=== PATIENT | male | born 1955 | race Caucasian/White ===

== ENCOUNTER 2018-10-13 21:07 | Inpatient (IN) | payer MEDICARE, OTHER ==
[2018-10-13 21:37] LABS: #Eosinphils 0.2 thou/uL (0.0-0.7); #Lymphocytes 2.7 thou/uL (1.20-3.40); #Monocytes 0.9 thou/uL (0.11-0.59); #Neutrophils 7.9 thou/uL (1.40-6.50); %Basophils 0.4 % (0.0-1.0); %Eosinophils 1.9 % (0.0-10.0); %Monocytes 7.8 % (0.0-10.0); Hemoglobin 14.5 g/dL (14.0-18.0); Mean Corpuscular HGB CONC 30.9 g/dL (32.0-36.0); Mean Corpuscular Hemoglobin 27.8 pg (27.0-31.0); Mean Platelet Volume 7.2 fL (7.4-10.4); Platelet Count 366 thou/uL (130-400); RBC Distribution Width 13.2 % (11.5-14.5); White Blood Cell (WBC) Count 11.7 thou/uL (4.8-10.8)
[2018-10-13] MEDS ORDERED: Heparin 10,000 UNITS/1 ML VIAL ONE (21:37)
[2018-10-13] MEDS ORDERED: Verapamil 5 MG/2 ML VIAL ONE (21:37)
[2018-10-13] MEDS ORDERED: Nitroglycerin 100MG/250ML BOT 250 ML ONE (21:37)
[2018-10-13 21:43] LABS: PTT 31.4 SEC (22.9-36.1); Prothrombin Time 13.5 SEC (12.0-14.7)
--- NOTE | 2018-10-13 21:43 | RAD ---
Chest one view HISTORY: Chest pain. FINDINGS: Cardiac silhouette is magnified and enlarged. Pulmonary vasculature is engorged. Diffuse mi ld airspace opacity. Mediastinum is midline. No lobar consolidation or evidence of pneumothorax. IMPRESSION: Pulmonary vascular congestion with mild diffuse edema.
[2018-10-13] MEDS ORDERED: Atropine Sulfate 1 mg/10 ml Syringe ONE (21:50)
[2018-10-13 21:55] LABS: ALT (SGPT) 15 U/L (8-55); AST (SGOT) 16 U/L (5-34); Albumin 3.8 g/dL (3.4-4.8); Alkaline Phosphatase 66 U/L (40-150); Anion Gap 13 mmol/L (10-20); BUN (Urea Nitrogen) 11 mg/dL (8.4-25.7); Bilirubin, Total 0.5 mg/dL (0.2-1.2); CK (CPK) 125 U/L (30-200); Calc. Creatinine Clearance 0 mL/min (70-130); Calcium 9.5 mg/dL (7.8-10.44); Carbon Dioxide 28 mmol/L (23-31); Chloride 99 mmol/L (98-107); Estimated GFR-MDRD 78; Globulin 3.3 g/dL (2.4-3.5); Glucose 158 mg/dL (80-115); Potassium 4.2 mmol/L (3.5-5.1); Protein, Total 7.1 g/dL (5.8-8.1); Sodium 136 mmol/L (136-145)
[2018-10-13 22:19] LABS: CKMB 3.5 ng/mL (0-6.6)
[2018-10-13] MEDS ORDERED: Heparin 10,000 UNITS/ 10 ML VIAL ONE (22:22)
[2018-10-13] MEDS ORDERED: Metoprolol Tartrate 5 MG/5 ML VIAL ONE (22:22)
[2018-10-13] MEDS ORDERED: Norepinephrine 4 MG/4 ML VIAL ONE (22:25)
[2018-10-13] MEDS ORDERED: Furosemide 40 MG/4 ML VIAL ONE (23:01)
[2018-10-13] MEDS ORDERED: Nitroglycerin 0.4 MG TAB (25 Tab Bottle) SL PRN (23:06)
[2018-10-13] MEDS ORDERED: Acetaminophen/Codeine 30-300mg Tablet PO PRN ×2 (23:06)
[2018-10-13] MEDS ORDERED: traMADol HCl 50 MG TAB PO PRN (23:06)
[2018-10-13] MEDS ORDERED: Norepinephrine 8 MG/250 ML BAG IVPB PRN (23:07)
[2018-10-13] MEDS ORDERED: Insulin Regular 300 UNITS/3 ML VIAL SC PRN (23:07)
[2018-10-13] MEDS ORDERED: Dextrose 50% Abboject 50 ML SYRINGE IVP PRN (23:07)
[2018-10-13] MEDS ORDERED: Dextrose 5% in Water 1,000 ML IV PRN (23:07)
[2018-10-13] MEDS ORDERED: Morphine 4 MG/ML VIAL SLOW IVP PRN ×2 (23:14→23:15)
[2018-10-13] MEDS ORDERED: Heparin 10,000 UNITS/ 10 ML VIAL SLOW IVP SCH (23:15)
[2018-10-13] MEDS ORDERED: Heparin 25,000 units/D5W 500 ML IV SCH (23:15)
[2018-10-13] MEDS ORDERED: ALPRAZolam 1 MG TAB PO SCH (23:45)
[2018-10-13] MEDS: Furosemide 40 MG/4 ML VIAL SLOW IVP SCH (23:55)
[2018-10-14 00:08] VITALS: BMI 50.0
[2018-10-14 00:46] LABS: Troponin I 0.882 ng/mL (< 0.028)
--- NOTE | 2018-10-14 02:34 | HP ---
INDICATION FOR ADMISSION: 63-year-old gentleman suffered an acute ST-segment elevation inferior myocardial infarction. HISTORY OF PRESENT ILLNESS: This very unfortunate 63-year-old gentleman who has had no previous cardiac history that he is aware of, started having some increasing chest pain around 6 p.m. this evening. He has been having some indigestion for the last couple months. He said the pain waxed and waned during the day today, but then became worse this evening, radiated to the left shoulder. He has taken a breathing treatment, did not improve. He has multiple risk factors of coronary artery disease which include hypertension, hypercholesterolemia, diabetes, continued tobacco abuse. PAST MEDICAL HISTORY: Significant for insulin-dependent diabetes, hypertension, COPD. SOCIAL HISTORY: He continues to smoke one-third pack a day since about 50 years. He is disabled. ALLERGIES: HE HAS INTOLERANCE TO CODEINE. MEDICATIONS: His medications, however, include, 1. Hydrocodone. 2. Alprazolam. 3. Ranitidine. 4. Some type of blood pressure medicine, which he cannot remember. 5. Aspirin. 6. He had been on cholesterol medicine in the past, was told to stop taking it and he was having some cramping. 7. He is on insulin as well as tamsulosin. 8. He is on Novolin insulin 9. Some type of medicine that he is uncertain as to whether or not it is a beta leandro. He takes about 25 mg tablet, he takes half a tablet twice a day. REVIEW OF SYSTEMS: He has dentures. He complaints of chest discomfort, gastroesophageal reflux disease. He continues to smoke. He has shortness of breath. He has underlying COPD. He denied any lower extremity claudication type symptoms. He had no GI or complaints. No other musculoskeletal complaints and no neurologic complaints. PHYSICAL EXAMINATION: GENERAL: Reveals a morbidly obese middle-aged gentleman. VITAL SIGNS: Blood pressure 156/106 and then decreased down to 120s to 130s systolic in the emergency room after he was given 2 mg of IV Lopressor. HEENT: Shows the head to be normocephalic and atraumatic. Carotid pulses are present without any bruits. CHEST: Actually appears to be clear to auscultation. CARDIOVASCULAR: Reveals a regular rhythm at this time, somewhat tachycardic, but otherwise appeared to be regular, could not hear any murmurs. ABDOMEN: Shows morbid obesity. Positive bowel sounds. EXTREMITIES: Show no clubbing or cyanosis. He has 1+ lower extremity edema. Pedal pulses are present. Radial pulse is present. NEUROLOGIC: The patient appears to be intact. SKIN: Warm and dry at this time. EKG shows an acute inferior myocardial infarction. Laboratory data is still pending. He does have a sinus rhythm. IMPRESSION AND PLAN: 1. Acute inferior myocardial infarction. The patient was taken emergently to the cardiac labor relations teacher to undergo further evaluation by cardiac catheterization, possible intervention. He continues to have chest pain 01/10 with EKG changes compatible with inferior myocardial infarction, ST-segment elevation. I have explained the procedure, the risks to him to include bleeding, infection, possible myocardial infarction, cerebrovascular accident, renal insufficiency, allergic contrast reaction, and even the possibility of . He understands and agrees to proceed. We will plan for emergent cardiac catheterization. 2. History of diabetes. We have no laboratory data as of yet. We will obtain the laboratory data. I will ask the Hospital Service to take over to do the admission of the patient so that we can address his diabetes as well as his chronic obstructive pulmonary disease. He most likely will need to have a Pulmonology evaluation also while he is in the hospital. [facility] Further recommendations will depend on the results of the cardiac catheterization. Job ID: [id number] [facility]
[2018-10-14] MEDS ORDERED: CEFAZOLIN 2 GM in Premix Bag 1 BAG IVPB SCH (07:30)
[2018-10-14] MEDS ORDERED: Phenylephrine HCL 10 MG/ML VIAL ONE (07:57)
[2018-10-14] MEDS ORDERED: Thrombin 5000 UNITS/5 ML VIAL ONE ×2 (07:57→15:26)
[2018-10-14] MEDS ORDERED: Heparin 10,000 UNITS/1 ML VIAL 30,000 UNITS in Sodium Chloride 0.9% 1,000 ML FS SCH (08:00)
[2018-10-14] MEDS ORDERED: [UNRECOGNIZED DRUG - OTHER] FS SCH (08:15)
[2018-10-14] MEDS ORDERED: Famotidine/PF 20 mg/2ml Vial ONE (08:39)
[2018-10-14] MEDS ORDERED: Insulin Regular 300 UNITS/3 ML VIAL ONE (08:39)
[2018-10-14] MEDS ORDERED: Norepinephrine 8 MG/0.9% NS 250 ML ONE (08:39)
[2018-10-14] MEDS ORDERED: Lisinopril 5 MG TAB PO SCH (09:00)
[2018-10-14] MEDS ORDERED: ALPRAZolam 0.25 MG TAB PO SCH (09:00)
[2018-10-14] MEDS ORDERED: Prevnar 13-Val Conj/PF 0.5 ML SYRINGE IM ONE (09:00)
[2018-10-14] MEDS ORDERED: ALPRAZolam 1 MG TAB PO SCH ×2 (09:00)
[2018-10-14] MEDS ORDERED: Carvedilol 6.25 MG TAB PO SCH (09:00)
[2018-10-14] MEDS ORDERED: Albumin 5% 500 ML ONE (11:24)
[2018-10-14] MEDS ORDERED: Dexamethasone 20 MG/5 ML VIAL ONE (11:24)
[2018-10-14] MEDS ORDERED: Bupivacaine HCl 0.5%/Epinephrine 1:200,000/PF 30 ml Vial ONE (11:24)
[2018-10-14] MEDS ORDERED: Acetaminophen 325 MG TAB PO PRN (11:37)
[2018-10-14] MEDS ORDERED: Norepinephrine 8 MG/0.9% NS 250 ML IVPB PRN (11:37)
[2018-10-14] MEDS ORDERED: Mag-Al 1200 mg/1200 mg/30 ML UDCUP PO PRN (11:37)
[2018-10-14] MEDS ORDERED: HYDROcodone/Acetaminophen 5/325 mg Tablet PO PRN ×2 (11:37)
[2018-10-14] MEDS ORDERED: Post-Op Insulin Drip Protocol IVPB ONE (11:37)
[2018-10-14] MEDS ORDERED: Guaifenesin DM 100-10/5 ML UDCUP PO PRN (11:37)
[2018-10-14] MEDS ORDERED: Nitroglycerin 50 MG/250 ML BOT 250 ML IVPB PRN (11:37)
[2018-10-14] MEDS ORDERED: Promethazine HCl 25 MG/ML VIAL IM PRN (11:37)
[2018-10-14] MEDS ORDERED: Potassium Chloride 20 MEQ/100 ML PREMIX BAG IVPB PRN (11:37)
[2018-10-14] MEDS ORDERED: Hetastarch 6% 500 ML 500 ML IVPB PRN (11:37)
[2018-10-14] MEDS ORDERED: Bisacodyl 10 MG SUPP PR PRN (11:37)
[2018-10-14] MEDS ORDERED: Bisacodyl 5 MG TAB PO PRN (11:37)
[2018-10-14] MEDS ORDERED: hydrALAZINE 20 MG/ML VIAL SLOW IVP PRN (11:37)
[2018-10-14] MEDS ORDERED: Fentanyl 100 MCG/2 ML VIAL SLOW IVP PRN ×2 (11:37)
--- NOTE | 2018-10-14 12:08 | CON ---
DATE OF CONSULTATION: 10/14/2018 CHIEF COMPLAINT: Chest pressure. HISTORY OF PRESENT ILLNESS: The patient is a 63-year-old, morbidly obese, diabetic, smoker, with about a 2-month history of chest discomfort described as pressure or indigestion and dyspnea on exertion. Last night while eating dinner, he had a severe episode of chest pressure with sensation that he needed to burp. It was bad enough and persisted long enough becoming worse and radiating to his left shoulder. When he began getting short of breath, EMS was summoned. He was found to have inferior ST elevations and his initial troponin upon arrival at the hospital last night was 0.632. He was taken urgently to the catheterization lab, where he was found to have an occluded dominant right coronary filling by right to right collaterals, high-grade distal left main lesion and significant lesions on either side of the first septal private duty lpn in the LAD. His symptoms by then were nearly resolved and he has had a relatively uneventful postinfarction course in the ICU overnight. The patient's past medical history is somewhat vague. He is followed in the [facility] and we do not have access to those records currently. He says that he has been diagnosed with diabetes and takes insulin and has for about 10 years. He has been diagnosed with some sort of an anxiety disorder and regularly takes Xanax. He has had back surgery and has arthritis in his knees and regularly takes hydrocodone for pain associated with that. He describes having high blood pressure, but does not know the name of the small 25 mg pill he takes. He describes some numbness and tingling in his feet, for which he takes gabapentin, although he is not sure of the dose. His family is to bring in his medications for review. He reports an intolerance to codeine, which causes a rash, but he is able to take hydrocodone without problem. He is a long-term smoker and describes being diagnosed with pulmonary fibrosis in the . FAMILY HISTORY: Significant for diabetes in his mother, but she apparently is still alive and doing well in her early to mid 90s. His father had cirrhosis and of cancer. He has a had a brother, who of a tongue cancer. REVIEW OF SYSTEMS: Negative for any eye, speech, facial, or extremity symptoms consistent with TIAs. When questioned about eye symptoms, he describes some left eye dryness and itching. He reports 2 months worth of dyspnea on exertion. He denies any claudication symptoms, but reports chronic knee pain and back pain. PHYSICAL EXAMINATION: VITAL SIGNS: His stated height is 5 feet 6 inches and weight is 310 pounds by bed scale. Heart rate is 82, blood pressure is 96/82, and on a BiPAP mask, his O2 saturations are 99%. HEENT: He has no obvious xanthelasma. NECK: He has no JVD. No carotid bruits. LUNGS: He has bilateral rales. HEART: He has a regular rate and rhythm. ABDOMEN: Obese, but soft and nontender. He has palpable radial, femoral, and posterior tibial pulses bilaterally. He has a palpable right dorsalis pedis pulse. I was not able to feel a left dorsalis pedis pulse. He has brisk capillary refill. He has no clubbing, cyanosis, or edema. His obesity is primarily truncal. NEUROLOGIC: Grossly nonfocal. LABORATORY DATA: His white count was 11.7, hemoglobin 14.5, hematocrit 46.8, and platelets 366,000. PT was 13.5 with an INR of 1.0 and a PTT of 31.4 on presentation and on heparin drip last night, his PTT was 82.4. His electrolytes were normal. Glucose was 158, BUN 11, and creatinine 0.97. LFTs were normal. Albumin is 3.3. CK was 125 and CK-MB was 3.5. His serial troponins starting at about 9:30 last night was 0.632, about 11:30 was 0.882, and then about 4:15 this morning, 5.070. His EKGs suggest mostly sinus rhythm, but he appears to have had some atrial fibrillation or flutter. Initially had some ST elevation in lead III. His cardiac catheterization shows about an 80% distal left main lesion with about a 70% lesion in the LAD proximal to a very high ramus type first diagonal and the first septal private duty lpn. Just after the first septal private duty lpn, there is a 70% to 80% percent lesion, there is some mild long narrowing in the origin and proximal portion of the bifurcated diagonal. He has some diffuse irregularity in his circumflex system with a focal modest lesion in the groove circumflex beyond a very small first obtuse marginal leading to modest sized obtuse marginal 2. He has an occluded right coronary artery that filled by right to right collaterals. By my estimation, left ventricular ejection fraction is around 30%, although it is calculated at 45% and left ventricular end diastolic pressure was 30. IMPRESSION AND PLAN: High-grade distal left main lesion and serial left anterior descending lesions on either side of the first septal private duty lpn and occluded right coronary artery in someone, who had protracted chest pain that has been slow to resolve. We will plan on coronary artery bypass grafting. Job ID: [id number] [facility]
[2018-10-14] MEDS ORDERED: Insulin Regular 300 UNITS/3 ML VIAL SC PRN (12:23)
[2018-10-14] MEDS ORDERED: Dextrose 50% Abboject 50 ML SYRINGE SLOW IVP PRN (12:23)
[2018-10-14] MEDS ORDERED: Dextrose 5% in Water 1,000 ML IV PRN (12:23)
[2018-10-14] MEDS ORDERED: CEFAZOLIN 1 GM VIAL ONE (13:45)
[2018-10-14] MEDS ORDERED: fentaNYL Citrate/PF 2,000 MCG in Sodium Chloride 0.9% 60 ML IV SCH (14:33)
[2018-10-14] MEDS ORDERED: DISCONTINUE PREVIOUS NARCOTIC PAIN MEDICATIONS AND BENZODIAZEPINES FS SCH (14:33)
[2018-10-14] MEDS ORDERED: Fentanyl BOLUS 250 ML IVPB PRN (14:33)
[2018-10-14] MEDS ORDERED: Morphine 2 MG/ML SYRINGE SLOW IVP PRN (14:33)
[2018-10-14] MEDS ORDERED: Propofol BOLUS 1,000 MG/100 ML VIAL IV PRN (14:33)
[2018-10-14] MEDS ORDERED: Lorazepam 2 MG/ML VIAL SLOW IVP PRN (14:33)
[2018-10-14] MEDS: Ketorolac Tromethamine 30 MG/ML VIAL IVP SCH ×3 (14:36→23:52)
[2018-10-14] MEDS: Sodium Chloride 0.9% 1,000 ML IV SCH (14:36)
[2018-10-14 15:12] LABS: INR-International Normal Ratio 1.3; PTT 30.9 SEC (22.9-36.1); Prothrombin Time 16.4 SEC (12.0-14.7)
--- NOTE | 2018-10-14 15:16 | RAD ---
EXAM: XR Chest 1 View Portable PROVIDED CLINICAL HISTORY: Post open heart COMPARISON: 10/13/2018 FINDINGS: Cardiac silhouette appears enlarged which may be least partially on the basis of portable technique. Median sternotomy changes are now seen. Prominence of the pulmonary vasculature and pulmonary interstitium persist. Diffuse bilateral airspace disease is appears worsened. Left-sided chest tube a nd mediastinal drains are seen. Endotracheal tube is now present, the tip of which projects in the region of the thoracic inlet. IMPRESSION: Interval postoperative change. Worsening bilateral airspace disease.
[2018-10-14 15:18] LABS: Actual Bicarbonate (HCO3a) 23.6 mEq/L (22-28); CO2 Tension 43.3 mmHg (35.0-45.0); Calcium, Ionized 1.14 mmol/L (1.12-1.30); Hemoglobin (Hb) 12.7 g/dL (14.0-18.0); O2 Tension (PaO2) 77.2 mmHg (> 80.0); Potassium - ABG Lab 5.11 mmol/L (3.70-5.30); pH, Arterial 7.35 (7.35-7.45)
[2018-10-14] MEDS: HUMULIN R 100 UNITS in Sodium Chloride 0.9% 100 ML IVPB SCH (15:19)
[2018-10-14 15:23] LABS: Anion Gap 13 mmol/L (10-20); BUN (Urea Nitrogen) 14 mg/dL (8.4-25.7); Calc. Creatinine Clearance 141 mL/min (70-130); Calcium 8.3 mg/dL (7.8-10.44); Carbon Dioxide 23 mmol/L (23-31); Chloride 106 mmol/L (98-107); Estimated GFR-MDRD 72; Glucose 174 mg/dL (80-115); Potassium 5.1 mmol/L (3.5-5.1); Sodium 137 mmol/L (136-145)
[2018-10-14] MEDS ORDERED: PHENYLEPHRINE-NS 100 MCG/ML 10 ML SYRINGE ONE (15:26)
[2018-10-14] MEDS ORDERED: Heparin 30,000 units/30 ml VIAL ONE (15:26)
[2018-10-14] MEDS ORDERED: Succinylcholine Chloride 20 MG/ML 10 ml SYRINGE FS ONE (15:26)
[2018-10-14] MEDS ORDERED: Potassium Chloride 60 MEQ/30 ML VIAL ONE (15:26)
[2018-10-14] MEDS ORDERED: Sodium Bicarb 50 MEQ/50 ML VIAL ONE (15:26)
[2018-10-14] MEDS ORDERED: Aminocaproic Acid 5 GM/20 ML VIAL ONE (15:26)
[2018-10-14] MEDS ORDERED: Papaverine 60 MG/2 ML VIAL ONE (15:26)
[2018-10-14] MEDS ORDERED: Lidocaine 2% PF 100 mg/5 ml Syringe ONE (15:26)
[2018-10-14] MEDS ORDERED: Mannitol 12.5 GM/50 ML ONE (15:26)
[2018-10-14] MEDS ORDERED: Calcium Chloride 1 GM/10 ML Abboject SYRINGE ONE (15:26)
[2018-10-14] MEDS ORDERED: Vecuronium 10 MG VIAL ONE ×2 (15:26→15:39)
[2018-10-14] MEDS ORDERED: Heparin 5,000 UNITS/ML VIAL ONE (15:26)
[2018-10-14] MEDS ORDERED: PROPOFOL 200 MG/20 ML VIAL ONE (15:26)
[2018-10-14] MEDS ORDERED: ePHEDrine 50 MG/ML VIAL ONE (15:26)
[2018-10-14] MEDS ORDERED: Magnesium 5 GM/10 ML VIAL ONE (15:26)
[2018-10-14] MEDS ORDERED: Protamine Sulfate 250 MG/25 ML VIAL ONE (15:26)
[2018-10-14 15:33] LABS: ALV-art Gradient 296.475 (0-20); Puncture Site ALINE
[2018-10-14] MEDS: Tamsulosin HCl 0.4 MG CAP PO SCH (15:38)
[2018-10-14 15:40] LABS: Band 21 % (5-11); Eosinophils 1 % (0-10); Hemoglobin 11.9 g/dL (14.0-18.0); Hypochromia SLIGHT = 6-15 cells (100X) (0-5/hpf); Lymphocytes 6 % (21-51); MDiff Complete? YES; Mean Corpuscular HGB CONC 31.2 g/dL (32.0-36.0); Mean Corpuscular Hemoglobin 28.3 pg (27.0-31.0); Mean Corpuscular Volume 90.7 fL (78.0-98.0); Mean Platelet Volume 7.3 fL (7.4-10.4); Metamyelocyte 1 % (0-0); Monocytes 2 % (0-10); Myelocyte 1 % (0-0); Neutrophil 68 % (42-75); Platelet Count 281 thou/uL (130-400); Platelet Morphology Comment Appears Adequate; RBC Distribution Width 13.3 % (11.5-14.5); Red Blood Cell (RBC) Count 4.19 mill/uL (4.70-6.10); White Blood Cell (WBC) Count 29.2 thou/uL (4.8-10.8)
[2018-10-14] MEDS ORDERED: Midazolam HCl 5 mg/5 ml Vial ONE (15:41)
--- NOTE | 2018-10-14 17:35 | PDOC.CTH ---
Cardiology Progress Note - Subjective Pt. seen and eval. by me. He is just backl from the OR after CABGx 4. He remains intubated and sedated. - ROS not able to obtain ROS - Objective Vital Signs Temp Pulse Resp BP Pulse Ox 10/14/18 16:00 12 10/14/18 15:48 99 10/14/18 15:34 84 111/65 10/14/18 15:32 12 10/14/18 15:00 97.9 F 10/14/18 08:00 97 Admit Weight 4.96 oz Weight 309 lb 15.519 oz 10/13/18 10/14/18 10/15/18 06:59 06:59 06:59 Intake Total 150.9 Output Total 1550 675 Balance -1399.1 -675 - Physical Examination Neck: no JVD present Lungs: CTA Heart: RRR Abdomen: no HSM, soft - Telemetry Telemetry Rhythm: NSR - Labs Result Diagrams: 10/14/18 14:53 10/14/18 14:53 Troponin/CKMB CK-MB (CK-2) 3.5 ng/mL (0-6.6) 10/13/18 21:23 Troponin I 5.070 ng/mL (< 0.028) H* 10/14/18 04:18 - Assessment/Plan 1. CAD. Left main stenosis. with 3 vessel disease. s/p CABG this AM x 4.. BP stable at present. 2. CMY: EF was mild -moderately decreased. Will start ALEKSEY-I and betablockers when taking po meds. 3. DM: on sliding scale. 4.Morbid obesity. Suggest dietary consult prior to d/c. 5. Chronic pain 6. anxiety 7. dyslipidemia.
[2018-10-14] MEDS: Atorvastatin Calcium 40 MG TAB PO SCH (21:09)
[2018-10-14] MEDS: Propofol 1,000 MG/100 ML VIAL IV PRN (21:09)
--- NOTE | 2018-10-14 21:44 | OP ---
DATE OF PROCEDURE: 10/14/2018 PROCEDURE PERFORMED: Coronary artery bypass grafting x4 with left internal mammary artery to the distal LAD and reverse greater saphenous vein graft from the aorta to the PDA, from the aorta to the first diagonal, and from the aorta (1st diagonal proximal anastomotic gunn) to the obtuse marginal; 5-Liberian right femoral arterial line placement. PREOPERATIVE DIAGNOSIS: Left main coronary artery disease, status post ST-elevation myocardial infarction. POSTOPERATIVE DIAGNOSIS: Left main coronary artery disease, status post ST-elevation myocardial infarction. DEER FARMER: Shar. ANESTHESIA: General endotracheal anesthesia. INDICATIONS: The patient is a 63-year-old morbidly obese, diabetic, smoker with a 2-month history of dyspnea on exertion, who over the last several days has had increasing problems of chest pressure reminiscent of indigestion. He presented last night with prolonged episode that was of increasing severity, that began radiating to his shoulder and was associated with shortness of breath. He was found to have ST elevations and an elevated troponin and cardiac catheterization demonstrated a very high-grade distal left main lesion with serial high-grade LAD lesions on either side of the first septal advertising supervisor and an occluded dominant right coronary filling distally by right to right collaterals. He had mildly decreased LV function. He is now taken to the operating room for revascularization. FINDINGS: The anesthesiologist was unable to cannulate either radial artery, so a 5-Liberian Cook catheter was used to cannulate the right femoral artery by the Seldinger technique. Pump time was 96 minutes. Cross-clamp time 55 minutes. He had a good quality JA. The utilized vein in the left thigh was slightly small, but of reasonably good quality, but much of the left lower extremity vein was of marginal to poor quality. The vein from the right thigh was slightly large, but otherwise of good quality. The LAD was about a 1.5 to 2 mm vessel. The first diagonal was about 2 to 2.5 mm proximal to its bifurcation. The obtuse marginal was a 1.5-to 2-mm vessel. The PDA was a 1-to 1.5-mm vessel. NARRATIVE REPORT: After informed consent was obtained, the patient was taken to the operating room, placed in supine position on the operating table. Attempts were made at placing a right radial arterial line by the anesthesiologist. This was unsuccessful using a blood pressure cuff to monitor pressure. General tracheal anesthesia was induced while the anesthesiologist attempted A-line placement in the left radial artery. I prepped and draped the right groin by the Seldinger technique. The right femoral artery was cannulated using a large-bore catheter and wire. The catheter easily passed over the wire and there was good blood return from the catheter when the wire was removed. There was good waveform when it was connected to monitoring. The line was secured. The patient's left upper chest was prepped and draped in sterile fashion. With the patient in Trendelenburg, a large-bore needle was used to cannulate the left subclavian vein and by the Seldinger technique, a triple-lumen central line kit was used to place a left subclavian line in that position. All 3 ports were easily aspirated and flushed. The line was secured. The patient's torso, groins, and lower extremities were prepped and draped in sterile fashion after ultrasonographically mapping the left saphenous vein. The saphenous vein was exposed at the thigh and endoscopically harvested from groin to mid calf by my lab assistant while I had performed a median sternotomy and harvested the left internal mammary artery through an intrapleural exposure. The patient was heparinized. The mammary was ligated and divided distally. There was good flow through the mammary which was instilled intraluminally with papaverine solution. Upon preparing the harvested vein for use as a graft, it became apparent that much of the vein was of rather poor quality, greater saphenous vein was exposed in the proximal right thigh and harvested from groin to about the knee, and prepared for use as a graft the vein using a skin bridge technique. The harvested sites were closed in layers of subcutaneous Vicryl and skin yolanda. The pericardium was opened and marsupialized. The aorta was palpated, it was soft. A double concentric pursestring of 2-0 Ethibond was placed in the ascending aorta just beyond the pericardial reflection. A very generous thymic fat pad had to be mobilized and retracted cephalad to expose the aorta. Single pursestring was placed in the right atrial appendage. Aortic and venous cannulae were inserted and secured by their pursestrings. Cardiopulmonary bypass was instituted and the patient was systemically cooled. The heart was examined and the vessels to be bypassed were identified. A longitudinal slit was made in the pericardium anterior to the left phrenic nerve through which the mammary pedicle could be passed. The plane between the aorta and the pulmonary artery was developed. An aortic cross-clamp was applied and cardioplegia was administered through an aortic root needle. When arrest had been achieved, attention was turned to the PDA after getting rough measurements of the distance from the aorta to the various target vessels. The right thigh graft was selected to be divided between the PDA and the diagonal, which ran in a ramus type position. The PDA was opened just beyond where the vessel was a palpably hard vessel. Saphenous vein was anastomosed there with running Prolene suture and the anastomosis tested by flushing cold cardioplegia down the graft. Attention was then turned to the obtuse marginal. The usable segment of saphenous vein from the left thigh was anastomosed to the obtuse marginal and the remaining vein from the right thigh was then anastomosed to the first diagonal. It was opted to not graft the second diagonal the distribution to the available conduit. The LAD was then opened and the mammary was anastomosed to it with running 7-0 Prolene and the pedicle tacked to the epicardium. The aortic cross-clamp was replaced with a partial occluding clamp and 2 aortotomies were made in the ascending aorta with a scalpel and punch incorporating the root needle site into the more proximal aortotomy. The PDA graft was brought along the AV groove and anastomosed to the proximal aortotomy end-to-side with running Prolene suture. The first diagonal graft was brought along the left side of the heart and anastomosed to the more distal aortotomy. A venotomy was made in the gunn of the diagonal graft proximal anastomosis and the OM vein graft was anastomosed there. The partial occluding clamp was removed and the vein grafts were de-aired and the bulldogs removed from them. The anastomoses were inspected for hemostasis and the proximal vein graft anastomoses were marked with small hemoclips. Posterior pericardial and left pleural drains were brought out through separate incisions and secured with suture. Right atrial and right ventricular temporary epicardial pacing wires were placed. The patient was then slowly weaned from cardiopulmonary bypass. Aortic and venous cannulae were removed and the pursestring secured. Protamine was administered when hemostasis was adequate and anterior mediastinal drain was placed. The mediastinal fat was tacked together to cover up the aorta in the proximal portions of the vein grafts and the inferior medial aspects of the pericardium were loosely tacked back to the diaphragmatic surface to effect a very loose pericardial closure. The cut sternal edges were treated with vancomycin paste and platelet-rich GPS. The sternum was then reapproximated with a combination of simple and [id number] #7 stainless steel wires. The soft tissue was irrigated and treated with platelet-poor GPS. The fascia was closed over the wires with #1 Vicryl. The subcutaneous tissue was reapproximated with 2-0 Vicryl and the skin was closed with a running 3-0 Vicryl subcuticular suture. The wounds were dressed and the patient was taken to the intensive care unit in stable condition. Job ID: [id number]
[2018-10-14 22:23] LABS: Hemoglobin 11.7 g/dL (14.0-18.0)
[2018-10-14 22:29] LABS: Potassium 4.5 mmol/L (3.5-5.1)
[2018-10-14] MEDS: Furosemide 40 MG/4 ML VIAL SLOW IVP SCH (23:05)
[2018-10-15] MEDS: Sodium Chloride 0.9% 1,000 ML IV SCH (02:30)
[2018-10-15 05:36] LABS: Anion Gap 14 mmol/L (10-20); BUN (Urea Nitrogen) 18 mg/dL (8.4-25.7); Calc. Creatinine Clearance 142 mL/min (70-130); Calcium 8.3 mg/dL (7.8-10.44); Carbon Dioxide 21 mmol/L (23-31); Chloride 108 mmol/L (98-107); Estimated GFR-MDRD 72; Glucose 131 mg/dL (80-115); Potassium 4.5 mmol/L (3.5-5.1); Sodium 138 mmol/L (136-145)
[2018-10-15 05:37] LABS: #Lymphocytes 1.4 thou/uL (1.20-3.40); #Neutrophils 13.2 thou/uL (1.40-6.50); %Basophils 0.1 % (0.0-1.0); %Eosinophils 0.1 % (0.0-10.0); %Lymphocytes 8.8 % (21.0-51.0); %Monocytes 6.5 % (0.0-10.0); %Neutrophils 84.5 % (42.0-75.0); Hemoglobin 10.5 g/dL (14.0-18.0); Mean Corpuscular HGB CONC 31.6 g/dL (32.0-36.0); Mean Corpuscular Hemoglobin 28.5 pg (27.0-31.0); Mean Corpuscular Volume 90.2 fL (78.0-98.0); Mean Platelet Volume 8.2 fL (7.4-10.4); Platelet Count 264 thou/uL (130-400); RBC Distribution Width 13.4 % (11.5-14.5); Red Blood Cell (RBC) Count 3.68 mill/uL (4.70-6.10); White Blood Cell (WBC) Count 15.6 thou/uL (4.8-10.8)
[2018-10-15] MEDS: Ketorolac Tromethamine 30 MG/ML VIAL IVP SCH (06:00)
[2018-10-15] MEDS: Propofol 1,000 MG/100 ML VIAL IV PRN (06:00)
[2018-10-15] MEDS: HUMULIN R 100 UNITS in Sodium Chloride 0.9% 100 ML IVPB SCH (06:42)
[2018-10-15 07:15] LABS: Actual Bicarbonate (HCO3a) 22.5 mEq/L (22-28); Base Excess (BEa) -1.3 mEq/L (-2.0 to +3.0); CO2 Tension 34.3 mmHg (35.0-45.0); Calcium, Ionized 1.12 mmol/L (1.12-1.30); Carboxyhemoglobin (COHb) 0.9 gm% (0.0-3.0); Hemoglobin (Hb) 10.7 g/dL (14.0-18.0); O2 Tension (PaO2) 110.8 mmHg (> 80.0); Potassium - ABG Lab 4.39 mmol/L (3.70-5.30); pH, Arterial 7.43 (7.35-7.45)
[2018-10-15 07:16] LABS: ALV-art Gradient 131.525 (0-20); Puncture Site ALINE
--- NOTE | 2018-10-15 07:44 | RAD ---
CHEST 1 VIEW: Date: 10/15/18 INDICATION: Status post open heart surgery. COMPARISON: Prior exam dated 10/14/18. IMPRESSION: Cardiomegaly, pulmonary vascular congestion, and central edema pattern stable. ET tube and left-sided thoracostomy tube similar appearing. Midline sternotomy changes are similar. No pneumothorax is evid ent. POS: BH
--- NOTE | 2018-10-15 08:02 | PDOC.PN ---
- Subjective Encounter Start Date: 10/14/18 Encounter Start Time: 14:00 Subjective: pt intubated - Objective Vital Signs & Weight: Vital Signs (12 hours) Temp Pulse Resp BP 10/15/18 06:00 12 10/15/18 04:00 98.7 F 12 10/15/18 02:35 72 10/15/18 02:00 12 10/15/18 00:00 98.4 F 12 10/14/18 23:27 75 98/55 L 10/14/18 22:00 12 Weight Admit Weight 4.96 oz Weight 306 lb 0.026 oz Most Recent Monitor Data Heart Rate from ECG 81 NIBP 109/66 NIBP BP-Mean 80 Respiration from ECG 12 SpO2 96 I&O: 10/14/18 10/15/18 10/16/18 06:59 06:59 06:59 Intake Total 150.9 971 Output Total 1550 1348 Balance -1399.1 -377 Result Diagrams: 10/17/18 04:56 10/16/18 04:40 Additional Labs: Accuchecks 10/15/18 10/15/18 10/15/18 06:07 04:47 04:16 POC Glucose 139 H 141 H 122 H 10/15/18 10/15/18 10/15/18 03:03 02:06 01:04 POC Glucose 128 H 133 H 122 H 10/15/18 10/14/18 10/14/18 00:12 23:02 22:03 POC Glucose 128 H 139 H 148 H 10/14/18 10/14/18 10/14/18 21:18 20:19 19:19 POC Glucose 149 H 149 H 161 H 10/14/18 10/14/18 10/14/18 18:02 16:58 16:10 POC Glucose 161 H 167 H 171 H 10/14/18 10/14/18 10/14/18 14:59 14:21 12:30 POC Glucose 169 H 165 H 182 H 10/14/18 10/14/18 10/14/18 11:48 10:34 09:23 POC Glucose 167 H 164 H 163 H Phys Exam - Physical Examination Respiratory: no wheezing, no rales, no rhonchi, wheezing present, clear to auscultation bilateral Cardiovascular: RRR, no significant murmur, no rub, gallop, irregular Gastrointestinal: soft, non-tender, no distention, positive bowel sounds Musculoskeletal: no edema, pulses present, edema present Dx/Plan (1) CAD (coronary artery disease) Code(s): I25.10 - ATHSCL HEART DISEASE OF [place] CORONARY ARTERY W/O ANG PCTRS Status: Acute (2) Diabetes mellitus Code(s): E11.9 - TYPE 2 DIABETES MELLITUS WITHOUT COMPLICATIONS Status: Acute Comment: SSI, POC glucose. (3) COPD (chronic obstructive pulmonary disease) Status: Acute Comment: Well compensated. Continue DUOnebs (4) S/P CABG x 4 Status: Acute Comment: Per CV surg. Doing well post-op - Plan pt intubated, on insulin drip. -: will continue to monitor * . Review of Systems - Review of Systems Other: intubated - Medications/Allergies Allergies/Adverse Reactions: Allergies Allergy/AdvReac Type Severity Reaction Status Date / Time codeine Allergy Mild Hives Verified 10/14/18 00:14 Medications: Current Medications Hydrocodone Bitart/Acetaminophen ([place] 5/325) 1 tab PO Q4H PRN PRN Reason: Moderate Pain (4-6) Last Admin: 10/16/18 17:33 Dose: 1 tab Hydrocodone Bitart/Acetaminophen ([place] 5/325) 2 tab PO Q4H PRN PRN Reason: Severe Pain (7-10) Last Admin: 10/16/18 21:29 Dose: 2 tab Al Hydroxide/Mg Hydroxide (Maalox) 30 ml PO Q4H PRN PRN Reason: Indigestion Albuterol/Ipratropium (Duoneb) 3 ml NEB [id number] PRN PRN Reason: SHORTNESS OF BREATH Last Admin: 10/15/18 08:49 Dose: 3 ml Albuterol/Ipratropium (Duoneb) 3 ml NEB [id number] SUE Last Admin: 10/17/18 00:10 Dose: 3 ml Alprazolam (Xanax) 1 mg PO TID PRN PRN Reason: Anxiety Last Admin: 10/16/18 23:31 Dose: 1 mg Artificial Tears (Tears Naturale) 0 drop EA EYE PRN PRN PRN Reason: Dry Eyes Aspirin (Ecotrin) 325 mg PO DAILY [facility] Last Admin: 10/16/18 09:04 Dose: 325 mg Atorvastatin Calcium (Lipitor) 80 mg PO HS [facility] Last Admin: 10/16/18 21:00 Dose: 80 mg Bisacodyl (Dulcolax) 10 mg PO Q12H PRN PRN Reason: Constipation Bisacodyl (Dulcolax) 10 mg DC Q12H PRN PRN Reason: Constipation Carvedilol (Coreg) 3.125 mg PO BID [facility] Last Admin: 10/16/18 21:01 Dose: 3.125 mg Dextrose/Water (Dextrose 50%) 25 gm SLOW IVP PRN PRN PRN Reason: Hypoglycemia Diphenhydramine HCl (Benadryl) 25 mg PO Q6H PRN PRN Reason: Itching & Insomnia or Jonyn Chuy Docusate Sodium (Colace) 100 mg PO BID [facility] Last Admin: 10/16/18 21:02 Dose: 100 mg Furosemide (Lasix) 40 mg PO BID [facility] Stop: 10/19/18 21:01 Last Admin: 10/16/18 21:02 Dose: 40 mg Glucagon (Glucagon) 1 mg IM PRN PRN PRN Reason: Hypoglycemia Guaifenesin/Dextromethorphan (Robitussin Dm) 15 ml PO Q4H PRN PRN Reason: Cough Dextrose/Water (D5w) 1,000 mls @ 0 mls/hr IV .Q0M PRN PRN Reason: Hypoglycemia Insulin Human Lispro (Humalog) 0 units SC .AGGRESSIVE SLIDING PRN PRN Reason: Aggressive Correctional Scale Last Admin: 10/16/18 21:00 Dose: 13 unit Levothyroxine Sodium (Synthroid) 150 mcg PO 0600 [facility] Last Admin: 10/17/18 05:23 Dose: 150 mcg Metolazone (Zaroxolyn) 10 mg PO 0830 [facility] Stop: 10/17/18 08:31 Last Admin: 10/16/18 09:01 Dose: 10 mg Mineral Oil (Fleet Mineral Oil) 133 ml DC DAILYPRN PRN PRN Reason: Constipation Nicotine (Nicoderm Patch) 14 mg TD Q24HR [facility] Last Admin: 10/16/18 09:02 Dose: 14 mg Nitroglycerin (Nitrostat) 0.4 mg SL Q5MIN PRN PRN Reason: Chest Pain Ondansetron HCl (Zofran) 4 mg IVP Q6H PRN PRN Reason: Nausea/Vomiting Last Admin: 10/17/18 05:14 Dose: 4 mg Pantoprazole Sodium (Protonix) 40 mg PO DAILY [facility] Last Admin: 10/16/18 07:39 Dose: 40 mg Potassium Chloride (K-Dur) 40 meq PO BID-[facility] Stop: 10/19/18 17:01 Last Admin: 10/16/18 17:33 Dose: 40 meq Sodium Chloride (Flush - Normal Saline) 10 ml IVF Q12HR [facility] Last Admin: 10/16/18 21:03 Dose: 10 ml Tamsulosin HCl (Flomax) 0.4 mg PO 1700 [facility] Last Admin: 10/16/18 17:33 Dose: 0.4 mg Zolpidem Tartrate (Ambien) 5 mg PO HSPRN PRN PRN Reason: Insomnia
[2018-10-15] MEDS: Aspirin 325 MG TAB PO SCH ×2 (09:18→10:44)
[2018-10-15] MEDS ORDERED: Dextrose 5% in Water 1,000 ML IV PRN (09:48)
[2018-10-15] MEDS ORDERED: Dextrose 50% Abboject 50 ML SYRINGE SLOW IVP PRN (09:48)
--- NOTE | 2018-10-15 10:02 | CON ---
DATE OF CONSULTATION: HISTORY OF PRESENT ILLNESS: Aidan Kennedy is a 63-year-old morbidly obese gentleman, status post CABG, status post cardiac cath, presented via the ER with acute ST-segment inferior myocardial infarction. He is postop on the vent. I spoke to his daughter at length. He normally goes to the [facility] for routine care. He has severe limitation to activity. He can barely walk even 100 feet without getting markedly short of breath. Some of it is aggravated by his chronic arthritis in his knees. PAST MEDICAL HISTORY: Diabetes; hypertension; COPD; sleep apnea, using CPAP machine, apparently broke; history of previous lung nodule, status post biopsy. PAST SURGICAL HISTORY: Includes two back surgeries, lung biopsy. SOCIAL HISTORY: Still smoking. Longstanding history of tobacco abuse. MEDICATIONS: His home medicine includes, 1. Trazodone 75. 2. Glipizide 10. 3. Ranitidine 150. 4. Metoprolol 12.5 b.i.d. 5. Synthroid 150. 6. Insulin. 7. Gabapentin 600 three times a day. 8. Aspirin. 9. Xanax 1 mg 3 times a day. ALLERGIES: CODEINE. SOCIAL AND FAMILY HISTORY: Unremarkable. REVIEW OF SYSTEMS: Otherwise 10-point negative. PHYSICAL EXAMINATION: VITAL SIGNS: His sats are 94% to 98% on the vent, blood pressure 120/80 on the A-line, pulse 93, he is afebrile. GENERAL: He is awake, alert, responsive. CHEST: No rhonchi or crackles. CARDIAC: Normal S1 and S2. No gallops. ABDOMEN: Mass. LABORATORY DATA: PO2 is 110, pCO2 of 34, pH of 7.43 on a rate of 12, 40%. Glucose 116. Chest x-ray shows diffuse bilateral pulmonary infiltrates consistent with CHF. His labs from yesterday show white count [id number], hemoglobin and hematocrit 10 and 30, platelet count is normal, and his chemistry profile shows his lytes are normal. IMPRESSION: 1. Status post coronary artery bypass graft, left main. 2. Chronic obstructive pulmonary disease. 3. Congestive heart failure. 4. Morbid obesity. 5. Sleep apnea. 6. Diabetes. PLAN: We will try and wean and extubate. Neb treatments. Supportive care. PT. Empiric antibiotics. We will follow. 45 minutes of critical care time. Job ID: [id number]
[2018-10-15] MEDS ORDERED: Metolazone 5 MG TAB PO SCH (10:30)
[2018-10-15] MEDS ORDERED: Furosemide 40 MG/4 ML VIAL SLOW IVP SCH ×2 (10:30→18:00)
[2018-10-15] MEDS: cefTRIAXone\\ROCEPHIN 1 GM in Sodium Chloride 0.9% 100 ML IVPB SCH (10:45)
[2018-10-15] MEDS: HYDROcodone/Acetaminophen 5/325 mg Tablet PO PRN ×3 (10:47→23:03)
[2018-10-15] MEDS: ALPRAZolam 1 MG TAB PO PRN ×3 (10:48→22:48)
[2018-10-15] MEDS: Ondansetron PF 4 MG/2 ML Vial IVP PRN (13:42)
[2018-10-15] MEDS: Tamsulosin HCl 0.4 MG CAP PO SCH (16:46)
--- NOTE | 2018-10-15 17:12 | PRG ---
DATE OF SERVICE: 10/15/2018 SUBJECTIVE: Mr. Kennedy is a very pleasant 63-year-old gentleman that is now postop day #1 from bypass surgery and bypass surgery yesterday morning for severe 3-vessel coronary artery disease associated with left main stenosis. He has history of diabetes as well as COPD. This morning, his chest x-ray shows increased congestion. However, the BNP is only 260, but he appears to have volume overload. His BUN and creatinine are 18 and 1.03. He had a decrease in left ventricular systolic function and will certainly need to undergo diuretics will undergo diuretic therapy. We will continue that today. OBJECTIVE: GENERAL: He is extubated. He is alert. He has some mild chest discomfort, but otherwise is doing relatively well. VITAL SIGNS: Show heart rate of 100, blood pressure is 109/66, respiratory rate is about 20. He is afebrile at that time. CHEST: His chest has scattered wheezing. He does have some expiratory wheezing and the right side has some mild congestion. CARDIOVASCULAR: Reveals a regular rate and rhythm. I did not hear any gross murmurs. ABDOMEN: Shows morbid obesity. Decreased bowel sounds are present. EXTREMITIES: Lower extremities are wrapped in Sudhakar wraps and otherwise, I do not see any significant edema. Pedal pulses are difficult to palpate. NEUROLOGIC: The patient is intact. LABORATORY DATA: Shows a sodium 138, potassium 4.5, CO2 of 21 with a creatinine 1.03. BNP was 260. Blood sugar is 116. WBC of 15.6 with a hemoglobin 10.5. On admission, hemoglobin was 14.5 and platelet count is 264,000. IMPRESSION: Stable patient, status post 4-vessel bypass surgery for severe 3-vessel coronary artery disease with associated left main stenosis. [id number] decrease in left ventricular systolic function. We will start him on his regimen of medications with SUDHAKAR inhibitors, diuretics, and beta blockers. If he is able to tolerate the beta blockers due to his underlying chronic obstructive pulmonary disease, we will put him on Bystolic or Coreg due to his chronic obstructive pulmonary disease. Morbid obesity. He will need to undergo consultation with dietitian prior to discharge. History of chronic pain. We will need to continue to monitor this with the patient and treated appropriately. Hypertension, this is under good control at this time. We will continue to follow the patient with you. The list of his present medications include ceftriaxone, insulin, Ketorolac, Xanax, aspirin 325 mg a day, atorvastatin 80 mg q.p.m., furosemide he was given 40 mg this morning and I believe this will start on a daily basis. He is on albuterol treatments, levothyroxine 150 mcg daily, Zaroxolyn was given one dose. He is on Protonix, Flomax 0.4 mg q.p.m. He is on other p.r.n. medications, but he overall seems to be doing quite well after his bypass surgery. Job ID: [id number]
[2018-10-15] MEDS: HumaLOG 300 UNITS/3 ML VIAL SC PRN ×2 (17:23→22:52)
[2018-10-15] MEDS: Carvedilol 3.125 MG TAB PO SCH (20:10)
[2018-10-15] MEDS: Atorvastatin Calcium 40 MG TAB PO SCH (20:10)
--- NOTE | 2018-10-15 22:33 | PDOC.PN ---
- Subjective Encounter Start Date: 10/15/18 Encounter Start Time: 10:30 Subjective: pt up in bed complains of some incision pain - Objective Vital Signs & Weight: Vital Signs (12 hours) Temp Pulse Resp Pulse Ox 10/15/18 20:00 98.6 F 10/15/18 19:00 96 10/15/18 18:59 96 10/15/18 13:47 116 H 16 90 L 10/15/18 12:00 98 F 93 L Weight Admit Weight 4.96 oz Weight 306 lb 0.026 oz Most Recent Monitor Data Heart Rate from ECG 109 NIBP 105/67 NIBP BP-Mean 79 Respiration from ECG 19 SpO2 96 I&O: 10/14/18 10/15/18 10/16/18 06:59 06:59 06:59 Intake Total 150.9 971 1050 Output Total 1550 1348 3025 [facility] -1399.1 -377 -1975 Result Diagrams: 10/17/18 04:56 10/17/18 04:56 Additional Labs: Accuchecks 10/15/18 10/15/18 10/15/18 15:35 11:46 08:27 POC Glucose 193 H 129 H 116 H 10/15/18 10/15/18 10/15/18 07:06 06:07 04:47 POC Glucose 117 H 139 H 141 H 10/15/18 10/15/18 10/15/18 04:16 03:03 02:06 POC Glucose 122 H 128 H 133 H 10/15/18 10/15/18 10/14/18 01:04 00:12 23:02 POC Glucose 122 H 128 H 139 H 10/14/18 10/14/18 10/14/18 22:03 21:18 20:19 POC Glucose 148 H 149 H 149 H 10/14/18 19:19 POC Glucose 161 H Phys Exam - Physical Examination Respiratory: no wheezing, no rales, no rhonchi, wheezing present, clear to auscultation bilateral Cardiovascular: RRR, no significant murmur, no rub, gallop, irregular Gastrointestinal: soft, non-tender, no distention, positive bowel sounds Musculoskeletal: no edema, pulses present, edema present Neurological: non-focal, normal sensation, moves all 4 limbs Dx/Plan (1) CAD (coronary artery disease) Code(s): I25.10 - ATHSCL HEART DISEASE OF [place] CORONARY ARTERY W/O ANG PCTRS Status: Acute (2) Diabetes mellitus Code(s): E11.9 - TYPE 2 DIABETES MELLITUS WITHOUT COMPLICATIONS Status: Acute Comment: SSI, POC glucose. (3) COPD (chronic obstructive pulmonary disease) Status: Acute Comment: Well compensated. Continue DUOnebs (4) S/P CABG x 4 Status: Acute Comment: Per CV surg. Doing well post-op - Plan pt off insulin drip -: still has his chest tubes, encouraged to use IS -: will follow along * . Review of Systems - Review of Systems Respiratory: negative: Cough, Dry, Shortness of Breath, Hemoptysis, SOB with Excertion, Pleuritic Pain, Sputum, Wheezing Cardiovascular: negative: chest pain, palpitations, orthopnea, paroxysmal nocturnal dyspnea, edema, light headedness, other Gastrointestinal: negative: Nausea, Vomiting, Abdominal Pain, Diarrhea, Constipation, Melena, Hematochezia, Other - Medications/Allergies Allergies/Adverse Reactions: Allergies Allergy/AdvReac Type Severity Reaction Status Date / Time codeine Allergy Mild Hives Verified 10/14/18 00:14 Medications: Current Medications Hydrocodone Bitart/Acetaminophen ([place] 5/325) 1 tab PO Q4H PRN PRN Reason: Moderate Pain (4-6) Last Admin: 10/16/18 17:33 Dose: 1 tab Hydrocodone Bitart/Acetaminophen ([place] 5/325) 2 tab PO Q4H PRN PRN Reason: Severe Pain (7-10) Last Admin: 10/16/18 21:29 Dose: 2 tab Al Hydroxide/Mg Hydroxide (Maalox) 30 ml PO Q4H PRN PRN Reason: Indigestion Albuterol/Ipratropium (Duoneb) 3 ml NEB [id number] PRN PRN Reason: SHORTNESS OF BREATH Last Admin: 10/15/18 08:49 Dose: 3 ml Albuterol/Ipratropium (Duoneb) 3 ml NEB [id number] SUE Last Admin: 10/17/18 00:10 Dose: 3 ml Alprazolam (Xanax) 1 mg PO TID PRN PRN Reason: Anxiety Last Admin: 10/16/18 23:31 Dose: 1 mg Artificial Tears (Tears Naturale) 0 drop EA EYE PRN PRN PRN Reason: Dry Eyes Aspirin (Ecotrin) 325 mg PO DAILY [facility] Last Admin: 10/16/18 09:04 Dose: 325 mg Atorvastatin Calcium (Lipitor) 80 mg PO HS [facility] Last Admin: 10/16/18 21:00 Dose: 80 mg Bisacodyl (Dulcolax) 10 mg PO Q12H PRN PRN Reason: Constipation Bisacodyl (Dulcolax) 10 mg MS Q12H PRN PRN Reason: Constipation Carvedilol (Coreg) 3.125 mg PO BID [facility] Last Admin: 10/16/18 21:01 Dose: 3.125 mg Dextrose/Water (Dextrose 50%) 25 gm SLOW IVP PRN PRN PRN Reason: Hypoglycemia Diphenhydramine HCl (Benadryl) 25 mg PO Q6H PRN PRN Reason: Itching & Insomnia or Jonny Chuy Docusate Sodium (Colace) 100 mg PO BID [facility] Last Admin: 10/16/18 21:02 Dose: 100 mg Furosemide (Lasix) 40 mg PO BID [facility] Stop: 10/19/18 21:01 Last Admin: 10/16/18 21:02 Dose: 40 mg Glucagon (Glucagon) 1 mg IM PRN PRN PRN Reason: Hypoglycemia Guaifenesin/Dextromethorphan (Robitussin Dm) 15 ml PO Q4H PRN PRN Reason: Cough Dextrose/Water (D5w) 1,000 mls @ 0 mls/hr IV .Q0M PRN PRN Reason: Hypoglycemia Insulin Human Lispro (Humalog) 0 units SC .AGGRESSIVE SLIDING PRN PRN Reason: Aggressive Correctional Scale Last Admin: 10/16/18 21:00 Dose: 13 unit Levothyroxine Sodium (Synthroid) 150 mcg PO 0600 [facility] Last Admin: 10/17/18 05:23 Dose: 150 mcg Metolazone (Zaroxolyn) 10 mg PO 0830 [facility] Stop: 10/17/18 08:31 Last Admin: 10/16/18 09:01 Dose: 10 mg Mineral Oil (Fleet Mineral Oil) 133 ml MS DAILYPRN PRN PRN Reason: Constipation Nicotine (Nicoderm Patch) 14 mg TD Q24HR [facility] Last Admin: 10/16/18 09:02 Dose: 14 mg Nitroglycerin (Nitrostat) 0.4 mg SL Q5MIN PRN PRN Reason: Chest Pain Ondansetron HCl (Zofran) 4 mg IVP Q6H PRN PRN Reason: Nausea/Vomiting Last Admin: 10/17/18 05:14 Dose: 4 mg Pantoprazole Sodium (Protonix) 40 mg PO DAILY [facility] Last Admin: 10/16/18 07:39 Dose: 40 mg Potassium Chloride (K-Dur) 40 meq PO BID-[facility] Stop: 10/19/18 17:01 Last Admin: 10/16/18 17:33 Dose: 40 meq Sodium Chloride (Flush - Normal Saline) 10 ml IVF Q12HR [facility] Last Admin: 10/16/18 21:03 Dose: 10 ml Tamsulosin HCl (Flomax) 0.4 mg PO 1700 [facility] Last Admin: 10/16/18 17:33 Dose: 0.4 mg Zolpidem Tartrate (Ambien) 5 mg PO HSPRN PRN PRN Reason: Insomnia
[2018-10-16] MEDS: HYDROcodone/Acetaminophen 5/325 mg Tablet PO PRN ×5 (02:26→21:29)
[2018-10-16 05:12] LABS: #Lymphocytes 1.4 thou/uL (1.20-3.40); #Monocytes 2.2 thou/uL (0.11-0.59); #Neutrophils 15.6 thou/uL (1.40-6.50); %Basophils 0.1 % (0.0-1.0); %Eosinophils 0.2 % (0.0-10.0); %Monocytes 11.2 % (0.0-10.0); %Neutrophils 81.5 % (42.0-75.0); Hemoglobin 9.6 g/dL (14.0-18.0); Mean Corpuscular HGB CONC 30.8 g/dL (32.0-36.0); Mean Corpuscular Hemoglobin 28.3 pg (27.0-31.0); Mean Corpuscular Volume 91.9 fL (78.0-98.0); Mean Platelet Volume 7.8 fL (7.4-10.4); Platelet Count 263 thou/uL (130-400); RBC Distribution Width 13.5 % (11.5-14.5); Red Blood Cell (RBC) Count 3.39 mill/uL (4.70-6.10); White Blood Cell (WBC) Count 19.1 thou/uL (4.8-10.8)
[2018-10-16 05:27] LABS: Anion Gap 12 mmol/L (10-20); BUN (Urea Nitrogen) 23 mg/dL (8.4-25.7); Calc. Creatinine Clearance 133 mL/min (70-130); Calcium 8.5 mg/dL (7.8-10.44); Carbon Dioxide 30 mmol/L (23-31); Chloride 99 mmol/L (98-107); Estimated GFR-MDRD 68; Glucose 235 mg/dL (80-115); Potassium 4.5 mmol/L (3.5-5.1); Sodium 136 mmol/L (136-145)
[2018-10-16] MEDS: Levothyroxine 150 MCG TAB PO SCH (06:04)
[2018-10-16] MEDS: HumaLOG 300 UNITS/3 ML VIAL SC PRN ×3 (06:09→21:00)
[2018-10-16] MEDS: Ondansetron PF 4 MG/2 ML Vial IVP PRN (07:22)
[2018-10-16] MEDS: Aspirin 325 MG TAB PO SCH (07:38)
[2018-10-16] MEDS: cefTRIAXone\\ROCEPHIN 1 GM in Sodium Chloride 0.9% 100 ML IVPB SCH (07:38)
[2018-10-16] MEDS: Carvedilol 3.125 MG TAB PO SCH ×3 (07:39→21:01)
[2018-10-16] MEDS ORDERED: Bisacodyl 5 MG TAB PO PRN (07:45)
[2018-10-16] MEDS ORDERED: Nitroglycerin 0.4 MG TAB (25 Tab Bottle) SL PRN (07:45)
[2018-10-16] MEDS ORDERED: Bisacodyl 10 MG SUPP PR PRN (07:45)
[2018-10-16] MEDS ORDERED: Mag-Al 1200 mg/1200 mg/30 ML UDCUP PO PRN (07:45)
[2018-10-16] MEDS ORDERED: diphenhydrAMINE 25 MG CAP PO PRN (07:45)
[2018-10-16] MEDS ORDERED: Guaifenesin DM 100-10/5 ML UDCUP PO PRN (07:45)
[2018-10-16] MEDS ORDERED: Mineral Oil ENEMA PR PRN (07:45)
[2018-10-16] MEDS ORDERED: Zolpidem Tartrate 5 MG TAB PO PRN (07:45)
[2018-10-16] MEDS ORDERED: Artificial Tears 18 DROP/0.9 ML EA EYE PRN (07:45)
--- NOTE | 2018-10-16 08:02 | RAD ---
AP view chest. HISTORY: Open heart surgery AP view chest obtained on 10/16/2018. Comparison made to previous exam from 10/15/2018. Sternotomy wires seen. Left-sided chest tube seen. A left subclavian central line is in place. Cardiomegaly seen. Pulmonary vascular congestion is seen. No evidence of pneumonia or pneumothorax seen. IMPRESSION: Status post thoracotomy. Cardiomegaly is noted.
[2018-10-16] MEDS: Potassium Chloride 20 MEQ TAB PO SCH ×2 (09:01→17:33)
[2018-10-16] MEDS: Docusate 100 MG CAP PO SCH ×2 (09:01→21:02)
[2018-10-16] MEDS: Metolazone 5 MG TAB PO SCH (09:01)
[2018-10-16] MEDS: Furosemide 40 MG TAB PO SCH ×2 (09:01→21:02)
[2018-10-16] MEDS: Nicotine 14 MG PATCH TD SCH (09:02)
[2018-10-16] MEDS: Aspirin 325 mg Enteric Coated Tablet PO SCH (09:04)
--- NOTE | 2018-10-16 10:26 | PRG ---
DATE OF SERVICE: 10/16/2018 SUBJECTIVE: This morning, he is awake, alert, responsive, post extubation. He is doing well. He denies any wheezing or shortness of breath. OBJECTIVE: VITAL SIGNS: His sats are 93% on 2 L, pulse 103, blood pressure 160/80, and respiratory rate 19. CHEST: Bilateral crackles. No wheezing. CARDIAC: Normal S1, S2. No gallops. ABDOMEN: No masses. IMPRESSION: 1. Status post coronary artery bypass graft. 2. Congestive heart failure. 3. Morbid obesity. 4. Diabetes. 5. Sleep apnea. 6. Questionable pulmonary fibrosis versus end-stage lung disease. PLAN: Continue diuretics, nocturnal CPAP, BiPAP, PT, supportive care. We will follow. Job ID: [id number]
--- NOTE | 2018-10-16 11:28 | PDOC.CTH ---
Cardiology Progress Note - Subjective The pt seen and examined. No overnight events. No cardiac complaints. - Objective Vital Signs Temp Pulse Pulse Pulse Resp BP BP 10/16/18 08:59 105 H 118 H 153/113 H 126/81 10/16/18 08:08 115 H 20 10/16/18 07:45 10/16/18 07:00 98.7 F 10/16/18 04:00 98.1 F 10/16/18 03:00 98.3 F 10/16/18 00:38 10/16/18 00:00 98.1 F Pulse Ox Pulse Ox Pulse Ox 10/16/18 08:59 97 90 L 10/16/18 08:08 94 L 10/16/18 07:45 94 L 10/16/18 07:00 10/16/18 04:00 10/16/18 03:00 10/16/18 00:38 99 10/16/18 00:00 Admit Weight 4.96 oz Weight 304 lb 3.806 oz 10/15/18 10/16/18 10/17/18 06:59 06:59 06:59 Intake Total 971 1510 480 Output Total 1348 3485 235 Balance -377 -1975 245 - Physical Examination General/Neuro: alert & oriented x3 Neck: no JVD present Lungs: other: (diminished at bases) Heart: RRR Abdomen: soft Extremities: other: (Generalized edema) - Telemetry Telemetry Rhythm: ST 100s - Labs Result Diagrams: 10/17/18 04:56 10/17/18 04:56 Troponin/CKMB CK-MB (CK-2) 3.5 ng/mL (0-6.6) 10/13/18 21:23 Troponin I 5.070 ng/mL (< 0.028) H* 10/14/18 04:18 - Assessment/Plan 1. 3V CAD with s/p CABG x 4 on 10/14/18 with BALLARD-LAD, RSVG-PDA, 1st Diag, and OM. - stable; on Coreg 3.125mg BID, ASA 325mg qd, and Lipitor 80mg qd 2. CMY: EF was mild -moderately decreased. On Bblocker and Lasix; Will start ALEKSEY -I with more stable VS. 3. DM: on sliding scale. 4.Morbid obesity. Suggest dietary consult prior to d/c. 5. Chronic pain 6. anxiety 7. dyslipidemia. 8. Tobacco abuse - smoking cessation education given to the pt and family; MAR reviewed Pt. seen and eval. by me. I agree with the A/P by the PHYSICIAN LIAISON. He is doing well s/p CABG. He is ambulating. No cardiac complaints. Chest clear. RRR. gjm Review of Systems - Review of Systems Constitutional: reports: weakness EENTM: reports: no symptoms reported Respiratory: reports: no symptoms reported Cardiac (ROS): reports: no symptoms reported ABD/GI: reports: no symptoms reported : reports: no symptoms reported Musculoskeletal: reports: no symptoms reported
[2018-10-16 11:46] LABS: Actual Bicarbonate (HCO3a) 28.4 mEq/L (22-28); Analyzer IN Cardio OR; Base Excess (BEa) 1.7 mEq/L (-2.0 to +3.0); CO2 Tension 53.3 mmHg (35.0-45.0); Calcium, Ionized 1.06 mmol/L (1.12-1.30); Carboxyhemoglobin (COHb) 0.6 gm% (0.0-3.0); O2 Tension (PaO2) 238.1 mmHg (> 80.0); pH, Arterial 7.34 (7.35-7.45)
[2018-10-16 11:46] LABS: Actual Bicarbonate (HCO3a) 28.5 mEq/L (22-28); Analyzer IN Cardio OR; Base Excess (BEa) 2.8 mEq/L (-2.0 to +3.0); CO2 Tension 48.1 mmHg (35.0-45.0); Calcium, Ionized 1.08 mmol/L (1.12-1.30); Carboxyhemoglobin (COHb) 0.9 gm% (0.0-3.0); Hemoglobin (Hb) 13.8 g/dL (14.0-18.0); O2 Tension (PaO2) 251.1 mmHg (> 80.0); Potassium - ABG Lab 4.74 mmol/L (3.70-5.30); pH, Arterial 7.39 (7.35-7.45)
[2018-10-16 11:47] LABS: Analyzer IN Cardio OR; Base Excess (BEa) -2.6 mEq/L (-2.0 to +3.0); CO2 Tension 50.3 mmHg (35.0-45.0); Calcium, Ionized 0.95 mmol/L (1.12-1.30); Carboxyhemoglobin (COHb) 0.6 gm% (0.0-3.0); Hemoglobin (Hb) 9.8 g/dL (14.0-18.0); O2 Tension (PaO2) 83.8 mmHg (> 80.0); Potassium - ABG Lab 4.38 mmol/L (3.70-5.30)
[2018-10-16 11:47] LABS: Actual Bicarbonate (HCO3a) 27.4 mEq/L (22-28); Analyzer IN Cardio OR; Base Excess (BEa) 1.2 mEq/L (-2.0 to +3.0); CO2 Tension 51.5 mmHg (35.0-45.0); Calcium, Ionized 0.98 mmol/L (1.12-1.30); Carboxyhemoglobin (COHb) 0.1 gm% (0.0-3.0); O2 Tension (PaO2) 364.9 mmHg (> 80.0); Potassium - ABG Lab 4.65 mmol/L (3.70-5.30); pH, Arterial 7.34 (7.35-7.45)
[2018-10-16 11:48] LABS: Actual Bicarbonate (HCO3a) 26.2 mEq/L (22-28); Analyzer IN Cardio OR; Base Excess (BEa) 0.6 mEq/L (-2.0 to +3.0); CO2 Tension 46.4 mmHg (35.0-45.0); Calcium, Ionized 1.01 mmol/L (1.12-1.30); Carboxyhemoglobin (COHb) 0.2 gm% (0.0-3.0); Hemoglobin (Hb) 10.5 g/dL (14.0-18.0); O2 Tension (PaO2) 307.7 mmHg (> 80.0); Potassium - ABG Lab 5.14 mmol/L (3.70-5.30); pH, Arterial 7.37 (7.35-7.45)
[2018-10-16 11:48] LABS: Actual Bicarbonate (HCO3a) 24.2 mEq/L (22-28); Analyzer IN Cardio OR; Base Excess (BEa) -2.4 mEq/L (-2.0 to +3.0); CO2 Tension 49.5 mmHg (35.0-45.0); Calcium, Ionized 1.13 mmol/L (1.12-1.30); Carboxyhemoglobin (COHb) 1.2 gm% (0.0-3.0); Hemoglobin (Hb) 12.2 g/dL (14.0-18.0); Potassium - ABG Lab 4.71 mmol/L (3.70-5.30); pH, Arterial 7.31 (7.35-7.45)
[2018-10-16 11:58] LABS: Puncture Site ALINE
[2018-10-16 11:58] LABS: Puncture Site ALINE
[2018-10-16 11:59] LABS: Puncture Site ALINE
[2018-10-16 11:59] LABS: Puncture Site ALINE
[2018-10-16 12:00] LABS: Puncture Site ALINE
[2018-10-16 12:00] LABS: Puncture Site ALINE
[2018-10-16] MEDS ORDERED: Carvedilol 3.125 MG TAB PO SCH (12:00)
[2018-10-16] MEDS: ALPRAZolam 1 MG TAB PO PRN ×3 (15:26→23:31)
[2018-10-16] MEDS: Tamsulosin HCl 0.4 MG CAP PO SCH (17:33)
--- NOTE | 2018-10-16 20:02 | PDOC.PN ---
- Subjective Encounter Start Date: 10/16/18 Encounter Start Time: 13:30 Doing well overall. A little uncomfortable in the bed. Walked a little. Passing gas. - Objective Vital Signs & Weight: Vital Signs (12 hours) Temp Pulse Pulse Pulse Resp BP BP 10/16/18 18:44 103 H 18 10/16/18 16:40 97.9 F 107 H 20 10/16/18 14:06 111 H 100 126/72 120/73 10/16/18 13:39 102 H 20 10/16/18 11:33 98.9 F 10/16/18 08:59 105 H 118 H 153/113 H 126/81 10/16/18 08:08 115 H 20 BP Pulse Ox Pulse Ox Pulse Ox 10/16/18 18:44 94 L 10/16/18 16:40 169/96 H 10/16/18 14:06 93 L 98 10/16/18 13:39 97 10/16/18 11:33 10/16/18 08:59 97 90 L 10/16/18 08:08 94 L Weight Admit Weight 4.96 oz Weight 304 lb 3.806 oz Most Recent Monitor Data Heart Rate from ECG 104 NIBP 97/71 NIBP BP-Mean 79 Respiration from ECG 21 SpO2 97 I&O: 10/15/18 10/16/18 10/17/18 06:59 06:59 06:59 Intake Total 971 1510 720 Output Total 1348 3485 1070 [facility] -377 -1975 -350 Result Diagrams: 10/16/18 04:40 10/16/18 04:40 Additional Labs: Accuchecks 10/16/18 10/16/18 10/15/18 11:48 06:10 22:53 POC Glucose 283 H 260 H 235 H Phys Exam - Physical Examination Constitutional: NAD Obese Respiratory: no wheezing, no rales, no rhonchi, clear to auscultation bilateral Cardiovascular: RRR, no significant murmur, no rub Gastrointestinal: soft, non-tender, no distention, positive bowel sounds Musculoskeletal: no edema Psychiatric: normal affect, A&O x 3 Dx/Plan (1) CAD (coronary artery disease) Code(s): I25.10 - ATHSCL HEART DISEASE OF [place] CORONARY ARTERY W/O ANG PCTRS Status: Acute (2) S/P CABG x 4 Status: Acute Comment: Per CV surg. Doing well post-op (3) STEMI (ST elevation myocardial infarction) Status: Acute Comment: Post cath, CABG. Aspirin, statin, beta leandro. (4) Diabetes mellitus Code(s): E11.9 - TYPE 2 DIABETES MELLITUS WITHOUT COMPLICATIONS Status: Acute Comment: SSI, POC glucose. (5) HTN (hypertension) Code(s): I10 - ESSENTIAL (PRIMARY) HYPERTENSION Status: Acute Comment: Continue Beta leandro. (6) COPD (chronic obstructive pulmonary disease) Status: Acute Comment: Well compensated. Continue DUOnebs (7) HLD (hyperlipidemia) Code(s): E78.5 - HYPERLIPIDEMIA, UNSPECIFIED Status: Acute Comment: Lipitor (8) Hypothyroidism Code(s): E03.9 - HYPOTHYROIDISM, UNSPECIFIED Status: Acute Comment: Continue Levothyroxine - Plan * As above.
[2018-10-16] MEDS: Atorvastatin Calcium 40 MG TAB PO SCH (21:00)
--- NOTE | 2018-10-16 22:43 | EKG ---
Test Reason : Blood Pressure : / mmHG Vent. Rate : 083 BPM Atrial Rate : 083 BPM P-R Int : 162 ms QRS Dur : 082 ms QT Int : 384 ms P-R-T Axes : 038 114 168 degrees QTc Int : 451 ms Normal sinus rhythm Left posterior fascicular block Abnormal ECG When compared with ECG of 13-OCT-2018 21:11, (Unconfirmed) Significant changes have occurred Confirmed by Adriana CURRY ([id number]) on 10/16/2018 10:42:51 PM Referred By: LESLEY Confirmed By:Adriana CURRY
[2018-10-17] MEDS: Ondansetron PF 4 MG/2 ML Vial IVP PRN (05:14)
[2018-10-17 05:23] LABS: #Eosinphils 0.1 thou/uL (0.0-0.7); #Lymphocytes 2.1 thou/uL (1.20-3.40); #Monocytes 1.4 thou/uL (0.11-0.59); #Neutrophils 9.2 thou/uL (1.40-6.50); %Basophils 0.2 % (0.0-1.0); %Eosinophils 0.5 % (0.0-10.0); %Lymphocytes 16.2 % (21.0-51.0); %Monocytes 11.2 % (0.0-10.0); %Neutrophils 71.9 % (42.0-75.0); Hemoglobin 9.4 g/dL (14.0-18.0); Mean Corpuscular HGB CONC 31.5 g/dL (32.0-36.0); Mean Corpuscular Hemoglobin 28.7 pg (27.0-31.0); Mean Corpuscular Volume 91.1 fL (78.0-98.0); Mean Platelet Volume 7.9 fL (7.4-10.4); Platelet Count 251 thou/uL (130-400); RBC Distribution Width 13.4 % (11.5-14.5); Red Blood Cell (RBC) Count 3.29 mill/uL (4.70-6.10); White Blood Cell (WBC) Count 12.8 thou/uL (4.8-10.8)
[2018-10-17] MEDS: Levothyroxine 150 MCG TAB PO SCH (05:23)
[2018-10-17 05:44] LABS: Anion Gap 11 mmol/L (10-20); BUN (Urea Nitrogen) 19 mg/dL (8.4-25.7); Calc. Creatinine Clearance 148 mL/min (70-130); Calcium 8.9 mg/dL (7.8-10.44); Carbon Dioxide 34 mmol/L (23-31); Chloride 95 mmol/L (98-107); Estimated GFR-MDRD 78; Glucose 229 mg/dL (80-115); Potassium 4.5 mmol/L (3.5-5.1); Sodium 135 mmol/L (136-145)
[2018-10-17] MEDS ORDERED: Carvedilol 3.125 MG TAB PO SCH (06:14)
[2018-10-17] MEDS: Metolazone 5 MG TAB PO SCH (08:16)
[2018-10-17] MEDS: HumaLOG 300 UNITS/3 ML VIAL SC PRN ×2 (08:16→17:57)
[2018-10-17] MEDS: Potassium Chloride 20 MEQ TAB PO SCH ×2 (08:16→17:59)
--- NOTE | 2018-10-17 08:38 | RAD ---
XR Chest 1 View Portable HISTORY: Post CABG COMPARISON: Previous day FINDINGS: The heart size is enlarged. There is pulmonary vascular congestion. No pneumothoraces or la rge effusions are identified. Left-sided chest tube has been removed in the interim.
[2018-10-17 08:46] LABS: Hemoglobin A1c 6.8 % (4.0-6.0)
[2018-10-17] MEDS ORDERED: Carvedilol 6.25 MG TAB PO SCH (09:00)
--- NOTE | 2018-10-17 09:32 | PRG ---
DATE OF SERVICE: 10/17/2018 SUBJECTIVE: This morning, he is less short of breath, less cough, less wheezing. OBJECTIVE: VITAL SIGNS: His saturations are 96% on 4 L, respirations 20, pulse 107, temperature 98, and blood pressure 140/80. CHEST: Decreased breath sounds. No wheezing. CARDIAC: Normal S1, S2. No gallops. ABDOMEN: No masses. LABORATORY STUDIES: Lytes are normal. White count [id number], H and H is 9 and 30. ASSESSMENT: Status post coronary artery bypass graft, morbid obesity, sleep apnea, diabetes, congestive heart failure, and unknown interstitial lung disease. PLAN: Continue nocturnal BiPAP. PT supportive care. Job ID: [id number]
[2018-10-17] MEDS: Nicotine 14 MG PATCH TD SCH (10:26)
[2018-10-17] MEDS: Furosemide 40 MG TAB PO SCH ×2 (10:27→20:12)
[2018-10-17] MEDS: Aspirin 325 mg Enteric Coated Tablet PO SCH (10:27)
[2018-10-17] MEDS: Docusate 100 MG CAP PO SCH ×2 (10:27→20:12)
[2018-10-17] MEDS: HYDROcodone/Acetaminophen 5/325 mg Tablet PO PRN (12:31)
--- NOTE | 2018-10-17 14:23 | PDOC.CTH ---
Cardiology Progress Note - Subjective The pt seen and examined. No overnight events. No cardiac complaints. - Objective Vital Signs Temp Pulse Resp BP BP Pulse Ox 10/17/18 12:00 98.4 F 103 H 18 137/63 92 L 10/17/18 10:27 109/66 10/17/18 08:00 98.3 F 107 H 20 144/80 H 96 10/17/18 07:17 105 H 16 95 10/17/18 04:09 104 H 17 99 10/17/18 04:00 98.0 F 107 H 16 131/78 95 Admit Weight 4.96 oz Weight 10.797 oz 10/16/18 10/17/18 10/18/18 06:59 06:59 06:59 Intake Total 1510 1520 Output Total 3485 3910 Balance -1974 -2389 - Physical Examination General/Neuro: alert & oriented x3 Neck: no JVD present Lungs: other: (diminished at bases) Heart: RRR (tachycardia) Abdomen: soft Extremities: other: (No edema) - Telemetry Telemetry Rhythm: SR/ST - Labs Result Diagrams: 10/18/18 05:53 10/18/18 05:53 Troponin/CKMB CK-MB (CK-2) 3.5 ng/mL (0-6.6) 10/13/18 21:23 Troponin I 5.070 ng/mL (< 0.028) H* 10/14/18 04:18 - Assessment/Plan 1. 3V CAD with s/p CABG x 4 on 10/14/18 with BALLARD-LAD, RSVG-PDA, 1st Diag, and OM. - stable; on Coreg 6.25mg TID, ASA 325mg qd, and Lipitor 80mg qd 2. CMY: EF was mild -moderately decreased. On Bblocker and Lasix; Will start ALEKSEY -I with more stable VS. 3. DM: on sliding scale. 4.Morbid obesity. Suggest dietary consult prior to d/c. 5. Chronic pain 6. anxiety 7. dyslipidemia. 8. Tobacco abuse - smoking cessation education given to the pt and family; 9. Tachycardia - increase Coreg 6.25mg from BID to TID from this afternoon. MAR reviewed Pt. seen and eval. by me. I agree with the A/P by the LEATHER PRODUCTION MACHINE OPERATOR. He is doing better than expected post CABG. He is ambulating. No cardiac complaints. Chest clear. RRR., tachycardia. Review of Systems - Review of Systems Constitutional: reports: no symptoms reported EENTM: reports: no symptoms reported Respiratory: reports: no symptoms reported Cardiac (ROS): reports: no symptoms reported ABD/GI: reports: no symptoms reported : reports: no symptoms reported
--- NOTE | 2018-10-17 15:39 | PDOC.PN ---
- Subjective Encounter Start Date: 10/17/18 Encounter Start Time: 15:28 Subjective: Admitted with STEMI. cardiac cath showed severe multivessel disease. -: S/p CABG on 10/14/2018. -: Feeling better. Chest tube andcatheter removed earlier today - Objective Vital Signs & Weight: Vital Signs (12 hours) Temp Pulse Pulse Pulse Resp BP BP 10/17/18 14:23 101 H 18 10/17/18 13:15 109 H 96 144/81 H 10/17/18 12:00 98.4 F 103 H 18 10/17/18 10:27 109/66 10/17/18 08:00 98.3 F 107 H 20 10/17/18 07:17 105 H 16 10/17/18 04:09 104 H 17 10/17/18 04:00 98.0 F 107 H 16 BP BP Pulse Ox Pulse Ox Pulse Ox 10/17/18 14:23 96 10/17/18 13:15 128/62 94 L 98 10/17/18 12:00 137/63 92 L 10/17/18 10:27 10/17/18 08:00 144/80 H 96 10/17/18 07:17 95 10/17/18 04:09 99 10/17/18 04:00 131/78 95 Weight Admit Weight 4.96 oz Weight 10.797 oz Most Recent Monitor Data Heart Rate from ECG 104 NIBP 97/71 NIBP BP-Mean 79 Respiration from ECG 21 SpO2 97 I&O: 10/16/18 10/17/18 10/18/18 06:59 06:59 06:59 Intake Total 1510 1520 Output Total 3485 3910 Balance -1974 Result Diagrams: 10/17/18 04:56 10/17/18 04:56 Additional Labs: Accuchecks 10/17/18 10/17/18 10/16/18 10:55 05:56 20:58 POC Glucose 244 H 238 H 404 H Phys Exam - Physical Examination Constitutional: NAD morbidly obese HEENT: PERRLA, moist MMs Neck: supple fair air entry bilaterally, decreased at the bases Cardiovascular: RRR Gastrointestinal: soft, non-tender, no distention, positive bowel sounds morbidly obese moderate bilateral leg edema Neurological: non-focal, moves all 4 limbs ambulant Psychiatric: A&O x 3 Dx/Plan (1) S/P CABG x 4 Status: Acute Comment: Per CV surg. Doing well post-op (2) CAD (coronary artery disease) Code(s): I25.10 - ATHSCL HEART DISEASE OF [place] CORONARY ARTERY W/O ANG PCTRS Status: Acute (3) STEMI (ST elevation myocardial infarction) Status: Acute Comment: Post cath, CABG. Aspirin, statin, beta leandro. (4) Tobacco abuse disorder Code(s): Z72.0 - TOBACCO USE Status: Acute (5) Morbid obesity Code(s): E66.01 - MORBID (SEVERE) OBESITY DUE TO EXCESS CALORIES Status: Acute (6) Obesity hypoventilation syndrome Code(s): E66.2 - MORBID (SEVERE) OBESITY WITH ALVEOLAR HYPOVENTILATION Status : Acute (7) COPD (chronic obstructive pulmonary disease) Status: Acute Comment: Well compensated. Continue DUOnebs (8) Diabetes mellitus Code(s): E11.9 - TYPE 2 DIABETES MELLITUS WITHOUT COMPLICATIONS Status: Acute Comment: SSI, POC glucose. (9) HLD (hyperlipidemia) Code(s): E78.5 - HYPERLIPIDEMIA, UNSPECIFIED Status: Acute Comment: Lipitor (10) HTN (hypertension) Code(s): I10 - ESSENTIAL (PRIMARY) HYPERTENSION Status: Acute Comment: Continue Beta leandro. (11) Hypothyroidism Code(s): E03.9 - HYPOTHYROIDISM, UNSPECIFIED Status: Acute Comment: Continue Levothyroxine (12) BPH (benign prostatic hyperplasia) Code(s): N40.0 - BENIGN PROSTATIC HYPERPLASIA WITHOUT LOWER URINRY TRACT SYMP Status: Acute (13) Fluid overload Code(s): E87.70 - FLUID OVERLOAD, UNSPECIFIED Status: Acute - Plan Restart lantus and continue sliding scale insulin -: Continue diuretics and monitor renal function, I/O, and electrolytes -: Continue other treatments. -: PT/OT to continue. * .
[2018-10-17] MEDS: Carvedilol 6.25 MG TAB PO SCH ×2 (15:45→20:12)
[2018-10-17] MEDS ORDERED: Insulin Glargine 15 UNITS in Pre-Filled Syringe 1 EACH SC SCH (16:00)
[2018-10-17] MEDS: Tamsulosin HCl 0.4 MG CAP PO SCH (17:59)
[2018-10-17] MEDS: Atorvastatin Calcium 40 MG TAB PO SCH (20:11)
[2018-10-17] MEDS ORDERED: ALPRAZolam 1 MG TAB PO PRN (22:40)
[2018-10-18] MEDS: HumaLOG 300 UNITS/3 ML VIAL SC PRN ×5 (00:04→20:37)
[2018-10-18] MEDS: Levothyroxine 150 MCG TAB PO SCH (05:18)
[2018-10-18 07:07] LABS: #Eosinphils 0.2 thou/uL (0.0-0.7); #Lymphocytes 2.2 thou/uL (1.20-3.40); #Monocytes 1.3 thou/uL (0.11-0.59); #Neutrophils 9.2 thou/uL (1.40-6.50); %Basophils 0.4 % (0.0-1.0); %Eosinophils 1.6 % (0.0-10.0); %Lymphocytes 16.7 % (21.0-51.0); %Neutrophils 71.3 % (42.0-75.0); Hemoglobin 9.7 g/dL (14.0-18.0); Mean Corpuscular HGB CONC 31.3 g/dL (32.0-36.0); Mean Corpuscular Hemoglobin 27.9 pg (27.0-31.0); Mean Corpuscular Volume 89.3 fL (78.0-98.0); Platelet Count 305 thou/uL (130-400); RBC Distribution Width 13.2 % (11.5-14.5); Red Blood Cell (RBC) Count 3.46 mill/uL (4.70-6.10); White Blood Cell (WBC) Count 12.9 thou/uL (4.8-10.8)
[2018-10-18 07:29] LABS: Anion Gap 8 mmol/L (10-20); BUN (Urea Nitrogen) 22 mg/dL (8.4-25.7); Calc. Creatinine Clearance 143 mL/min (70-130); Calcium 9.2 mg/dL (7.8-10.44); Carbon Dioxide 37 mmol/L (23-31); Chloride 92 mmol/L (98-107); Estimated GFR-MDRD 77; Glucose 239 mg/dL (80-115); Magnesium 1.9 mg/dL (1.6-2.6); Potassium 4.4 mmol/L (3.5-5.1); Sodium 133 mmol/L (136-145)
--- NOTE | 2018-10-18 07:36 | RAD ---
EXAM: Single view of the chest HISTORY: Status post CABG COMPARISON: 10/17/2018 FINDINGS: Single view of the chest shows an enlarged but stable cardiomediastinal silhouette. The pat ient is status post CABG. There is no evidence of consolidation, mass, or pleural effusion. The bones are unremarkable. IMPRESSION: Cardiomegaly without evidence of acute cardiopulmonary disease
[2018-10-18] MEDS ORDERED: Ondansetron PF 4 MG/2 ML Vial IVP PRN (07:37)
[2018-10-18] MEDS ORDERED: Acetaminophen 325 MG TAB PO PRN (07:37)
[2018-10-18] MEDS ORDERED: HYDROcodone/Acetaminophen 5/325 mg Tablet PO PRN ×2 (07:37)
[2018-10-18] MEDS ORDERED: Dextrose 50% Abboject 50 ML SYRINGE SLOW IVP PRN (07:40)
[2018-10-18] MEDS ORDERED: Dextrose 5% in Water 1,000 ML IV PRN (07:40)
[2018-10-18] MEDS ORDERED: Insulin Regular 300 UNITS/3 ML VIAL SC PRN (07:40)
[2018-10-18] MEDS ORDERED: Sodium Chloride 0.9% 1,000 ML IV SCH (07:45)
[2018-10-18] MEDS: Potassium Chloride 20 MEQ TAB PO SCH ×2 (08:09→17:56)
[2018-10-18] MEDS: glipiZIDE 10 MG TAB PO SCH ×3 (08:24→18:03)
[2018-10-18] MEDS: Docusate 100 MG CAP PO SCH ×2 (08:25→20:36)
[2018-10-18] MEDS: Carvedilol 6.25 MG TAB PO SCH ×3 (08:25→20:36)
[2018-10-18] MEDS ORDERED: Insulin Glargine 20 UNITS in Pre-Filled Syringe 1 EACH SC SCH (09:00)
[2018-10-18] MEDS ORDERED: Metoprolol Tartrate 25 MG TAB PO SCH (09:00)
[2018-10-18] MEDS ORDERED: Non-Formulary Item 1 EACH (Gabapentin [Gabapentin] 600 MG) PO SCH (09:00)
[2018-10-18] MEDS ORDERED: Non-Formulary Item 1 EACH (Ranitidine Hcl [Ranitidine Hcl] 150 MG) PO SCH (09:00)
[2018-10-18] MEDS ORDERED: Aspirin 81 mg Enteric Coated Tablet PO SCH (09:00)
--- NOTE | 2018-10-18 09:00 | PDOC.CTH ---
Cardiology Progress Note - Subjective The pt seen and examined. No overnight events. No cardiac complaints. - Objective Vital Signs Temp Pulse Resp BP BP Pulse Ox 10/18/18 08:30 97.1 F L 88 18 121/57 L 93 L 10/18/18 08:25 121/57 L 10/18/18 07:37 98 10/18/18 07:35 87 15 98 10/18/18 04:00 98.7 F 93 20 113/57 L 99 10/18/18 00:10 86 20 98 10/17/18 23:58 88 16 94 L Admit Weight 4.96 oz Weight 297 lb 9.6 oz 10/17/18 10/18/18 10/19/18 06:59 06:59 06:59 Intake Total 1520 1980 Output Total 3910 1875 Balance -2390 105 - Physical Examination General/Neuro: alert & oriented x3 Neck: no JVD present Lungs: CTA (diminished at bases) Heart: RRR Abdomen: soft Extremities: other: (generalized edema) - Telemetry Telemetry Rhythm: SR - Labs Result Diagrams: 10/18/18 05:53 10/18/18 05:53 Troponin/CKMB CK-MB (CK-2) 3.5 ng/mL (0-6.6) 10/13/18 21:23 Troponin I 5.070 ng/mL (< 0.028) H* 10/14/18 04:18 - Assessment/Plan 1. 3V CAD with s/p CABG x 4 on 10/14/18 with BALLARD-LAD, RSVG-PDA, 1st Diag, and OM. - stable; on Coreg 6.25mg TID, ASA 325mg qd, and Lipitor 80mg qd 2. CMY: EF was mild -moderately decreased. On Bblocker and Lasix; Will start Lisinopirl 2.5mg qd from today. 3. DM: on sliding scale. 4.Morbid obesity. Suggest dietary consult prior to d/c. 5. Chronic pain 6. anxiety 7. dyslipidemia - On statin 8. Tobacco abuse - smoking cessation education given to the pt and family; 9. Tachycardia - Stable with Coreg 6.25mg TID. MAR reviewed Pt. seen and eval. by me. I agree with the A/P by the CONDENSER CLEANER.Chest clear, RRR. no significant edema. Review of Systems - Review of Systems Constitutional: reports: no symptoms reported EENTM: reports: no symptoms reported Respiratory: reports: no symptoms reported Cardiac (ROS): reports: no symptoms reported ABD/GI: reports: no symptoms reported : reports: no symptoms reported Musculoskeletal: reports: no symptoms reported
--- NOTE | 2018-10-18 10:34 | PRG ---
DATE OF SERVICE: 10/18/2018 SUBJECTIVE: This morning, he is better, he is less short of breath, less cough. OBJECTIVE: VITAL SIGNS: Sats are 93% on room air, pulse 80, blood pressure 120\76_ respiratory rate 18. CHEST: Decreased breath sounds. No wheezing. CARDIAC: Normal S1, S2. No gallops. IMAGING STUDIES: His chest x-ray shows much improvement in his interstitial markings probably suggestive of_ CHF. IMPRESSION: Congestive heart failure, coronary artery bypass graft, cardiomyopathy, obesity. PLAN: Continue supportive care, PT. We will follow. Job ID: [id number] [facility]
[2018-10-18] MEDS: Lisinopril 2.5 MG TAB PO SCH (11:26)
[2018-10-18] MEDS: Famotidine 20 MG TAB PO SCH ×2 (11:28→20:36)
[2018-10-18] MEDS: Gabapentin 300 MG CAP PO SCH ×3 (11:28→20:37)
[2018-10-18] MEDS: Furosemide 40 MG TAB PO SCH ×2 (11:29→20:37)
[2018-10-18] MEDS ORDERED: Insulin Glargine 10 UNITS in Pre-Filled Syringe 1 EACH SC SCH (12:15)
--- NOTE | 2018-10-18 15:14 | PDOC.PN ---
- Subjective Encounter Start Date: 10/18/18 Encounter Start Time: 15:13 Subjective: S/p CABG. -: No new problem -: Ambulating with PT. - Objective Vital Signs & Weight: Vital Signs (12 hours) Temp Pulse Pulse Pulse Resp BP BP 10/18/18 14:13 88 16 10/18/18 13:41 96 95 134/83 10/18/18 11:35 97.9 F 96 18 10/18/18 11:26 88 10/18/18 09:22 114 H 96 199/96 H 10/18/18 08:30 97.1 F L 88 18 10/18/18 08:25 121/57 L 10/18/18 08:00 10/18/18 07:37 10/18/18 07:35 87 15 10/18/18 04:00 98.7 F 93 20 BP BP Pulse Ox Pulse Ox Pulse Ox 10/18/18 14:13 10/18/18 13:41 127/72 97 94 L 10/18/18 11:35 133/63 96 10/18/18 11:26 10/18/18 09:22 144/75 H 95 94 L 10/18/18 08:30 121/57 L 93 L 10/18/18 08:25 10/18/18 08:00 93 L 10/18/18 07:37 98 10/18/18 07:35 98 10/18/18 04:00 113/57 L 99 Weight Admit Weight 4.96 oz Weight 297 lb 9.6 oz Most Recent Monitor Data Heart Rate from ECG 104 NIBP 97/71 NIBP BP-Mean 79 Respiration from ECG 21 SpO2 97 I&O: 10/17/18 10/18/18 10/19/18 06:59 06:59 06:59 Intake Total 1520 1980 Output Total 3910 1875 Balance -2390 105 Result Diagrams: 10/18/18 05:53 10/18/18 05:53 Additional Labs: Accuchecks 10/18/18 10/18/18 10/17/18 11:20 05:44 21:32 POC Glucose 229 H 263 H 253 H 10/17/18 17:25 POC Glucose 339 H Phys Exam - Physical Examination Constitutional: NAD morbidly obese HEENT: PERRLA, moist MMs Neck: supple fair air entry, decreased at the bases Cardiovascular: RRR Gastrointestinal: soft, non-tender, no distention, positive bowel sounds morbidly obese moderate bilateral leg edema Neurological: non-focal, moves all 4 limbs Psychiatric: A&O x 3 Dx/Plan (1) S/P CABG x 4 Status: Acute Comment: Per CV surg. Doing well post-op (2) CAD (coronary artery disease) Code(s): I25.10 - ATHSCL HEART DISEASE OF [place] CORONARY ARTERY W/O ANG PCTRS Status: Acute (3) STEMI (ST elevation myocardial infarction) Status: Acute Comment: Post cath, CABG. Aspirin, statin, beta leandro. (4) Tobacco abuse disorder Code(s): Z72.0 - TOBACCO USE Status: Acute (5) Morbid obesity Code(s): E66.01 - MORBID (SEVERE) OBESITY DUE TO EXCESS CALORIES Status: Acute (6) Obesity hypoventilation syndrome Code(s): E66.2 - MORBID (SEVERE) OBESITY WITH ALVEOLAR HYPOVENTILATION Status : Acute (7) COPD (chronic obstructive pulmonary disease) Status: Acute Comment: Well compensated. Continue DUOnebs (8) Diabetes mellitus Code(s): E11.9 - TYPE 2 DIABETES MELLITUS WITHOUT COMPLICATIONS Status: Acute Comment: SSI, POC glucose. (9) HLD (hyperlipidemia) Code(s): E78.5 - HYPERLIPIDEMIA, UNSPECIFIED Status: Acute Comment: Lipitor (10) HTN (hypertension) Code(s): I10 - ESSENTIAL (PRIMARY) HYPERTENSION Status: Acute Comment: Continue Beta leandro. (11) Hypothyroidism Code(s): E03.9 - HYPOTHYROIDISM, UNSPECIFIED Status: Acute Comment: Continue Levothyroxine (12) BPH (benign prostatic hyperplasia) Code(s): N40.0 - BENIGN PROSTATIC HYPERPLASIA WITHOUT LOWER URINRY TRACT SYMP Status: Acute (13) Fluid overload Code(s): E87.70 - FLUID OVERLOAD, UNSPECIFIED Status: Acute (14) Acute blood loss anemia Code(s): D62 - ACUTE POSTHEMORRHAGIC ANEMIA Status: Acute Comment: Related to surgery - Plan Continue diuretics and antihypertensives. -: Continue statin, ASA and BB -: Increase lantus to 30 units. patient cannot tolerated metformin. -: Continue sliding scale insulin. -: Anticipated discharge to acute rehab. * .
[2018-10-18] MEDS: Nicotine 14 MG PATCH TD SCH (16:17)
[2018-10-18] MEDS: Tamsulosin HCl 0.4 MG CAP PO SCH (17:56)
[2018-10-18] MEDS ORDERED: Insulin Glargine 10 UNITS in Pre-Filled Syringe SC SCH (18:00)
[2018-10-18] MEDS: Atorvastatin Calcium 40 MG TAB PO SCH (20:36)
[2018-10-19] MEDS: Levothyroxine 150 MCG TAB PO SCH (05:39)
[2018-10-19 05:56] LABS: #Eosinphils 0.3 thou/uL (0.0-0.7); #Lymphocytes 2.6 thou/uL (1.20-3.40); #Monocytes 1.6 thou/uL (0.11-0.59); #Neutrophils 10.1 thou/uL (1.40-6.50); %Basophils 0.2 % (0.0-1.0); %Eosinophils 1.9 % (0.0-10.0); %Lymphocytes 17.6 % (21.0-51.0); %Monocytes 10.6 % (0.0-10.0); %Neutrophils 69.6 % (42.0-75.0); Hemoglobin 10.2 g/dL (14.0-18.0); Mean Corpuscular HGB CONC 31.2 g/dL (32.0-36.0); Mean Corpuscular Hemoglobin 27.9 pg (27.0-31.0); Mean Corpuscular Volume 89.4 fL (78.0-98.0); Mean Platelet Volume 7.7 fL (7.4-10.4); Platelet Count 358 thou/uL (130-400); RBC Distribution Width 13.5 % (11.5-14.5); Red Blood Cell (RBC) Count 3.66 mill/uL (4.70-6.10); White Blood Cell (WBC) Count 14.5 thou/uL (4.8-10.8)
[2018-10-19 06:07] LABS: Anion Gap 13 mmol/L (10-20); BUN (Urea Nitrogen) 23 mg/dL (8.4-25.7); Calc. Creatinine Clearance 150 mL/min (70-130); Calcium 9.7 mg/dL (7.8-10.44); Carbon Dioxide 33 mmol/L (23-31); Chloride 91 mmol/L (98-107); Estimated GFR-MDRD 82; Glucose 201 mg/dL (80-115); Potassium 4.3 mmol/L (3.5-5.1); Sodium 133 mmol/L (136-145)
[2018-10-19] MEDS ORDERED: Insulin Glargine 30 UNITS in Pre-Filled Syringe 1 EACH SC SCH (09:00)
[2018-10-19] MEDS ORDERED: Aspirin 325 MG TAB PO SCH (09:00)
--- NOTE | 2018-10-19 09:47 | PRG ---
DATE OF SERVICE: 10/19/2018 SUBJECTIVE: This morning, he is doing better. OBJECTIVE: VITAL SIGNS: Low-flow O2 saturations are 94% on 2 L,pulse 74 blood pressure 112/57. HEENT: He is having some epistaxis, probably his nose is dry. CHEST: No wheezing or crackles. CARDIAC: Normal S1 and S2. No gallops. ABDOMEN: No masses. IMPRESSION: Chronic obstructive pulmonary disease, sleep apnea, status post coronary artery bypass graft, congestive heart failure, epistaxis, and severe deconditioning. PLAN: Nasal spray has been ordered to his present regime. Continue PT supportive care. We will follow. Job ID: [id number] [facility]
[2018-10-19] MEDS: Potassium Chloride 20 MEQ TAB PO SCH ×2 (09:50→16:23)
[2018-10-19] MEDS: Furosemide 40 MG TAB PO SCH ×2 (09:51→16:24)
[2018-10-19] MEDS: glipiZIDE 10 MG TAB PO SCH (09:51)
[2018-10-19] MEDS: Docusate 100 MG CAP PO SCH (09:51)
[2018-10-19] MEDS: Carvedilol 6.25 MG TAB PO SCH ×2 (09:51→16:24)
[2018-10-19] MEDS: Famotidine 20 MG TAB PO SCH (09:51)
[2018-10-19] MEDS: Gabapentin 300 MG CAP PO SCH ×2 (09:52→16:29)
[2018-10-19] MEDS: Nicotine 14 MG PATCH TD SCH (09:52)
--- NOTE | 2018-10-19 10:54 | PDOC.CTH ---
Cardiology Progress Note - Subjective The pt seen and examined. No overnight events. No cardiac complaints. - Objective Vital Signs Temp Pulse Resp BP BP BP Pulse Ox 10/19/18 09:51 128/61 10/19/18 09:15 98.2 F 80 20 128/61 94 L 10/19/18 08:47 20 94 L 10/19/18 08:45 20 88 L 10/19/18 08:01 95 10/19/18 07:59 83 15 95 10/19/18 03:15 98 F 89 18 120/57 L 92 L 10/19/18 01:35 89 16 Admit Weight 4.96 oz Weight 294 lb 12.8 oz 10/18/18 10/19/18 10/20/18 06:59 06:59 06:59 Intake Total 1979 1760 Output Total 1875 1300 Balance 105 460 - Physical Examination General/Neuro: alert & oriented x3 Neck: no JVD present Lungs: CTA (mildly diminished at bases) Heart: RRR Abdomen: soft Extremities: other: (No edema) - Telemetry Telemetry Rhythm: SR - Labs Result Diagrams: 10/19/18 05:18 10/19/18 05:18 Troponin/CKMB CK-MB (CK-2) 3.5 ng/mL (0-6.6) 10/13/18 21:23 Troponin I 5.070 ng/mL (< 0.028) H* 10/14/18 04:18 - Assessment/Plan 1. 3V CAD with s/p CABG x 4 on 10/14/18 with BALLARD-LAD, RSVG-PDA, 1st Diag, and OM. - stable; on Coreg 6.25mg TID, ASA 325mg qd, and Lipitor 80mg qd 2. CMY: EF was mild -moderately decreased. On Bblocker, Lasix, and Lisinopirl 2.5mg qd. 3. DM: on sliding scale. 4.Morbid obesity. Suggest dietary consult prior to d/c. 5. Chronic pain 6. anxiety 7. dyslipidemia - On statin 8. Tobacco abuse - smoking cessation education given to the pt and family; 9. Tachycardia - Stable with Coreg 6.25mg TID. MAR reviewed Pt. seen and eval. by me. I agree with the A/P by the CNC MACHINE PROGRAMMER.Chest clear, RRR. no significant edema.Pt. is ready for d/c. i will see him back in the office in 4 weeks. Review of Systems - Review of Systems Constitutional: reports: weakness EENTM: reports: no symptoms reported Respiratory: reports: no symptoms reported Cardiac (ROS): reports: no symptoms reported ABD/GI: reports: no symptoms reported : reports: no symptoms reported Musculoskeletal: reports: no symptoms reported
[2018-10-19 13:00] VITALS: TEMP 99.3
[2018-10-19] MEDS: HumaLOG 300 UNITS/3 ML VIAL SC PRN ×2 (13:09→18:02)
[2018-10-19] MEDS: Lisinopril 2.5 MG TAB PO SCH (13:11)
[2018-10-19] MEDS ORDERED: Sodium Chloride 0.65% Nasal 44 ML BOT EA NARE SCH (15:00)
[2018-10-19 16:41] VITALS: BP 127/64
[2018-10-19] MEDS: Tamsulosin HCl 0.4 MG CAP PO SCH (18:00)
--- NOTE | 2018-10-20 08:16 | PQF ---
[facility] Outpatient Coding Specialist Crystal Reports Winform ViewerMIKALA DE LUNA G JEAN MD [phone] [facility] [place] [phone] CLINICAL DOCUMENTATION CLARIFICATION FORM: POST DISCHARGE Addendum to original discharge summary date: ____ Late entry note date: __ Please exercise your independent, professional judgment in responding to the clarification form. Clinical indicators are provided on the bottom of this form for your review Please check appropriate box(s): HEART FAILURE: A. TYPE: [ X ] Systolic / HFrEF [ ] Diastolic / HFpEF [ ] Combined Systolic / Diastolic B. ACUITY [ ] Acute [ ] Acute on Chronic [ ] Chronic [ ] Other diagnosis [X ] Unable to determine In addition, please specify: Present on Admission (POA): [ ] Yes [ ] No [ X] Unable to determine For continuity of documentation, please document condition throughout progress notes and discharge summary. Thank You. CLINICAL INDICATORS - SIGNS / SYMPTOMS / LABS EF was mildly to moderately decreased- pn 4, 10/17, 10/18 Fluid Overload- pn 10/17, 10/18 CHF- Consult Dr. Soto, pn 10/16, 10/17, 10/18, 10/19 CXR results- consistant with chf- pn 10/16, 10/17, 10/18 Arrhythmia--tachycardia- pn 10/18 RISKS: CAD- cath procedure, all progress notes Hypertension- h&p, all progress notes TREATMENTS: IV diuretics- pn 10/17 [employer] Outpatient Coding Specialist Crystal Reports Winform Viewer (This form is maintained as a part of the permanent medical record) 2014 [employer] All Rights Reserved [email or web address] [phone] MTDD
--- NOTE | 2018-10-22 02:23 | DIS ---
DATE OF ADMISSION: 10/13/2018 DATE OF DISCHARGE: 10/19/2018 DISCHARGE DIAGNOSES: 1. Coronary artery disease, status post four-vessel bypass graft with left internal mammary artery to the left anterior descending, or saphenous vein graft to posterior descending artery and first diagonal and obtuse marginal. 2. Cardiomyopathy. 3. Diabetes mellitus. 4. Tobacco abuse. 5. Tachycardia. 6. Morbid obesity. 7. Dyslipidemia. 8. Chronic pain syndrome. 9. Anxiety. 10. Chronic obstructive pulmonary disease. HISTORY OF PRESENT ILLNESS: The patient is a 63-year-old male who presented with increasing chest pain radiating to his left shoulder and EKG changes compatible with an inferior KS. The patient was seen by Dr. Bullock who took the patient to the dental laboratory technology teacher revealing EF of 40%-45%, left main disease and three-vessel coronary disease with 90%-100% stenosis in all three vessels. The patient was subsequently seen in evaluation by Dr. Schaefer with CV Surgery. The patient subsequently underwent surgery on 10/14/2018. The patient did relatively well postoperatively. He was placed in the ICU, was followed by the hospitalist team in the Pulmonary Critical Care and he was subsequently successfully weaned off the ventilator and extubated. He had his chest drains removed and ultimately was able to transfer to the medical floor. There, the patient continued to progress. He was evaluated and accepted into the inpatient rehab facility. PHYSICAL EXAMINATION: VITAL SIGNS: On the day of discharge, temperature is a 99.3, pulse 88, respirations 18, O2 saturation 91% on room air, BP was 127/58. GENERAL APPEARANCE: Age-appropriate male, obese, no distress. Awake, alert, oriented, pleasant, cooperative. HEART: Regular rate and rhythm without murmurs. Sternal wound appears to be healing nicely. LUNGS: Clear, but diminished bilaterally with no wheezes or rales. ABDOMEN: Soft, nontender, and nondistended. Positive bowel sounds. No masses. No organomegaly. EXTREMITIES: No cyanosis, clubbing, or edema. DISPOSITION: The patient is discharged to the inpatient rehab facility. He will remain on oxygen. He will receive occupational therapy and physical therapy. He will be on a diabetic heart-healthy diet. DISCHARGE MEDICATIONS: He will be on: 1. Xanax 2 mg t.i.d. p.r.n. 2. Aspirin 325 daily. 3. Atorvastatin 80 mg at bedtime. 4. Coreg 6.25 mg t.i.d. 5. Humalog sliding scale. 6. Lantus 30 units subcu q. a.m. 7. DuoNeb. 8. Zestril 2.5 daily. 9. Tamsulosin 4 mg daily. 10. Globe 1-2 q.4 hours p.r.n. 11. Neurontin 300 mg t.i.d. 12. Trazodone 50 mg at bedtime. 13. Glipizide 10 mg b.i.d. 14. Levothyroxine 150 mg daily. 15. Ranitidine 150 mg b.i.d. FOLLOWUP: He will follow up at the [facility] after his rehab. He will also follow up with Dr. Schaefer in [address] Bullock in 14 days. He can return to the hospital should he have any problems prior to that time. Time spent in discharge activities including face to face time with the patient and coordinating disposition was 39 minutes. Job [facility] [id number] [facility]
[2018-10-23 16:15] LABS: Actual Bicarbonate (HCO3a) 27.5 mEq/L (22-28); Analyzer IN Cardio OR; Base Excess (BEa) 1.5 mEq/L (-2.0 to +3.0); Calcium, Ionized 1.01 mmol/L (1.12-1.30); Carboxyhemoglobin (COHb) 0.3 gm% (0.0-3.0); Hemoglobin (Hb) 10.7 g/dL (14.0-18.0); Potassium - ABG Lab 5.15 mmol/L (3.70-5.30); Puncture Site ALINE; pH, Arterial 7.36 (7.35-7.45)
== END 2018-10-19 19:10 | DRG 234 ==
LOC: ERS 21:07 → CCU 21:50 → 2NO 10-16 16:29
PROVIDERS: ADMIT Internal Medicine Cardiovascular Disease; ATTEND Internal Medicine Cardiovascular Disease
PROC: 4A023N7 Measurement of Cardiac Sampling and Pressure, Left Heart, Percutaneous Approach (ICD-10-PCS; 2018-10-13)
PROC: B2111ZZ Fluoroscopy of Multiple Coronary Arteries using Low Osmolar Contrast (ICD-10-PCS; 2018-10-13)
PROC: B2151ZZ Fluoroscopy of Left Heart using Low Osmolar Contrast (ICD-10-PCS; 2018-10-13)
PROC: 021209W Bypass Coronary Artery, Three Arteries from Aorta with Autologous Venous Tissue, Open Approach (ICD-10-PCS; principal; 2018-10-14)
PROC: 02100Z9 Bypass Coronary Artery, One Artery from Left Internal Mammary, Open Approach (ICD-10-PCS; 2018-10-14)
PROC: 06BQ4ZZ Excision of Left Saphenous Vein, Percutaneous Endoscopic Approach (ICD-10-PCS; 2018-10-14)
PROC: 5A1221Z Performance of Cardiac Output, Continuous (ICD-10-PCS; 2018-10-14)
DX: I21.19 ST elevation (STEMI) myocardial infarction involving other coronary artery of inferior wall (principal); E66.2 Morbid (severe) obesity with alveolar hypoventilation; Z68.42 Body mass index [BMI] 45.0-49.9, adult; D62 Acute posthemorrhagic anemia; I42.9 Cardiomyopathy, unspecified; I50.20 Unspecified systolic (congestive) heart failure; I25.10 Atherosclerotic heart disease of native coronary artery without angina pectoris; I10 Essential (primary) hypertension; E11.9 Type 2 diabetes mellitus without complications; F17.210 Nicotine dependence, cigarettes, uncomplicated; Z79.4 Long term (current) use of insulin; J44.9 Chronic obstructive pulmonary disease, unspecified; Z79.82 Long term (current) use of aspirin; K21.9 Gastro-esophageal reflux disease without esophagitis; E03.9 Hypothyroidism, unspecified; N40.0 Benign prostatic hyperplasia without lower urinary tract symptoms; G89.29 Other chronic pain; F41.9 Anxiety disorder, unspecified; E78.5 Hyperlipidemia, unspecified; R00.0 Tachycardia, unspecified; Z83.3 Family history of diabetes mellitus; Z80.8 Family history of malignant neoplasm of other organs or systems
CPT/HCPCS: 36415; 36416; 36430; 71045; 80048; 80053; 82550; 82553; 82805; 83036; 83735; 83880; 84484; 85025; 85610; 85730; 86850; 86900; 86901; 93005; 93010; 93458; 93798; 94002; 94003; 94640; 94660; 94760; 99406; C1769; J0461; J0670; J0690; J0696; J1100; J1644; J1815; J1825; J1885; J1940; J2001; J2060; J2150; J2250; J2270; J2370; J2405; J2440; J2550; J2704; J2720; J3010; J3370; J3475; J3480; J3490; J7050; J7620; P9045; S0017; S0028

== ENCOUNTER 2019-08-08 14:01 | Inpatient (IN) | payer MEDICARE ==
[2019-08-08 14:46] LABS: #Lymphocytes 1.1 thou/uL (1.20-3.40); #Monocytes 0.9 thou/uL (0.11-0.59); #Neutrophils 7.5 thou/uL (1.40-6.50); %Eosinophils 0.1 % (0.0-10.0); %Monocytes 9.2 % (0.0-10.0); %Neutrophils 78.7 % (42.0-75.0); Hemoglobin 12.7 g/dL (14.0-18.0); Mean Corpuscular HGB CONC 31.2 g/dL (32.0-36.0); Mean Corpuscular Hemoglobin 27.9 pg (27.0-31.0); Mean Corpuscular Volume 89.4 fL (78.0-98.0); Mean Platelet Volume 7.8 fL (7.4-10.4); Platelet Count 191 thou/uL (130-400); RBC Distribution Width 13.5 % (11.5-14.5); Red Blood Cell (RBC) Count 4.56 mill/uL (4.70-6.10); White Blood Cell (WBC) Count 9.5 thou/uL (4.8-10.8)
--- NOTE | 2019-08-08 14:46 | RAD ---
XR Chest 1 View Portable HISTORY: Dizziness COMPARISON: 10/20/2018 FINDINGS: Changes of median sternotomy are again seen. The heart is enlarged. There is mild pulmonary vascular congestion. No lobar consolidation, pneumothoraces or large effusions are noted. IMPRESSION: Mild CHF.
[2019-08-08 15:06] LABS: ALT (SGPT) 33 U/L (8-55); AST (SGOT) 45 U/L (5-34); Albumin 3.7 g/dL (3.4-4.8); Alkaline Phosphatase 61 U/L (40-110); Anion Gap 11 mmol/L (10-20); BUN (Urea Nitrogen) 11 mg/dL (8.4-25.7); Bilirubin, Total 0.5 mg/dL (0.2-1.2); Calc. Creatinine Clearance 0 mL/min (70-130); Carbon Dioxide 30 mmol/L (23-31); Chloride 97 mmol/L (98-107); Estimated GFR-MDRD 79; Globulin 3.4 g/dL (2.4-3.5); Glucose 255 mg/dL (80-115); Potassium 4.1 mmol/L (3.5-5.1); Protein, Total 7.1 g/dL (5.8-8.1); Sodium 134 mmol/L (136-145)
[2019-08-08] MEDS ORDERED: Acetaminophen 500 MG TAB ONE (15:25)
[2019-08-08] MEDS ORDERED: Azithromycin 500 MG VIAL ONE (15:44)
[2019-08-08] MEDS ORDERED: cefTRIAXone\\ROCEPHIN 2 GM VIAL ONE (15:44)
[2019-08-08 16:15] LABS: Bacteria/HPF None Seen HPF (None Seen); Bilirubin Negative (Negative); Blood, Urine 2+ (Negative); Clarity Clear (Clear); Glucose, Urine (Dipstick) 100 mg/dL (Negative); Leukocyte Negative Leu/uL (Negative); Nitrite Negative (Negative); Protein, Urine (Dipstick) 10 mg/dL (Neg-Trace); Squamous Epithelial 0-3 HPF (0-3); Urobilinogen Normal mg/dL (Less than 2); WBC/HPF 0-3 HPF (0-3)
[2019-08-08 18:06] LABS: Troponin I 0.038 ng/mL (< 0.028)
[2019-08-08] MEDS ORDERED: Acetaminophen 650 MG Suppository PR PRN (18:38)
[2019-08-08] MEDS ORDERED: Acetaminophen 325 MG TAB PO PRN (18:38)
[2019-08-08] MEDS ORDERED: Ondansetron PF 4 MG/2 ML Vial IVP PRN (18:38)
[2019-08-08] MEDS ORDERED: Ondansetron ODT 4 MG TAB PO PRN (18:38)
[2019-08-08] MEDS ORDERED: Dextrose 5% in Water 1,000 ML IV PRN (18:38)
[2019-08-08] MEDS ORDERED: Guaifenesin DM 100-10/5 ML UDCUP PO PRN (18:38)
[2019-08-08] MEDS ORDERED: Dextrose 50% Abboject 50 ML SYRINGE SLOW IVP PRN (18:38)
[2019-08-08] MEDS ORDERED: Senokot S 8.6-50 MG TAB PO PRN (18:38)
[2019-08-08 19:04] VITALS: BMI 50.9
--- NOTE | 2019-08-08 19:39 | HP ---
PRIMARY CARE PHYSICIAN: [facility]. CHIEF COMPLAINT: Cough, lightheadedness, and weakness. HISTORY OF PRESENT ILLNESS: This is a 64-year-old white male with a known history of coronary artery disease and a CABG last year, also with some amount of congestive failure, on diuretics and insulin-dependent diabetes. He reports starting to feel bad the past Tuesday. This was right after his daughter with whom he was in contact was diagnosed with the flu. He started having progressive cough, first cough with productive of clear sputum, now a little bit brownish and worsening shortness of breath, he is on oxygen at baseline and uses nebulizers, but they do not seem to be helping much anymore. He also has felt chills and fevers, though he has not checked his temperature. He has also started feeling very weak on Tuesday, actually was stood up from his wheelchair and tried to ambulate and he fell. He knocked his head against the cabinets in the kitchen, fell down the floor and he had to get the Fire Department to come help get him up. He has been being careful about getting up of his wheelchair ever since then and when he does stand up, he still stand there for a while, feels a little dizzy on standing for a while before he does any movement and he has not had any falls since then. The patient continued to have some dizziness and just generalized weakness, eventually decided to come to the emergency room. In the ER, his flu test was negative. He was saturating well on his home oxygen, but he did have a fever and tachycardia, temperature to 100.8, and tachycardia initially at 105. He was given 2 L normal saline in the emergency room along with Tylenol, and his fever and pulse are returned to normal. He was also given ceftriaxone and azithromycin. The patient is feeling a little bit better, but still quite weak. PAST MEDICAL HISTORY: 1. Diabetes mellitus type 2, insulin dependent. 2. Hypertension. 3. Coronary artery disease status post CABG. 4. Congestive heart failure. 5. COPD, on home oxygen. 6. Benign prostatic hyperplasia. PAST SURGICAL HISTORY: 1. Back surgery x3. 2. Coronary artery bypass grafting x4 vessels in October 2018. 3. Lung biopsy. PAST PSYCHIATRIC HISTORY: Anxiety. SOCIAL HISTORY: The patient was a previous smoker, smoked very heavily, quit in October 2018. No alcohol or illicit drug use. FAMILY HISTORY: Mother with diabetes and coronary artery disease in her old age. ALLERGIES: CODEINE CAUSES NAUSEA, VOMITING, AND MAYBE A RASH. CURRENT MEDICATIONS: Lantus 50 units twice a day along with insulin sliding scale with meals. He does not remember his other medications and does not have them with him currently. Looking back at his previous admission, looks like he is also on; 1. Xanax 2 mg 3 times a day. 2. Aspirin 325 mg daily. 3. Atorvastatin 80 mg at night. 4. Coreg 6.25 mg 3 times a day. 5. Zestril 2.5 mg daily. 6. Tamsulosin 4 mg daily. 7. Neurontin 300 mg 3 times a day. 8. Trazodone 50 mg at night. 9. Glipizide 10 mg twice a day. 10. Levothyroxine 150 mcg daily. 11. Ranitidine 150 mg twice a day. REVIEW OF SYSTEMS: CONSTITUTIONAL: See HPI. EYES: No double vision or blurred vision. ENT: He has had a lot of congestion and drainage. No sore throat. CARDIOVASCULAR: No chest pain. No palpitations or racing heart. PULMONARY: See HPI. GASTROINTESTINAL: No abdominal pain. He did have some nausea, but no vomiting. Maybe a little bit of loose stools the 1st day, but no diarrhea or constipation since. GENITOURINARY: No dysuria or hematuria. He does have chronic difficulties with urinary urge incontinence and also trouble voiding from his large prostate. MUSCULOSKELETAL: He has chronic arthritis pains, but no specific changes recently. SKIN: No rashes or lesions noted. NEUROLOGICAL: No numbness, tingling, or focal weakness. Just generalized weakness. PHYSICAL EXAMINATION: VITAL SIGNS: Blood pressure 122/56, pulse 88, respirations 17, O2 saturation 98% on 2 L, temperature is currently 98.6. GENERAL: This is a well-developed obese white male, in no acute distress. HEENT: Pupils equal, round, and reactive to light. Oropharynx without any exudate or swelling. He does have a few vesicular lesions on his left anterior tonsillar pillar. NECK: Supple. No lymphadenopathy. No thyroid nodules or enlargement. No JVD. HEART: Regular rate and rhythm. No murmurs, rubs, or gallops. LUNGS: The patient has some mild wheezing occasionally in his bilateral lung campbell, but overall is moving air well. Has no crackling on my exam. No focal findings. ABDOMEN: Soft, obese, nontender to palpation. Normoactive bowel sounds. No hepatosplenomegaly or other masses. EXTREMITIES: No clubbing or cyanosis. He does have 1+ pitting edema to bilateral lower extremities. He and his family think this is worse than his baseline and it specifically got worse over the weekend. SKIN: No rashes or other lesions noted. NEUROLOGICAL: Intact strength and sensation in all extremities. No facial droop. I did not try and have him stand up. PSYCHIATRIC: Alert and oriented x3. Normal mood and affect. LABORATORY DATA: CBC with a normal white blood cell count, 78% neutrophils, hemoglobin is 12.7, hematocrit 40.8, platelet count is normal. Complete metabolic panel is notable for a sodium of 134, chloride of 97, glucose of 255, AST of 45, the rest was normal. Lactic acid was 1.8. Creatine kinase was elevated at 554, CK-MB was normal. Troponin was indeterminate at 0.037 and 2nd check was 0.038. Brain natriuretic peptide was normal at 90, which was down from 300 to 400 seen in his admission about 10 months ago. Urinalysis showed 7-10 red blood cells, but no white blood cells and no bacteria. IMAGING STUDIES: Chest x-ray, I did review the chest x-ray done in the emergency room along with the radiologist's report. It does show some cardiomegaly and some pulmonary vascular enlargement. No pulmonary edema. No focal infiltrates or evidence of pneumonia. ASSESSMENT AND PLAN: 1. Acute febrile illness with upper respiratory tract infection. The patient's symptoms are concerning for the flu. His flu test in the emergency room was negative; however, he has a positive flu contact at the time he got sick. Given the lack of complete sensitivity for these, I will go ahead and treat him with oseltamivir. He also may be developing pneumonia. We will continue Rocephin and azithromycin started in the emergency room. Blood and urine cultures have already been sent. 2. Does barely meet sepsis criteria with tachycardia and fever with source of infection being his upper respiratory tract infection. The patient does not have severe sepsis as he has been adequately hydrated. 3. History of possible congestive heart failure, on diuretics. The patient has now been tanked up pretty well. He does have some lower extremity edema and some engorged vessels in his chest x-ray, so we will need to watch closely for any evidence of worsening congestive failure after his resuscitation for his infection. We will go and restart his home diuretics along with his home medications as we are able to confirm those. 4. Diabetes mellitus type 2, insulin-dependent. We will resume the patient's home Lantus and put him on aggressive sliding scale with q.a.c. and at bedtime blood sugars. 5. Weakness and dizziness with standing. We will check orthostatic vital signs and we will have the patient ambulate with assistance only. We will get Physical Therapy and Occupational Therapy work with him. 6. Gastrointestinal prophylaxis. Put the patient on Pepcid twice a day. 7. Deep venous thrombosis prophylaxis. Put the patient on subcu Lovenox daily. 8. Code status. I did discuss this with the patient, he is a full code. Should he be incapacitated, he states that his three children would make medical decisions for him, two we have in the computer are Jeannette Cesar and Myesha Fam. Job ID: [id number]
[2019-08-08] MEDS ORDERED: Non-Formulary Item 1 EACH (Ranitidine Hcl [Ranitidine Hcl] 150 MG) PO SCH (21:00)
[2019-08-08] MEDS ORDERED: Carvedilol 6.25 MG TAB PO SCH (21:00)
[2019-08-08] MEDS ORDERED: Famotidine 20 MG TAB PO SCH (21:00)
[2019-08-08] MEDS ORDERED: Insulin Glargine 50 UNITS in Pre-Filled Syringe 1 EACH SC SCH (21:00)
[2019-08-08] MEDS: HumaLOG 300 UNITS/3 ML VIAL SC PRN (21:07)
[2019-08-08 21:10] LABS: Troponin I 0.018 ng/mL (< 0.028)
[2019-08-08] MEDS: Oseltamivir 75 MG CAP PO SCH (21:12)
[2019-08-08] MEDS: traZODone HCl 50 MG TAB PO SCH (21:13)
[2019-08-08] MEDS: Carvedilol 3.125 MG TAB PO SCH (21:14)
[2019-08-08] MEDS: ALPRAZolam 1 MG TAB PO SCH (21:24)
[2019-08-08] MEDS: Gabapentin 300 MG CAP PO SCH (21:27)
[2019-08-08] MEDS: Famotidine 20 MG TAB PO SCH (21:27)
[2019-08-08] MEDS: Atorvastatin Calcium 40 MG TAB PO SCH (21:28)
[2019-08-08] MEDS: Insulin Glargine 50 UNITS in Pre-Filled Syringe 1 EACH SC SCH (22:57)
[2019-08-09 04:49] LABS: #Lymphocytes 1.7 thou/uL (1.20-3.40); #Monocytes 0.9 thou/uL (0.11-0.59); #Neutrophils 6.4 thou/uL (1.40-6.50); %Basophils 0.1 % (0.0-1.0); %Eosinophils 0.3 % (0.0-10.0); %Lymphocytes 18.7 % (21.0-51.0); %Monocytes 10.3 % (0.0-10.0); %Neutrophils 70.6 % (42.0-75.0); Hemoglobin 11.7 g/dL (14.0-18.0); Mean Corpuscular HGB CONC 30.1 g/dL (32.0-36.0); Mean Corpuscular Hemoglobin 27.2 pg (27.0-31.0); Mean Corpuscular Volume 90.1 fL (78.0-98.0); Mean Platelet Volume 7.8 fL (7.4-10.4); Platelet Count 174 thou/uL (130-400); RBC Distribution Width 13.3 % (11.5-14.5)
[2019-08-09] MEDS: Levothyroxine 150 MCG TAB PO SCH (05:08)
[2019-08-09 05:14] LABS: Anion Gap 11 mmol/L (10-20); BUN (Urea Nitrogen) 12 mg/dL (8.4-25.7); Calc. Creatinine Clearance 158 mL/min (70-130); Calcium 8.6 mg/dL (7.8-10.44); Carbon Dioxide 31 mmol/L (23-31); Chloride 102 mmol/L (98-107); Estimated GFR-MDRD 81; Glucose 109 mg/dL (80-115); Potassium 4.2 mmol/L (3.5-5.1); Sodium 140 mmol/L (136-145)
[2019-08-09] MEDS: Aspirin 325 MG TAB PO SCH (08:21)
[2019-08-09] MEDS: Carvedilol 3.125 MG TAB PO SCH ×2 (08:21→20:48)
[2019-08-09] MEDS: Enoxaparin Sodium 40 MG/0.4 ML SYRINGE SC SCH (08:21)
[2019-08-09] MEDS: Oseltamivir 75 MG CAP PO SCH ×2 (08:21→20:48)
[2019-08-09] MEDS: Famotidine 20 MG TAB PO SCH ×2 (08:21→20:47)
[2019-08-09] MEDS: Gabapentin 300 MG CAP PO SCH ×3 (08:21→20:48)
[2019-08-09] MEDS: glipiZIDE 10 MG TAB PO SCH ×2 (08:21→17:00)
[2019-08-09] MEDS: Lisinopril 2.5 MG TAB PO SCH (08:21)
[2019-08-09] MEDS: Insulin Glargine 50 UNITS in Pre-Filled Syringe 1 EACH SC SCH ×2 (08:26→20:46)
[2019-08-09] MEDS ORDERED: Insulin Glargine 50 UNITS in Pre-Filled Syringe 1 EACH SC SCH (09:00)
--- NOTE | 2019-08-09 09:19 | PDOC.HOSPP ---
- Subjective Encounter Date: 08/09/19 Encounter Time: 10:20 Subjective: Patient reports continued deep cough productive of green sputum. No fever. Still very weak with standing up, though not orthostatic. Edema in legs is better this AM. - Objective Vital Signs & Weight: Vital Signs (12 hours) Temp Pulse Resp BP BP BP Pulse Ox 08/09/19 08:10 94 18 97 08/09/19 07:55 98.3 F 102 H 20 161/73 H 91 L 08/09/19 04:08 84 18 129/66 92 L 08/09/19 01:44 94 L 08/09/19 00:06 94 16 93 L 08/08/19 23:23 98.8 F 81 20 120/60 95 Weight Weight 315 lb 8 oz I&O: 08/08/19 08/09/19 08/10/19 06:59 06:59 06:59 Intake Total 1325 Output Total 1150 Balance 175 Result Diagrams: 08/09/19 04:37 08/09/19 04:37 Additional Labs: Accuchecks 08/08/19 20:45 POC Glucose 248 H Hospitalist ROS - Review of Systems Constitutional: denies: fever, chills Respiratory: reports: cough, shortness of breath Cardiovascular: denies: chest pain, palpitations Gastrointestinal: denies: nausea, vomiting, abdominal pain - Medication Medications: Active Medications Generic Name Dose Route Start Last Admin Trade Name Freq PRN Reason Stop Dose Admin Albuterol/Ipratropium 3 ml 08/08/19 19:00 08/09/19 08:10 Duoneb NEB 3 ml [id number] SUE Administration Alprazolam 1 mg 08/08/19 21:00 08/08/19 21:24 Xanax PO 1 mg TID SUE Administration Aspirin 325 mg 08/09/19 09:00 08/09/19 08:21 Aspirin PO 325 mg DAILY SUE Administration Atorvastatin Calcium 80 mg 08/08/19 21:00 08/08/19 21:28 Lipitor PO Not Given HS [facility] Carvedilol 3.125 mg 08/08/19 21:00 08/09/19 08:21 Coreg PO 3.125 mg BID SUE Administration Enoxaparin Sodium 40 mg 08/09/19 09:00 08/09/19 08:21 Lovenox SC 40 mg 0900 SUE Administration Famotidine 20 mg 08/08/19 21:00 08/09/19 08:21 Pepcid PO 20 mg BID SUE Administration Gabapentin 600 mg 08/08/19 21:00 08/09/19 08:21 Neurontin PO 600 mg TID SUE Administration Glipizide 10 mg 08/09/19 07:30 08/09/19 08:21 Glucotrol PO 10 mg BID-AC SUE Administration Insulin Glargine 50 units/ 0.5 mls @ 0 mls/hr 08/09/19 09:00 08/09/19 08:26 Miscellaneous Medication SC 0.5 mls BID SUE Administration Insulin Human Lispro 0 units 08/08/19 18:38 08/08/19 21:07 Humalog SC 2 unit .BEDTIME SLIDING SC PRN Administration Bedtime Correctional Scale Levothyroxine Sodium 150 mcg 08/09/19 06:00 08/09/19 05:08 Synthroid PO 150 mcg 0600 SUE Administration Lisinopril 2.5 mg 08/09/19 09:00 08/09/19 08:21 Zestril PO 2.5 mg DAILY SUE Administration Oseltamivir Phosphate 75 mg 08/08/19 21:00 08/09/19 08:21 Tamiflu PO 08/13/19 09:01 75 mg BID SUE Administration Sodium Chloride 10 ml 08/08/19 21:00 08/09/19 08:22 Flush - Normal Saline IVF 10 ml Q12HR SUE Administration Trazodone HCl 75 mg 08/08/19 21:00 08/08/19 21:13 Desyrel PO Not Given HS SUE - Exam General Appearance: NAD, awake alert ENT: moist mucosa Heart: RRR, no murmur, no gallops, no rubs Respiratory: no wheezes, normal chest expansion Respiratory - other findings: coarse breath sounds bilaterally, no respiratory distress on O2 Gastrointestinal: soft, non-tender, non-distended, normal bowel sounds Extremities - other findings: bilateral trace edema to shins Psychiatric: normal affect, normal behavior, A&O x 3 Hosp A/P (1) Pneumonia Code(s): J18.9 - PNEUMONIA, UNSPECIFIED ORGANISM Status: Acute (2) Flu-like symptoms Status: Acute (3) Sepsis Code(s): A41.9 - SEPSIS, UNSPECIFIED ORGANISM Status: Resolved (4) BPH (benign prostatic hyperplasia) Code(s): N40.0 - BENIGN PROSTATIC HYPERPLASIA WITHOUT LOWER URINRY TRACT SYMP Status: Chronic (5) CAD (coronary artery disease) Code(s): I25.10 - ATHSCL HEART DISEASE OF [place] CORONARY ARTERY W/O ANG PCTRS Status: Chronic (6) COPD (chronic obstructive pulmonary disease) Status: Chronic (7) Diabetes mellitus Code(s): E11.9 - TYPE 2 DIABETES MELLITUS WITHOUT COMPLICATIONS Status: Chronic (8) HLD (hyperlipidemia) Code(s): E78.5 - HYPERLIPIDEMIA, UNSPECIFIED Status: Chronic (9) HTN (hypertension) Code(s): I10 - ESSENTIAL (PRIMARY) HYPERTENSION Status: Chronic (10) Hypothyroidism Code(s): E03.9 - HYPOTHYROIDISM, UNSPECIFIED Status: Chronic (11) Morbid obesity Code(s): E66.01 - MORBID (SEVERE) OBESITY DUE TO EXCESS CALORIES Status: Chronic (12) Obesity hypoventilation syndrome Code(s): E66.2 - MORBID (SEVERE) OBESITY WITH ALVEOLAR HYPOVENTILATION Status : Chronic (13) S/P CABG x 4 Status: Chronic - Plan Patient without fever. Tachycardia resolved. Orthostatics without significant drop in BP Repeat this CXR is worisome for developing pneumonia on the right side after fluid resuscitation in the ER. Still without leukocytosis, but concern for developing pneumonia with his COPD and CHF. Will continue to watch today and continue IV antibiotics. If doing ok in the morning can consider converting to oral abx and discharge home.
[2019-08-09] MEDS: ALPRAZolam 1 MG TAB PO SCH ×3 (09:45→20:48)
--- NOTE | 2019-08-09 10:12 | RAD ---
XR Chest 1 View Portable HISTORY: Concern for pneumonia. Dizziness, COPD COMPARISON: Previous day FINDINGS: Changes of median sternotomy are again seen. The heart is enlarged. There is mild pulmonary vascular congestion. There are patchy opacities in the right upper and lower lung zones, suspicious for early/developing pneumonia.
[2019-08-09] MEDS ORDERED: cefTRIAXone\\ROCEPHIN 1 GM in Sodium Chloride 0.9% 100 ML IVPB SCH (15:00)
[2019-08-09] MEDS: cefTRIAXone\\ROCEPHIN 2 GM in Sodium Chloride 0.9% 100 ML IVPB SCH (15:59)
[2019-08-09] MEDS ORDERED: Tamsulosin HCl 0.4 MG CAP PO SCH (17:00)
[2019-08-09] MEDS: Azithromycin 500 MG in Sodium Chloride 0.9% 250 ML 250 ML IVPB SCH (17:00)
[2019-08-09] MEDS: Tamsulosin HCl 0.4 MG CAP PO SCH (20:47)
[2019-08-09] MEDS: Atorvastatin Calcium 40 MG TAB PO SCH (20:47)
[2019-08-09] MEDS: traZODone HCl 50 MG TAB PO SCH (20:48)
[2019-08-09] MEDS: HumaLOG 300 UNITS/3 ML VIAL SC PRN (20:52)
[2019-08-10] MEDS: Levothyroxine 150 MCG TAB PO SCH (05:13)
[2019-08-10] MEDS: Lisinopril 2.5 MG TAB PO SCH (08:01)
[2019-08-10] MEDS: Gabapentin 300 MG CAP PO SCH ×3 (08:01→20:04)
[2019-08-10] MEDS: Oseltamivir 75 MG CAP PO SCH ×2 (08:01→20:01)
[2019-08-10] MEDS: glipiZIDE 10 MG TAB PO SCH ×2 (08:02→15:02)
[2019-08-10] MEDS: Carvedilol 3.125 MG TAB PO SCH ×2 (08:02→20:03)
[2019-08-10] MEDS: ALPRAZolam 1 MG TAB PO SCH ×3 (08:02→22:30)
[2019-08-10] MEDS: Famotidine 20 MG TAB PO SCH ×2 (08:02→20:02)
[2019-08-10] MEDS: Aspirin 325 MG TAB PO SCH (08:02)
[2019-08-10] MEDS: Enoxaparin Sodium 40 MG/0.4 ML SYRINGE SC SCH (08:03)
[2019-08-10] MEDS: Insulin Glargine 50 UNITS in Pre-Filled Syringe 1 EACH SC SCH ×2 (08:18→20:53)
[2019-08-10] MEDS: cefTRIAXone\\ROCEPHIN 2 GM in Sodium Chloride 0.9% 100 ML IVPB SCH (14:08)
[2019-08-10] MEDS: HYDROcodone/Acetaminophen 10/325 mg Tablet PO PRN (14:12)
[2019-08-10] MEDS: Azithromycin 500 MG in Sodium Chloride 0.9% 250 ML 250 ML IVPB SCH (15:02)
--- NOTE | 2019-08-10 17:04 | PDOC.HOSPP ---
- Subjective Subjective: 64-year-old gentleman who is chronically ill with insulin-dependent diabetes mellitus, diabetic neuropathy, hypertension, hyperlipidemia, congestive heart failure, coronary artery disease with coronary artery bypass grafting last year , who has a BMI of 49 was admitted for community acquired pneumonia. Patient was chest x-rays with worsening infiltrates and I believe we cut his pneumonia before it became severe. Patient feeling profoundly weak and tired. Patient states that if he were to go home today he would likely be back in the hospital in a matter of a day or two and he is concern that he might fall. I talked with the case management about the possibility of rehabilitation placement, the patient is open to this plan. Time was given for questions, all answered in detail. - Objective Vital Signs & Weight: Vital Signs (12 hours) Temp Pulse Resp BP BP Pulse Ox 08/10/19 15:26 97.6 F 82 20 139/62 93 L 08/10/19 14:36 74 18 96 08/10/19 11:39 98.9 F 75 20 136/78 94 L 08/10/19 07:58 97.9 F 79 20 144/60 H 97 08/10/19 07:55 76 16 94 L 08/10/19 05:15 88 18 134/63 92 L Weight Weight 306 lb 11.2 oz I&O: 08/09/19 08/10/19 08/11/19 06:59 06:59 06:59 Intake Total 1325 1260 Output Total 1150 1350 Balance 175 -90 Result Diagrams: 08/09/19 04:37 08/09/19 04:37 Additional Labs: Accuchecks 08/10/19 08/10/19 08/10/19 16:47 11:44 05:18 POC Glucose 237 H 139 H 130 H 08/09/19 08/09/19 20:49 17:19 POC Glucose 210 H 195 H Radiology Reviewed by me: Yes Hospitalist ROS - Review of Systems All other systems reviewed; all pertinent +/- noted in HPI/Subj - Medication Medications: Active Medications Generic Name Dose Route Start Last Admin Trade Name Freq PRN Reason Stop Dose Admin Hydrocodone Bitart/Acetaminophen 1 tab 08/08/19 20:12 08/10/19 14:12 [place] 10/325 PO 1 tab Q4H PRN Administration Pain>4 Albuterol/Ipratropium 3 ml 08/08/19 19:00 08/10/19 14:36 Duoneb NEB 3 ml [id number] SUE Administration Alprazolam 1 mg 08/08/19 21:00 08/10/19 15:02 Xanax PO 1 mg TID SUE Administration Aspirin 325 mg 08/09/19 09:00 08/10/19 08:02 Aspirin PO 325 mg DAILY SUE Administration Atorvastatin Calcium 80 mg 08/08/19 21:00 08/09/19 20:47 Lipitor PO 80 mg HS SUE Administration Carvedilol 3.125 mg 08/08/19 21:00 08/10/19 08:02 Coreg PO 3.125 mg BID SUE Administration Enoxaparin Sodium 40 mg 08/09/19 09:00 08/10/19 08:03 Lovenox SC 40 mg 0900 SUE Administration Famotidine 20 mg 08/08/19 21:00 08/10/19 08:02 Pepcid PO 20 mg BID SUE Administration Gabapentin 600 mg 08/08/19 21:00 08/10/19 15:02 Neurontin PO 600 mg TID SUE Administration Glipizide 10 mg 08/09/19 07:30 08/10/19 15:02 Glucotrol PO 10 mg BID-AC SUE Administration Azithromycin 500 mg/ Sodium 250 mls @ 250 mls/hr 08/09/19 16:00 08/10/19 15: 02 Chloride IVPB 250 mls Q24HR SUE Administration Ceftriaxone Sodium 2 gm/ 100 mls @ 200 mls/hr 08/09/19 15:00 08/10/19 14:08 Sodium Chloride IVPB 100 mls Q24HR SUE Administration Insulin Glargine 50 units/ 0.5 mls @ 0 mls/hr 08/09/19 09:00 08/10/19 08:18 Miscellaneous Medication SC 0.5 mls BID SUE Administration Insulin Human Lispro 0 units 08/08/19 18:38 08/09/19 20:52 Humalog SC 2 unit .BEDTIME SLIDING SC PRN Administration Bedtime Correctional Scale Levothyroxine Sodium 150 mcg 08/09/19 06:00 08/10/19 05:13 Synthroid PO 150 mcg 0600 SUE Administration Lisinopril 2.5 mg 08/09/19 09:00 08/10/19 08:01 Zestril PO 2.5 mg DAILY SUE Administration Oseltamivir Phosphate 75 mg 08/08/19 21:00 08/10/19 08:01 Tamiflu PO 08/13/19 09:01 75 mg BID SUE Administration Sodium Chloride 10 ml 08/08/19 21:00 08/10/19 08:03 Flush - Normal Saline IVF 10 ml Q12HR SUE Administration Tamsulosin HCl 0.4 mg 08/09/19 21:00 08/09/19 20:47 Flomax PO 0.4 mg HS SUE Administration Trazodone HCl 75 mg 08/08/19 21:00 08/09/19 20:48 Desyrel PO Not Given HS SUE - Exam General Appearance: NAD, awake alert Eye: PERRL, anicteric sclera ENT: normocephalic atraumatic, moist mucosa Neck: supple, symmetric, no lymphadenopathy Heart: no murmur, no gallops, no rubs Respiratory: rhonchi, wheezes (few faint, decreased breath sounds secondary to body habitus) Gastrointestinal: soft, non-tender, no guarding, no rigidity Gastrointestinal - other findings: Elevated BMI Extremities: 1+ LE edema Skin: no lesions, no rashes Neurological: cranial nerve grossly intact, no focal deficits Musculoskeletal: generalized weakness Psychiatric: normal affect, normal behavior, A&O x 3 Hosp A/P (1) Flu-like symptoms Status: Acute (2) Pneumonia Code(s): J18.9 - PNEUMONIA, UNSPECIFIED ORGANISM Status: Acute (3) Sepsis Code(s): A41.9 - SEPSIS, UNSPECIFIED ORGANISM Status: Resolved (4) Tobacco abuse disorder Code(s): Z72.0 - TOBACCO USE Status: Acute (5) BPH (benign prostatic hyperplasia) Code(s): N40.0 - BENIGN PROSTATIC HYPERPLASIA WITHOUT LOWER URINRY TRACT SYMP Status: Chronic (6) CAD (coronary artery disease) Code(s): I25.10 - ATHSCL HEART DISEASE OF [place] CORONARY ARTERY W/O ANG PCTRS Status: Chronic (7) COPD (chronic obstructive pulmonary disease) Status: Chronic (8) Diabetes mellitus Code(s): E11.9 - TYPE 2 DIABETES MELLITUS WITHOUT COMPLICATIONS Status: Chronic (9) HLD (hyperlipidemia) Code(s): E78.5 - HYPERLIPIDEMIA, UNSPECIFIED Status: Chronic (10) HTN (hypertension) Code(s): I10 - ESSENTIAL (PRIMARY) HYPERTENSION Status: Chronic (11) Hypothyroidism Code(s): E03.9 - HYPOTHYROIDISM, UNSPECIFIED Status: Chronic (12) Morbid obesity Code(s): E66.01 - MORBID (SEVERE) OBESITY DUE TO EXCESS CALORIES Status: Chronic (13) Obesity hypoventilation syndrome Code(s): E66.2 - MORBID (SEVERE) OBESITY WITH ALVEOLAR HYPOVENTILATION Status : Chronic (14) S/P CABG x 4 Status: Chronic - Plan Plan: medical unit with telemetry patient with early pneumonia on chest x-ray cough with subjective shortness of breath patient is 02 dependent at home 2L to 3L at baseline patient has history of tobacco use and diagnosed the COPD he is on pulmonary specific antibiotics, though he has not had significant improvement I will add steroids to help calm down airway inflammation, IV solumedrol 40mg daily first dose now breathing treatments scheduled and as needed Rapid flu negative, though may have non typeable flu - Will continue antiviral therapy physical therapy, occupational therapy evaluation and treatment CM consult for placement continue other home medications as able G.I. prophylaxis DVT prophylaxis
[2019-08-10] MEDS ORDERED: methylPREDNISolone Sod Succ 40 MG VIAL IVP SCH (17:15)
[2019-08-10] MEDS: HumaLOG 300 UNITS/3 ML VIAL SC PRN (17:51)
[2019-08-10] MEDS: traZODone HCl 50 MG TAB PO SCH (20:03)
[2019-08-10] MEDS: Atorvastatin Calcium 40 MG TAB PO SCH (20:03)
[2019-08-10] MEDS: Tamsulosin HCl 0.4 MG CAP PO SCH (20:04)
[2019-08-11] MEDS: Levothyroxine 150 MCG TAB PO SCH (06:25)
[2019-08-11] MEDS: HumaLOG 300 UNITS/3 ML VIAL SC PRN ×3 (06:25→16:47)
[2019-08-11] MEDS: Carvedilol 3.125 MG TAB PO SCH ×2 (08:10→19:56)
[2019-08-11] MEDS: Aspirin 325 MG TAB PO SCH (08:10)
[2019-08-11] MEDS: Oseltamivir 75 MG CAP PO SCH ×2 (08:10→21:57)
[2019-08-11] MEDS: Gabapentin 300 MG CAP PO SCH ×3 (08:10→19:55)
[2019-08-11] MEDS: glipiZIDE 10 MG TAB PO SCH ×2 (08:10→15:29)
[2019-08-11] MEDS: Famotidine 20 MG TAB PO SCH ×2 (08:11→19:56)
[2019-08-11] MEDS: methylPREDNISolone Sod Succ 40 MG VIAL IVP SCH (08:11)
[2019-08-11] MEDS: Lisinopril 2.5 MG TAB PO SCH (08:11)
[2019-08-11] MEDS: ALPRAZolam 1 MG TAB PO SCH ×3 (08:12→21:58)
[2019-08-11] MEDS: Insulin Glargine 50 UNITS in Pre-Filled Syringe 1 EACH SC SCH ×2 (08:12→21:05)
[2019-08-11] MEDS: Enoxaparin Sodium 40 MG/0.4 ML SYRINGE SC SCH (08:12)
--- NOTE | 2019-08-11 10:56 | PDOC.HOSPP ---
- Subjective Subjective: Seen and examined. Diagnosed with acute COPD exacerbation, present on admission. After the addition of steroids we are improving. Breathing more comfortably. Cough less severe. Saturating well on low flow NC, which is baseline. Recommended participate with PT/OT to regain his strength and exercise tolerance. - Objective Vital Signs & Weight: Vital Signs (12 hours) Temp Pulse Resp BP BP Pulse Ox 08/11/19 07:34 98.3 F 73 18 138/62 93 L 08/11/19 06:38 91 L 08/11/19 06:37 79 16 08/11/19 04:05 98.3 F 81 18 140/63 93 L 08/11/19 00:13 16 Weight Weight 306 lb 11.2 oz I&O: 08/10/19 08/11/19 08/12/19 06:59 06:59 06:59 Intake Total 1260 1290 Output Total 1350 1900 400 Balance -90 -610 -400 Result Diagrams: 08/09/19 04:37 08/09/19 04:37 Additional Labs: Accuchecks 08/11/19 08/10/19 08/10/19 05:28 20:30 16:47 POC Glucose 254 H 249 H 237 H 08/10/19 11:44 POC Glucose 139 H Radiology Reviewed by me: Yes Hospitalist ROS - Review of Systems All other systems reviewed; all pertinent +/- noted in HPI/Subj - Medication Medications: Active Medications Generic Name Dose Route Start Last Admin Trade Name Freq PRN Reason Stop Dose Admin Hydrocodone Bitart/Acetaminophen 1 tab 08/08/19 20:12 08/10/19 14:12 [place] 10/325 PO 1 tab Q4H PRN Administration Pain>4 Albuterol/Ipratropium 3 ml 08/08/19 19:00 08/11/19 06:37 Duoneb NEB 3 ml [id number] SUE Administration Alprazolam 1 mg 08/08/19 21:00 08/11/19 08:12 Xanax PO Not Given TID SUE Aspirin 325 mg 08/09/19 09:00 08/11/19 08:10 Aspirin PO 325 mg DAILY SUE Administration Atorvastatin Calcium 80 mg 08/08/19 21:00 08/10/19 20:03 Lipitor PO 80 mg HS SUE Administration Carvedilol 3.125 mg 08/08/19 21:00 08/11/19 08:10 Coreg PO 3.125 mg BID SUE Administration Enoxaparin Sodium 40 mg 08/09/19 09:00 08/11/19 08:12 Lovenox SC 40 mg 0900 SUE Administration Famotidine 20 mg 08/08/19 21:00 08/11/19 08:11 Pepcid PO 20 mg BID SUE Administration Gabapentin 600 mg 08/08/19 21:00 08/11/19 08:10 Neurontin PO 600 mg TID SUE Administration Glipizide 10 mg 08/09/19 07:30 08/11/19 08:10 Glucotrol PO 10 mg BID-AC SUE Administration Azithromycin 500 mg/ Sodium 250 mls @ 250 mls/hr 08/09/19 16:00 08/10/19 15: 02 Chloride IVPB 250 mls Q24HR SUE Administration Ceftriaxone Sodium 2 gm/ 100 mls @ 200 mls/hr 08/09/19 15:00 08/10/19 14:08 Sodium Chloride IVPB 100 mls Q24HR SUE Administration Insulin Glargine 50 units/ 0.5 mls @ 0 mls/hr 08/09/19 09:00 08/11/19 08:12 Miscellaneous Medication SC 0.5 mls BID SUE Administration Insulin Human Lispro 0 units 08/08/19 18:38 08/11/19 06:25 Humalog SC 9 unit .AGGRESSIVE SLIDING PRN Administration Aggressive Correctional Scale Insulin Human Lispro 0 units 08/08/19 18:38 08/09/19 20:52 Humalog SC 2 unit .BEDTIME SLIDING SC PRN Administration Bedtime Correctional Scale Levothyroxine Sodium 150 mcg 08/09/19 06:00 08/11/19 06:25 Synthroid PO 150 mcg 0600 SUE Administration Lisinopril 2.5 mg 08/09/19 09:00 08/11/19 08:11 Zestril PO 2.5 mg DAILY SUE Administration Methylprednisolone Sodium Succinate 40 mg 08/11/19 09:00 08/11/19 08:11 Solu-Medrol IVP 40 mg DAILY SUE Administration Oseltamivir Phosphate 75 mg 08/08/19 21:00 08/11/19 08:10 Tamiflu PO 08/13/19 09:01 75 mg BID SUE Administration Sodium Chloride 10 ml 08/08/19 21:00 08/11/19 08:13 Flush - Normal Saline IVF 10 ml Q12HR SUE Administration Tamsulosin HCl 0.4 mg 08/09/19 21:00 08/10/19 20:04 Flomax PO 0.4 mg HS SUE Administration Trazodone HCl 75 mg 08/08/19 21:00 08/10/19 20:03 Desyrel PO Not Given HS SUE - Exam General Appearance: NAD, awake alert Eye: anicteric sclera ENT: normocephalic atraumatic, moist mucosa Neck: supple, symmetric, no lymphadenopathy Heart: no murmur, no gallops, no rubs Respiratory: no rales, normal chest expansion, no tachypnea, rhonchi, wheezes ( some improvement) Gastrointestinal: soft, non-tender, non-distended Extremities: 1+ LE edema Skin: no lesions, no rashes Neurological: cranial nerve grossly intact, no focal deficits Musculoskeletal: generalized weakness Psychiatric: normal affect, normal behavior, A&O x 3 Hosp A/P (1) Acute exacerbation of chronic obstructive pulmonary disease (COPD) Code(s): J44.1 - CHRONIC OBSTRUCTIVE PULMONARY DISEASE W (ACUTE) EXACERBATION Status: Acute (2) Flu-like symptoms Status: Acute (3) Pneumonia Code(s): J18.9 - PNEUMONIA, UNSPECIFIED ORGANISM Status: Acute (4) Sepsis Code(s): A41.9 - SEPSIS, UNSPECIFIED ORGANISM Status: Resolved (5) Tobacco abuse disorder Code(s): Z72.0 - TOBACCO USE Status: Acute (6) BPH (benign prostatic hyperplasia) Code(s): N40.0 - BENIGN PROSTATIC HYPERPLASIA WITHOUT LOWER URINRY TRACT SYMP Status: Chronic (7) CAD (coronary artery disease) Code(s): I25.10 - ATHSCL HEART DISEASE OF [place] CORONARY ARTERY W/O ANG PCTRS Status: Chronic (8) COPD (chronic obstructive pulmonary disease) Status: Chronic (9) Diabetes mellitus Code(s): E11.9 - TYPE 2 DIABETES MELLITUS WITHOUT COMPLICATIONS Status: Chronic (10) HLD (hyperlipidemia) Code(s): E78.5 - HYPERLIPIDEMIA, UNSPECIFIED Status: Chronic (11) HTN (hypertension) Code(s): I10 - ESSENTIAL (PRIMARY) HYPERTENSION Status: Chronic (12) Hypothyroidism Code(s): E03.9 - HYPOTHYROIDISM, UNSPECIFIED Status: Chronic (13) Morbid obesity Code(s): E66.01 - MORBID (SEVERE) OBESITY DUE TO EXCESS CALORIES Status: Chronic (14) Obesity hypoventilation syndrome Code(s): E66.2 - MORBID (SEVERE) OBESITY WITH ALVEOLAR HYPOVENTILATION Status : Chronic (15) S/P CABG x 4 Status: Chronic - Plan Plan: medical unit with telemetry Diagnosed with acute COPD exacerbation present on admission IV solumedrol 40mg daily - now with some improvement in symptoms IV antibiotics, pulmonary specific patient with early pneumonia on chest x-ray cough with subjective shortness of breath patient is 02 dependent at home 2L to 3L at baseline breathing treatments scheduled and as needed Rapid flu negative, though may have non typeable flu - Will continue antiviral therapy physical therapy, occupational therapy evaluation and treatment CM consult for placement continue other home medications as able G.I. prophylaxis DVT prophylaxis
[2019-08-11] MEDS: cefTRIAXone\\ROCEPHIN 2 GM in Sodium Chloride 0.9% 100 ML IVPB SCH (14:20)
[2019-08-11] MEDS: Azithromycin 500 MG in Sodium Chloride 0.9% 250 ML 250 ML IVPB SCH (15:29)
[2019-08-11] MEDS: Atorvastatin Calcium 40 MG TAB PO SCH (19:55)
[2019-08-11] MEDS: Tamsulosin HCl 0.4 MG CAP PO SCH (19:55)
[2019-08-11] MEDS: traZODone HCl 50 MG TAB PO SCH (19:59)
[2019-08-11] MEDS: HYDROcodone/Acetaminophen 10/325 mg Tablet PO PRN (21:58)
[2019-08-12] MEDS: Levothyroxine 150 MCG TAB PO SCH (05:43)
[2019-08-12] MEDS: Insulin Glargine 50 UNITS in Pre-Filled Syringe 1 EACH SC SCH ×2 (09:48→20:15)
[2019-08-12] MEDS: Enoxaparin Sodium 40 MG/0.4 ML SYRINGE SC SCH (09:48)
[2019-08-12] MEDS: methylPREDNISolone Sod Succ 40 MG VIAL IVP SCH (09:48)
[2019-08-12] MEDS: Gabapentin 300 MG CAP PO SCH ×3 (09:49→20:12)
[2019-08-12] MEDS: Aspirin 325 MG TAB PO SCH (09:49)
[2019-08-12] MEDS: Lisinopril 2.5 MG TAB PO SCH (09:49)
[2019-08-12] MEDS: ALPRAZolam 1 MG TAB PO SCH ×4 (09:49→21:52)
[2019-08-12] MEDS: Carvedilol 3.125 MG TAB PO SCH ×2 (09:49→20:13)
[2019-08-12] MEDS: glipiZIDE 10 MG TAB PO SCH ×2 (09:49→15:37)
[2019-08-12] MEDS: Famotidine 20 MG TAB PO SCH ×2 (09:49→20:13)
[2019-08-12] MEDS: Oseltamivir 75 MG CAP PO SCH ×2 (09:51→20:14)
--- NOTE | 2019-08-12 12:25 | PDOC.HOSPP ---
- Subjective Encounter Date: 08/12/19 Encounter Time: 12:25 Subjective: Continues to have productive cough. States he feels 50% better. Wearing nasal cannula at 2L. - Objective Vital Signs & Weight: Vital Signs (12 hours) Temp Pulse Resp BP BP BP Pulse Ox 08/12/19 11:50 97.6 F 80 20 121/56 L 93 L 08/12/19 09:49 73 134/60 08/12/19 08:25 94 L 08/12/19 07:30 98.1 F 73 20 134/60 94 L 08/12/19 06:18 96 08/12/19 06:14 67 12 08/12/19 03:59 98.5 F 73 16 129/60 96 08/12/19 00:41 16 Weight Weight 310 lb 12.8 oz I&O: 08/11/19 08/12/19 08/13/19 06:59 06:59 06:59 Intake Total 1290 240 240 Output Total 1900 1500 Balance -610 -1260 240 Result Diagrams: 08/09/19 04:37 08/09/19 04:37 Additional Labs: Accuchecks 08/12/19 08/12/19 08/11/19 10:36 05:46 20:55 POC Glucose 96 171 H 315 H 08/11/19 16:43 POC Glucose 311 H Hospitalist ROS - Review of Systems Constitutional: denies: fever, chills, sweats, weakness, malaise, other Respiratory: reports: cough, shortness of breath. denies: dry, hemoptysis, SOB with excertion, pleuritic pain, sputum, wheezing, other Cardiovascular: denies: chest pain, palpitations, orthopnea, paroxysmal noc. dyspnea, edema, light headedness, other Gastrointestinal: denies: nausea, vomiting, abdominal pain, diarrhea, constipation, melena, hematochezia, other All other systems reviewed; all pertinent +/- noted in HPI/Subj - Medication Medications: Active Medications Generic Name Dose Route Start Last Admin Trade Name Freq PRN Reason Stop Dose Admin Hydrocodone Bitart/Acetaminophen 1 tab 08/08/19 20:12 08/11/19 21:58 [place] 10/325 PO 1 tab Q4H PRN Administration Pain>4 Albuterol/Ipratropium 3 ml 08/08/19 19:00 08/12/19 06:14 Duoneb NEB 3 ml [id number] SUE Administration Alprazolam 1 mg 08/08/19 21:00 08/12/19 11:57 Xanax PO 1 mg TID SUE Administration Aspirin 325 mg 08/09/19 09:00 08/12/19 09:49 Aspirin PO 325 mg DAILY SUE Administration Atorvastatin Calcium 80 mg 08/08/19 21:00 08/11/19 19:55 Lipitor PO 80 mg HS SUE Administration Carvedilol 3.125 mg 08/08/19 21:00 08/12/19 09:49 Coreg PO 3.125 mg BID SUE Administration Enoxaparin Sodium 40 mg 08/09/19 09:00 08/12/19 09:48 Lovenox SC 40 mg 0900 SUE Administration Famotidine 20 mg 08/08/19 21:00 08/12/19 09:49 Pepcid PO 20 mg BID SUE Administration Gabapentin 600 mg 08/08/19 21:00 08/12/19 09:49 Neurontin PO 600 mg TID SUE Administration Glipizide 10 mg 08/09/19 07:30 08/12/19 09:49 Glucotrol PO 10 mg BID-AC SUE Administration Azithromycin 500 mg/ Sodium 250 mls @ 250 mls/hr 08/09/19 16:00 08/11/19 15: 29 Chloride IVPB 250 mls Q24HR SUE Administration Ceftriaxone Sodium 2 gm/ 100 mls @ 200 mls/hr 08/09/19 15:00 08/11/19 14:20 Sodium Chloride IVPB 100 mls Q24HR SUE Administration Insulin Glargine 50 units/ 0.5 mls @ 0 mls/hr 08/09/19 09:00 08/12/19 09:48 Miscellaneous Medication SC 0.5 mls BID SUE Administration Insulin Human Lispro 0 units 08/08/19 18:38 08/11/19 16:47 Humalog SC 11 unit .AGGRESSIVE SLIDING PRN Administration Aggressive Correctional Scale Insulin Human Lispro 0 units 08/08/19 18:38 08/09/19 20:52 Humalog SC 2 unit .BEDTIME SLIDING SC PRN Administration Bedtime Correctional Scale Levothyroxine Sodium 150 mcg 08/09/19 06:00 08/12/19 05:43 Synthroid PO 150 mcg 0600 SUE Administration Lisinopril 2.5 mg 08/09/19 09:00 08/12/19 09:49 Zestril PO 2.5 mg DAILY SUE Administration Methylprednisolone Sodium Succinate 40 mg 08/11/19 09:00 08/12/19 09:48 Solu-Medrol IVP 40 mg DAILY SUE Administration Oseltamivir Phosphate 75 mg 08/08/19 21:00 08/12/19 09:51 Tamiflu PO 08/13/19 09:01 75 mg BID SUE Administration Sodium Chloride 10 ml 08/08/19 21:00 08/12/19 09:50 Flush - Normal Saline IVF 10 ml Q12HR SUE Administration Tamsulosin HCl 0.4 mg 08/09/19 21:00 08/11/19 19:55 Flomax PO 0.4 mg HS SUE Administration Trazodone HCl 75 mg 08/08/19 21:00 08/11/19 19:59 Desyrel PO Not Given HS SUE - Exam General Appearance: NAD, awake alert Eye: PERRL, anicteric sclera ENT: normocephalic atraumatic, no oropharyngeal lesions, moist mucosa Neck: supple, symmetric, no JVD, no thyromegaly, no lymphadenopathy, no carotid bruit Heart: RRR, no murmur, no gallops, no rubs, normal peripheral pulses Respiratory: CTAB Respiratory - other findings: diminished breathe sounds bilaterally Gastrointestinal: soft, non-tender, non-distended, normal bowel sounds, no palpable masses, no hepatomegaly, no splenomegaly, no bruit Extremities: no cyanosis, no clubbing, no edema Skin: normal turgor, no lesions, no rashes Neurological: cranial nerve grossly intact, normal sensation to touch, no weakness, no focal deficits, no new deficit Musculoskeletal: normal tone, normal strength, no muscle wasting Psychiatric: normal affect, normal behavior, A&O x 3 Hosp A/P (1) Acute exacerbation of chronic obstructive pulmonary disease (COPD) Code(s): J44.1 - CHRONIC OBSTRUCTIVE PULMONARY DISEASE W (ACUTE) EXACERBATION Status: Acute (2) Pneumonia Code(s): J18.9 - PNEUMONIA, UNSPECIFIED ORGANISM Status: Acute (3) Flu-like symptoms Status: Acute (4) Sepsis Code(s): A41.9 - SEPSIS, UNSPECIFIED ORGANISM Status: Resolved (5) BPH (benign prostatic hyperplasia) Code(s): N40.0 - BENIGN PROSTATIC HYPERPLASIA WITHOUT LOWER URINRY TRACT SYMP Status: Chronic (6) Diabetes mellitus Code(s): E11.9 - TYPE 2 DIABETES MELLITUS WITHOUT COMPLICATIONS Status: Chronic (7) HLD (hyperlipidemia) Code(s): E78.5 - HYPERLIPIDEMIA, UNSPECIFIED Status: Chronic (8) HTN (hypertension) Code(s): I10 - ESSENTIAL (PRIMARY) HYPERTENSION Status: Chronic (9) Hypothyroidism Code(s): E03.9 - HYPOTHYROIDISM, UNSPECIFIED Status: Chronic (10) Morbid obesity Code(s): E66.01 - MORBID (SEVERE) OBESITY DUE TO EXCESS CALORIES Status: Chronic (11) Obesity hypoventilation syndrome Code(s): E66.2 - MORBID (SEVERE) OBESITY WITH ALVEOLAR HYPOVENTILATION Status : Chronic (12) S/P CABG x 4 Status: Chronic - Plan Continue abx and steroid, Will switch to p.o. today Titrate to maintain oxygen between 88 and 92% Continue cough assist care with repiratory therapy Continue medication from home for chronic conditions Insulin 50u lantus with moderate sliding scale PT/OT Disposition: Continue to tx, probable d/c in 24 to 48 hrs. Not interested in inpatient rehab but rather home health physical therapy. Will make arrangement tomorrow.
[2019-08-12] MEDS ORDERED: HumaLOG 300 UNITS/3 ML VIAL SC PRN (12:40)
[2019-08-12] MEDS: cefTRIAXone\\ROCEPHIN 2 GM in Sodium Chloride 0.9% 100 ML IVPB SCH (14:24)
[2019-08-12] MEDS: Azithromycin 500 MG in Sodium Chloride 0.9% 250 ML 250 ML IVPB SCH (15:37)
[2019-08-12] MEDS: Tamsulosin HCl 0.4 MG CAP PO SCH (20:12)
[2019-08-12] MEDS: Atorvastatin Calcium 40 MG TAB PO SCH (20:13)
[2019-08-12] MEDS: traZODone HCl 50 MG TAB PO SCH (20:22)
[2019-08-13 05:08] LABS: #Lymphocytes 2.8 thou/uL (1.20-3.40); #Monocytes 1.2 thou/uL (0.11-0.59); %Basophils 0.1 % (0.0-1.0); %Eosinophils 0.2 % (0.0-10.0); %Lymphocytes 27.7 % (21.0-51.0); %Monocytes 12.1 % (0.0-10.0); Hemoglobin 11.2 g/dL (14.0-18.0); Mean Corpuscular HGB CONC 31.8 g/dL (32.0-36.0); Mean Corpuscular Hemoglobin 28.2 pg (27.0-31.0); Mean Corpuscular Volume 88.7 fL (78.0-98.0); Mean Platelet Volume 7.4 fL (7.4-10.4); Platelet Count 309 thou/uL (130-400); Red Blood Cell (RBC) Count 3.98 mill/uL (4.70-6.10)
[2019-08-13] MEDS: Levothyroxine 150 MCG TAB PO SCH (05:32)
[2019-08-13] MEDS ORDERED: predniSONE 20 MG TAB PO SCH (08:00)
[2019-08-13] MEDS ORDERED: Azithromycin 250 MG TAB PO SCH (09:00)
[2019-08-13] MEDS ORDERED: Cefdinir 300 MG CAP PO SCH (09:00)
[2019-08-13] MEDS: Lisinopril 2.5 MG TAB PO SCH (09:03)
[2019-08-13] MEDS: Carvedilol 3.125 MG TAB PO SCH (09:03)
[2019-08-13] MEDS: Gabapentin 300 MG CAP PO SCH (09:04)
[2019-08-13] MEDS: Aspirin 325 MG TAB PO SCH (09:04)
[2019-08-13] MEDS: Famotidine 20 MG TAB PO SCH (09:04)
[2019-08-13] MEDS: Insulin Glargine 50 UNITS in Pre-Filled Syringe 1 EACH SC SCH (09:05)
[2019-08-13] MEDS: Enoxaparin Sodium 40 MG/0.4 ML SYRINGE SC SCH (09:05)
[2019-08-13] MEDS: glipiZIDE 10 MG TAB PO SCH (09:05)
[2019-08-13] MEDS: ALPRAZolam 1 MG TAB PO SCH (09:06)
[2019-08-13] MEDS: Oseltamivir 75 MG CAP PO SCH (09:06)
--- NOTE | 2019-08-13 10:01 | PDOC.HOSPP ---
- Subjective Encounter Date: 08/13/19 Encounter Time: 11:00 Subjective: Patient with improved SOB and cough. Still feeling weak and puny, but getting around ok with PT. No falls or legs giving out. Discussed possibility of rehab but patient refused. Will go home with HH. - Objective Vital Signs & Weight: Vital Signs (12 hours) Temp Pulse Resp BP BP Pulse Ox 08/13/19 09:03 90 08/13/19 07:55 90 14 08/13/19 07:14 98.4 F 81 20 133/76 94 L 08/13/19 03:47 97.6 F 72 20 150/67 H 94 L 08/12/19 22:55 98 F 77 19 170/70 H 94 L Weight Weight 310 lb 12.8 oz I&O: 08/12/19 08/13/19 08/14/19 06:59 06:59 06:59 Intake Total 240 1540 Output Total 1500 1900 Balance -1260 -360 Result Diagrams: 08/13/19 04:45 08/09/19 04:37 Additional Labs: Accuchecks 08/13/19 08/12/19 08/12/19 05:37 20:03 17:07 POC Glucose 141 H 318 H 319 H 08/12/19 08/12/19 11:57 10:36 POC Glucose 123 H 96 Hospitalist ROS - Review of Systems Constitutional: denies: fever, chills Respiratory: denies: cough, shortness of breath Cardiovascular: denies: chest pain, palpitations Gastrointestinal: denies: nausea, vomiting, abdominal pain - Medication Medications: Active Medications Generic Name Dose Route Start Last Admin Trade Name Freq PRN Reason Stop Dose Admin Hydrocodone Bitart/Acetaminophen 1 tab 08/08/19 20:12 08/11/19 21:58 [place] 10/325 PO 1 tab Q4H PRN Administration Pain>4 Albuterol/Ipratropium 3 ml 08/08/19 19:00 08/13/19 07:55 Duoneb NEB 3 ml [id number] SUE Administration Alprazolam 1 mg 08/08/19 21:00 08/13/19 09:06 Xanax PO Not Given TID SUE Aspirin 325 mg 08/09/19 09:00 08/13/19 09:04 Aspirin PO 325 mg DAILY SUE Administration Atorvastatin Calcium 80 mg 08/08/19 21:00 08/12/19 20:13 Lipitor PO 80 mg HS SUE Administration Azithromycin 500 mg 08/13/19 09:00 08/13/19 09:04 Zithromax PO 500 mg DAILY SUE Administration Carvedilol 3.125 mg 08/08/19 21:00 08/13/19 09:03 Coreg PO 3.125 mg BID SUE Administration Cefdinir 300 mg 08/13/19 09:00 08/13/19 09:04 Omnicef PO 300 mg BID SUE Administration Enoxaparin Sodium 40 mg 08/09/19 09:00 08/13/19 09:05 Lovenox SC 40 mg 0900 SUE Administration Famotidine 20 mg 08/08/19 21:00 08/13/19 09:04 Pepcid PO 20 mg BID SUE Administration Gabapentin 600 mg 08/08/19 21:00 08/13/19 09:04 Neurontin PO 600 mg TID SUE Administration Glipizide 10 mg 08/09/19 07:30 08/13/19 09:05 Glucotrol PO 10 mg BID-AC SUE Administration Insulin Glargine 50 units/ 0.5 mls @ 0 mls/hr 08/09/19 09:00 08/13/19 09:05 Miscellaneous Medication SC 0.5 mls BID SEU Administration Insulin Human Lispro 0 units 08/08/19 18:38 08/09/19 20:52 Humalog SC 2 unit .BEDTIME SLIDING SC PRN Administration Bedtime Correctional Scale Insulin Human Lispro 0 units 08/12/19 12:40 08/12/19 17:22 Humalog SC 8 unit .MODERATE SLIDING SC PRN Administration MODERATE SLIDING SCALE Protocol Levothyroxine Sodium 150 mcg 08/09/19 06:00 08/13/19 05:32 Synthroid PO 150 mcg 0600 SUE Administration Lisinopril 2.5 mg 08/09/19 09:00 08/13/19 09:03 Zestril PO 2.5 mg DAILY SUE Administration Prednisone 40 mg 08/13/19 08:00 08/13/19 09:05 Prednisone PO 40 mg QAM-WM SUE Administration Sodium Chloride 10 ml 08/08/19 21:00 08/13/19 09:07 Flush - Normal Saline IVF 10 ml Q12HR SUE Administration Tamsulosin HCl 0.4 mg 08/09/19 21:00 08/12/19 20:12 Flomax PO 0.4 mg HS SUE Administration Trazodone HCl 75 mg 08/08/19 21:00 08/12/19 20:22 Desyrel PO Not Given HS SUE - Exam General Appearance: NAD ENT: moist mucosa ENT - other findings: 2L NC O2 (home level) Heart: RRR, no murmur, no gallops, no rubs Respiratory: no rales, no ronchi, normal chest expansion Respiratory - other findings: occ wheeze Gastrointestinal: soft, non-tender, non-distended, normal bowel sounds Gastrointestinal - other findings: obese Extremities - other findings: trace edema, improved from admission Psychiatric: normal affect, normal behavior, A&O x 3 Hosp A/P (1) Pneumonia Code(s): J18.9 - PNEUMONIA, UNSPECIFIED ORGANISM Status: Acute (2) COPD (chronic obstructive pulmonary disease) Status: Chronic (3) Flu-like symptoms Status: Acute (4) Sepsis Code(s): A41.9 - SEPSIS, UNSPECIFIED ORGANISM Status: Resolved (5) BPH (benign prostatic hyperplasia) Code(s): N40.0 - BENIGN PROSTATIC HYPERPLASIA WITHOUT LOWER URINRY TRACT SYMP Status: Chronic (6) CAD (coronary artery disease) Code(s): I25.10 - ATHSCL HEART DISEASE OF [place] CORONARY ARTERY W/O ANG PCTRS Status: Chronic (7) Diabetes mellitus Code(s): E11.9 - TYPE 2 DIABETES MELLITUS WITHOUT COMPLICATIONS Status: Chronic (8) HLD (hyperlipidemia) Code(s): E78.5 - HYPERLIPIDEMIA, UNSPECIFIED Status: Chronic (9) HTN (hypertension) Code(s): I10 - ESSENTIAL (PRIMARY) HYPERTENSION Status: Chronic (10) Hypothyroidism Code(s): E03.9 - HYPOTHYROIDISM, UNSPECIFIED Status: Chronic (11) Morbid obesity Code(s): E66.01 - MORBID (SEVERE) OBESITY DUE TO EXCESS CALORIES Status: Chronic (12) Obesity hypoventilation syndrome Code(s): E66.2 - MORBID (SEVERE) OBESITY WITH ALVEOLAR HYPOVENTILATION Status : Chronic (13) S/P CABG x 4 Status: Chronic - Plan Patient switched to oral antibiotics for pneumonia, finished Omnicef course Ambulating well with PT D/C home with HH PT/OT
[2019-08-13 12:11] VITALS: BP 131/63; TEMP 97.6
--- NOTE | 2019-08-13 17:40 | DIS ---
DATE OF ADMISSION: 08/11/2019 DATE OF DISCHARGE: 08/13/2019 PRIMARY CARE PHYSICIAN: [facility] Dany. REASON FOR ADMISSION: Cough with weakness. DIAGNOSES AT DISCHARGE: 1. Right-sided pneumonia. 2. Chronic obstructive pulmonary disease. 3. Flu-like symptoms, resolved. 4. Sepsis, resolved. 5. Benign prostatic hyperplasia. 6. Coronary artery disease. 7. Diabetes mellitus, type 2. 8. Hyperlipidemia. 9. Hypertension. 10. Hypothyroidism. 11. Morbid obesity. 12. Obesity hypoventilation syndrome. PROCEDURES PERFORMED: Chest x-ray with repeat showing interval development of patchy opacities in the right upper and lower lung zones, suspicious for an early or developing pneumonia. CONSULTATIONS: None. SUMMARY OF HOSPITAL COURSE: This is a 64-year-old white male with a known history of coronary artery disease, recent CABG, and some amount of congestive heart failure, on diuretics, also with insulin-dependent diabetes mellitus, type 2 and COPD, on 2 L of oxygen at home. He had progressive worsening of coughing productive of sputum and shortness of breath, refractory to his nebulizers. He had also had some fever and chills. He did have a positive flu contact and got weak and fell in his house a few times. The patient eventually came into the emergency room. His vital signs were stable on his 2 L of home oxygen. His flu test was negative. His white blood cell count was normal; however, he was febrile to 100.8 in the emergency room and tachycardic. He was observed in the hospital for sepsis. Repeat chest x-ray did show developing pneumonia, and he was eventually converted to inpatient stay. He was given IV antibiotics, which were eventually converted to oral antibiotics. He did have slow improvement in his shortness of breath and his overall weakness, however, started moving around well with Physical Therapy. On the day of discharge, he was cleared to go home. DISCHARGE MANAGEMENT: Discharged home with home health. ACTIVITY: As tolerated. DIET: Diabetic, fluid-restricted diet. THERAPIES: Occupational and Physical Therapy. HOME EQUIPMENT SUPPLIES: Continue his home oxygen. FOLLOWUP: Follow up with [facility] in 7 days. DISCHARGE MEDICATIONS: 1. Cefdinir 300 mg twice a day, 10 capsules dispensed for another 5 days. 2. Prednisone 40 mg daily for another 2 days for a full 5 days of steroids. 3. Xanax 1 mg 3 times a day. 4. Aspirin 325 mg daily. 5. Atorvastatin 80 mg at night. 6. Carvedilol 3.125 mg twice a day. 7. Pepcid 20 mg twice a day. 8. Gabapentin 600 mg 3 times a day. 9. Glipizide 10 mg twice a day. 10. Humalog aggressive sliding scale. 11. [place] 10/325 one to two tablets every 4 hours as needed for pain. 12. Lantus 50 units subcutaneously twice a day. 13. DuoNeb as needed. 14. Levothyroxine 150 mcg daily. 15. Lisinopril 2.5 mg daily. 16. Tamsulosin 0.4 mg. 17. Trazodone 75 mg at night. TIME SPENT: Arranging the details of this discharge took 35 minutes. Job ID: [id number]
== END 2019-08-13 14:11 | disposition home health service (06) | DRG 871 ==
LOC: ERS 14:01 → 2SW 17:18 → OBSVTOIN 08-11 12:45
PROVIDERS: ADMIT Emergency Medicine; ATTEND Emergency Medicine
DX: A41.9 Sepsis, unspecified organism (principal); J18.9 Pneumonia, unspecified organism; J44.0 Chronic obstructive pulmonary disease with (acute) lower respiratory infection; Z68.43 Body mass index [BMI] 50.0-59.9, adult; E66.2 Morbid (severe) obesity with alveolar hypoventilation; J44.1 Chronic obstructive pulmonary disease with (acute) exacerbation; N40.0 Benign prostatic hyperplasia without lower urinary tract symptoms; I25.10 Atherosclerotic heart disease of native coronary artery without angina pectoris; E78.5 Hyperlipidemia, unspecified; E03.9 Hypothyroidism, unspecified; E11.40 Type 2 diabetes mellitus with diabetic neuropathy, unspecified; I50.9 Heart failure, unspecified; I11.0 Hypertensive heart disease with heart failure; Z95.1 Presence of aortocoronary bypass graft; Z99.81 Dependence on supplemental oxygen; Z87.891 Personal history of nicotine dependence; Z79.899 Other long term (current) drug therapy; Z79.82 Long term (current) use of aspirin; Z79.890 Hormone replacement therapy; Z79.4 Long term (current) use of insulin
CPT/HCPCS: 36415; 36416; 71045; 80048; 80053; 81003; 81015; 82550; 82553; 83605; 83880; 84484; 85025; 87040; 87086; 87804; 93005; 94640; 94644; 96361; 96365; 96367; J0456; J0696; J1650; J1815; J2920; J3490; J7050; J7512; J7620

== ENCOUNTER 2021-03-17 17:52 | Emergency (ER) | payer MEDICARE ==
[2021-03-17 18:44] LABS: #Basophils 0.1 thou/uL (0.0-0.2); #Eosinphils 0.3 thou/uL (0.0-0.7); #Lymphocytes 2.4 thou/uL (1.20-3.40); #Neutrophils 7.8 thou/uL (1.40-6.50); %Basophils 0.5 % (0.0-1.0); %Eosinophils 2.2 % (0.0-10.0); %Lymphocytes 20.7 % (21.0-51.0); %Monocytes 8.8 % (0.0-10.0); %Neutrophils 67.7 % (42.0-75.0); Hemoglobin 13.5 g/dL (14.0-18.0); Mean Corpuscular Hemoglobin 27.3 pg (27.0-31.0); Mean Corpuscular Volume 85.3 fL (78.0-98.0); Mean Platelet Volume 8.6 fL (7.4-10.4); Platelet Count 281 thou/uL (130-400); RBC Distribution Width 14.2 % (11.5-14.5); Red Blood Cell (RBC) Count 4.93 mill/uL (4.70-6.10); White Blood Cell (WBC) Count 11.6 thou/uL (4.8-10.8)
[2021-03-17 18:49] LABS: Bilirubin Negative (Negative); Blood, Urine Negative (Negative); Clarity Clear (Clear); Glucose, Urine (Dipstick) 30 mg/dL (Negative); Ketone, Urine Negative (Negative); Leukocyte Negative Leu/uL (Negative); Nitrite Negative (Negative); Protein, Urine (Dipstick) 10 mg/dL (Neg-Trace); Specific Gravity, Urine 1.023 (1.002-1.036); Urobilinogen 3 mg/dL (Less than 2); pH, Urine 5.5 (5.0-9.0)
[2021-03-17 18:58] LABS: Amphetamine Not Detected (NotDetected); Barbiturates Screen Not Detected (NotDetected); Benzodiazepine Screen Detected (NotDetected); Cocaine Metabolite Screen Not Detected (NotDetected); Methadone Not Detected (NotDetected); Methamphetamine Not Detected (NotDetected); Opiate Screen Not Detected (NotDetected); Oxycodone Screen Not Detected (NotDetected); Phencyclidine (PCP) Not Detected (NotDetected); THC/Cannabinoid Screen Not Detected (NotDetected); Tricyclic Screen Not Detected (NotDetected)
[2021-03-17 19:15] LABS: ALT (SGPT) 22 U/L (8-55); AST (SGOT) 13 U/L (5-34); Acetaminophen Less than 6.0 mcg/mL (10.0-30.0); Albumin 3.8 g/dL (3.4-4.8); Alcohol Less than 10 mg/dL (Less than 10); Alkaline Phosphatase 74 U/L (40-110); Anion Gap 13 mmol/L (10-20); BUN (Urea Nitrogen) 17 mg/dL (8.4-25.7); Bilirubin, Total 0.6 mg/dL (0.2-1.2); Calc. Creatinine Clearance 0 mL/min (70-130); Calcium 9.5 mg/dL (7.8-10.44); Carbon Dioxide 29 mmol/L (23-31); Chloride 99 mmol/L (98-107); Glucose 259 mg/dL (80-115); Potassium 4.1 mmol/L (3.5-5.1); Protein, Total 6.8 g/dL (5.8-8.1); Salicylate Less than 8.0 mg/dL (15.0-30.0); Sodium 137 mmol/L (136-145)
== END 2021-03-17 21:15 | disposition home or self-care (01) ==
LOC: ERS 17:52
DX: F32.9 Major depressive disorder, single episode, unspecified (principal); Z79.899 Other long term (current) drug therapy; Z79.4 Long term (current) use of insulin; I25.2 Old myocardial infarction; E11.9 Type 2 diabetes mellitus without complications; I10 Essential (primary) hypertension; J44.9 Chronic obstructive pulmonary disease, unspecified; Z87.891 Personal history of nicotine dependence
CPT/HCPCS: 36415; 36416; 80053; 80306; 80307; 81003; 84443; 85025; 93005

== ENCOUNTER 2021-07-10 16:10 | Inpatient (IN) | payer MEDICARE, OTHER ==
[2021-07-10] MEDS ORDERED: Cefepime 2 GM VIAL ONE (16:54)
[2021-07-10 17:00] LABS: #Eosinphils 0.2 thou/uL (0.0-0.7); #Lymphocytes 2.4 thou/uL (1.20-3.40); #Monocytes 0.8 thou/uL (0.11-0.59); #Neutrophils 5.1 thou/uL (1.40-6.50); %Basophils 0.3 % (0.0-1.0); %Lymphocytes 27.8 % (21.0-51.0); %Monocytes 9.5 % (0.0-10.0); %Neutrophils 60.4 % (42.0-75.0); Hemoglobin 12.6 g/dL (14.0-18.0); Mean Corpuscular HGB CONC 32.8 g/dL (32.0-36.0); Mean Corpuscular Hemoglobin 29.1 pg (27.0-31.0); Mean Corpuscular Volume 88.6 fL (78.0-98.0); Mean Platelet Volume 6.9 fL (7.4-10.4); Platelet Count 297 thou/uL (130-400); RBC Distribution Width 13.2 % (11.5-14.5); Red Blood Cell (RBC) Count 4.34 mill/uL (4.70-6.10); White Blood Cell (WBC) Count 8.5 thou/uL (4.8-10.8)
[2021-07-10 17:30] LABS: ALT (SGPT) 13 U/L (8-55); AST (SGOT) 13 U/L (5-34); Albumin 3.7 g/dL (3.4-4.8); Alkaline Phosphatase 84 U/L (40-110); Anion Gap 10 mmol/L (10-20); BUN (Urea Nitrogen) 12 mg/dL (8.4-25.7); Bilirubin, Total 0.5 mg/dL (0.2-1.2); Calc. Creatinine Clearance 0 mL/min (70-130); Calcium 9.6 mg/dL (7.8-10.44); Carbon Dioxide 32 mmol/L (23-31); Chloride 100 mmol/L (98-107); Globulin 3.8 g/dL (2.4-3.5); Glucose 142 mg/dL (80-115); Potassium 4.2 mmol/L (3.5-5.1); Protein, Total 7.5 g/dL (5.8-8.1); Sodium 138 mmol/L (136-145)
[2021-07-10] MEDS ORDERED: Vancomycin 1 GM/200 ML BAG ONE (17:35)
[2021-07-10 20:10] VITALS: BMI 47.0
[2021-07-10] MEDS ORDERED: Acetaminophen 325 MG TAB PO PRN (21:13)
[2021-07-10] MEDS ORDERED: Ondansetron PF 4 MG/2 ML Vial IVP PRN (21:13)
[2021-07-10] MEDS ORDERED: Dextrose 50% Abboject 50 ML SYRINGE SLOW IVP PRN (21:19)
[2021-07-10] MEDS ORDERED: Dextrose 5% in Water 1,000 ML IV PRN (21:19)
[2021-07-10] MEDS ORDERED: HYDROcodone/Acetaminophen 5/325 mg Tablet PO PRN (21:21)
[2021-07-10] MEDS ORDERED: Enoxaparin Sodium 40 MG/0.4 ML SYRINGE SC SCH (21:30)
[2021-07-10] MEDS: ALPRAZolam 1 MG TAB PO PRN (22:06)
[2021-07-10] MEDS: HYDROcodone/Acetaminophen 10/325 mg Tablet PO PRN (22:06)
[2021-07-10] MEDS: Sodium Chloride 0.9% 1,000 ML IV SCH (22:22)
[2021-07-11] MEDS: Cefepime 2 GM in Sodium Chloride 0.9% 100 ML IVPB SCH ×3 (01:18→16:13)
[2021-07-11] MEDS: Melatonin 3 MG TAB PO PRN ×2 (01:29→20:48)
[2021-07-11] MEDS: Vancomycin 1.5 GRAM/300 ML BAG 1.5 GM in Premix Bag 1 BAG IVPB SCH ×2 (02:07→13:46)
[2021-07-11] MEDS: Levothyroxine 150 MCG TAB PO SCH (06:00)
[2021-07-11] MEDS: Budesonide 0.5 MG/2 ML NEB NEB SCH ×2 (06:34→20:25)
[2021-07-11 06:40] LABS: #Eosinphils 0.3 thou/uL (0.0-0.7); #Lymphocytes 2.8 thou/uL (1.20-3.40); #Monocytes 1.1 thou/uL (0.11-0.59); #Neutrophils 5.8 thou/uL (1.40-6.50); %Basophils 0.2 % (0.0-1.0); %Eosinophils 3.1 % (0.0-10.0); %Lymphocytes 27.8 % (21.0-51.0); Mean Corpuscular HGB CONC 32.1 g/dL (32.0-36.0); Mean Corpuscular Hemoglobin 28.6 pg (27.0-31.0); Mean Corpuscular Volume 89.1 fL (78.0-98.0); Platelet Count 262 thou/uL (130-400); Red Blood Cell (RBC) Count 4.19 mill/uL (4.70-6.10)
[2021-07-11 07:00] LABS: ALT (SGPT) 11 U/L (8-55); AST (SGOT) 16 U/L (5-34); Albumin 3.2 g/dL (3.4-4.8); Alkaline Phosphatase 74 U/L (40-110); Anion Gap 11 mmol/L (10-20); BUN (Urea Nitrogen) 12 mg/dL (8.4-25.7); Bilirubin, Total 0.4 mg/dL (0.2-1.2); Calc. Creatinine Clearance 158 mL/min (70-130); Calcium 9.1 mg/dL (7.8-10.44); Carbon Dioxide 27 mmol/L (23-31); Cardiac Risk 3.8 (Less than 4.5); Chloride 104 mmol/L (98-107); Cholesterol 95 mg/dl (< 200 Desired); Globulin 3.4 g/dL (2.4-3.5); Glucose 82 mg/dL (80-115); HDL Cholesterol 25 mg/dL (>60 Neg Risk); LDL Cholesterol, Calculated 56 mg/dL; Potassium 4.1 mmol/L (3.5-5.1); Protein, Total 6.6 g/dL (5.8-8.1); Sodium 138 mmol/L (136-145); Triglycerides 68 mg/dL (Less than 150)
[2021-07-11] MEDS: Lisinopril 2.5 MG TAB PO SCH (08:29)
[2021-07-11] MEDS: Gabapentin 300 MG CAP PO SCH ×3 (08:30→20:46)
[2021-07-11] MEDS: Carvedilol 3.125 MG TAB PO SCH ×2 (08:30→20:47)
[2021-07-11] MEDS ORDERED: Famotidine/PF 20 mg/2ml Vial SLOW IVP SCH (09:00)
[2021-07-11] MEDS ORDERED: Lantus 1000 UNITS/10 ML VIAL SC SCH (09:00)
[2021-07-11] MEDS: Sodium Chloride 0.9% 1,000 ML IV SCH (11:13)
[2021-07-11] MEDS: HYDROcodone/Acetaminophen 10/325 mg Tablet PO PRN ×2 (12:19→20:45)
[2021-07-11] MEDS ORDERED: Cyproheptadine 4 MG TAB PO PRN (13:49)
[2021-07-11] MEDS ORDERED: Polyethylene Glycol 3350 17 GM Packet PO PRN (13:57)
[2021-07-11] MEDS ORDERED: Citalopram 20 MG TAB PO SCH (14:00)
[2021-07-11] MEDS ORDERED: Aspirin 81 mg Enteric Coated Tablet PO SCH (14:00)
[2021-07-11] MEDS ORDERED: Loratadine 10 MG TAB PO SCH (14:00)
[2021-07-11] MEDS: Tamsulosin HCl 0.4 MG CAP PO SCH (16:13)
[2021-07-11 17:13] LABS: SARS-CoV-2 PCR by NAA Not Detected (NotDetected)
[2021-07-11] MEDS: Enoxaparin Sodium 40 MG/0.4 ML SYRINGE SC SCH (20:45)
[2021-07-11] MEDS: Famotidine 20 MG TAB PO SCH (20:46)
[2021-07-11] MEDS: traZODone HCl 50 MG TAB PO SCH (20:47)
[2021-07-11] MEDS: Atorvastatin Calcium 40 MG TAB PO SCH (20:47)
[2021-07-11] MEDS: Lantus 1000 UNITS/10 ML VIAL SC SCH (20:50)
[2021-07-11] MEDS: HumaLOG 300 UNITS/3 ML VIAL SC PRN (20:57)
[2021-07-11] MEDS ORDERED: Atorvastatin Calcium 40 MG TAB PO SCH (21:00)
[2021-07-12 01:33] LABS: Vancomycin, Trough 13.4 ug/mL
[2021-07-12] MEDS: Cefepime 2 GM in Sodium Chloride 0.9% 100 ML IVPB SCH ×2 (01:47→08:56)
[2021-07-12] MEDS: Vancomycin 1.5 GRAM/300 ML BAG 1.5 GM in Premix Bag 1 BAG IVPB SCH ×2 (02:23→14:05)
[2021-07-12] MEDS: HYDROcodone/Acetaminophen 10/325 mg Tablet PO PRN ×3 (06:16→18:07)
[2021-07-12] MEDS: Levothyroxine 150 MCG TAB PO SCH (06:16)
[2021-07-12] MEDS: Budesonide 0.5 MG/2 ML NEB NEB SCH ×2 (06:57→18:12)
[2021-07-12] MEDS: Lantus 1000 UNITS/10 ML VIAL SC SCH ×2 (08:42→21:00)
[2021-07-12] MEDS: glipiZIDE 10 MG TAB PO SCH (08:44)
[2021-07-12] MEDS: Aspirin 81 mg Enteric Coated Tablet PO SCH (08:44)
[2021-07-12] MEDS: Gabapentin 300 MG CAP PO SCH ×3 (08:45→20:57)
[2021-07-12] MEDS: Saccharomyces boulardii 250 MG CAP PO SCH (08:45)
[2021-07-12] MEDS: Lisinopril 2.5 MG TAB PO SCH (08:45)
[2021-07-12] MEDS: Multivit, Therapeutic 1 TAB PO SCH (08:46)
[2021-07-12] MEDS: Furosemide 40 MG TAB PO SCH (08:47)
[2021-07-12] MEDS: Citalopram 20 MG TAB PO SCH (08:47)
[2021-07-12] MEDS: Loratadine 10 MG TAB PO SCH (08:47)
[2021-07-12] MEDS: Carvedilol 3.125 MG TAB PO SCH ×2 (08:47→20:57)
[2021-07-12] MEDS: Famotidine 20 MG TAB PO SCH ×2 (08:47→20:59)
[2021-07-12] MEDS: ALPRAZolam 1 MG TAB PO PRN ×2 (14:20→20:57)
[2021-07-12] MEDS ORDERED: cefTRIAXone\\ROCEPHIN 1 GM in Sodium Chloride 0.9% 100 ML IVPB SCH (15:00)
[2021-07-12] MEDS: Tamsulosin HCl 0.4 MG CAP PO SCH (16:27)
[2021-07-12] MEDS: traZODone HCl 50 MG TAB PO SCH (20:57)
[2021-07-12] MEDS: Enoxaparin Sodium 40 MG/0.4 ML SYRINGE SC SCH (21:00)
[2021-07-12] MEDS: Atorvastatin Calcium 40 MG TAB PO SCH (21:00)
[2021-07-13] MEDS: Levothyroxine 150 MCG TAB PO SCH (05:39)
[2021-07-13 06:38] LABS: #Basophils 0.1 thou/uL (0.0-0.2); #Eosinphils 0.4 thou/uL (0.0-0.7); #Lymphocytes 2.7 thou/uL (1.20-3.40); #Monocytes 1.1 thou/uL (0.11-0.59); #Neutrophils 5.7 thou/uL (1.40-6.50); %Basophils 0.6 % (0.0-1.0); %Eosinophils 3.8 % (0.0-10.0); %Lymphocytes 27.2 % (21.0-51.0); %Monocytes 10.8 % (0.0-10.0); %Neutrophils 57.6 % (42.0-75.0); Hemoglobin 12.7 g/dL (14.0-18.0); Mean Corpuscular HGB CONC 32.9 g/dL (32.0-36.0); Mean Corpuscular Hemoglobin 29.2 pg (27.0-31.0); Mean Corpuscular Volume 88.7 fL (78.0-98.0); Mean Platelet Volume 7.4 fL (7.4-10.4); Platelet Count 288 thou/uL (130-400); Red Blood Cell (RBC) Count 4.33 mill/uL (4.70-6.10)
[2021-07-13] MEDS: Budesonide 0.5 MG/2 ML NEB NEB SCH ×2 (06:46→19:03)
[2021-07-13 07:01] LABS: Anion Gap 13 mmol/L (10-20); BUN (Urea Nitrogen) 19 mg/dL (8.4-25.7); Calc. Creatinine Clearance 152 mL/min (70-130); Carbon Dioxide 29 mmol/L (23-31); Chloride 100 mmol/L (98-107); Glucose 132 mg/dL (80-115); Magnesium 1.9 mg/dL (1.6-2.6); Potassium 4.2 mmol/L (3.5-5.1); Sodium 138 mmol/L (136-145)
[2021-07-13] MEDS: Carvedilol 3.125 MG TAB PO SCH ×2 (08:37→20:16)
[2021-07-13] MEDS: Aspirin 81 mg Enteric Coated Tablet PO SCH (08:37)
[2021-07-13] MEDS: Loratadine 10 MG TAB PO SCH (08:37)
[2021-07-13] MEDS: glipiZIDE 10 MG TAB PO SCH (08:37)
[2021-07-13] MEDS: Citalopram 20 MG TAB PO SCH (08:37)
[2021-07-13] MEDS: Gabapentin 300 MG CAP PO SCH ×3 (08:38→20:14)
[2021-07-13] MEDS: Multivit, Therapeutic 1 TAB PO SCH (08:38)
[2021-07-13] MEDS: Saccharomyces boulardii 250 MG CAP PO SCH (08:38)
[2021-07-13] MEDS: Lisinopril 2.5 MG TAB PO SCH (08:38)
[2021-07-13] MEDS: Furosemide 40 MG TAB PO SCH (08:38)
[2021-07-13] MEDS: Famotidine 20 MG TAB PO SCH ×2 (08:39→20:12)
[2021-07-13] MEDS: Lantus 1000 UNITS/10 ML VIAL SC SCH ×2 (08:39→20:16)
[2021-07-13] MEDS: HumaLOG 300 UNITS/3 ML VIAL SC PRN (12:01)
[2021-07-13] MEDS ORDERED: cefTRIAXone\\ROCEPHIN 1 GM in Sodium Chloride 0.9% 100 ML IVPB SCH (13:00)
[2021-07-13] MEDS: ALPRAZolam 1 MG TAB PO PRN (15:22)
[2021-07-13] MEDS: Tamsulosin HCl 0.4 MG CAP PO SCH (17:44)
[2021-07-13] MEDS ORDERED: ALPRAZolam 0.25 MG TAB PO PRN (19:29)
[2021-07-13] MEDS: HYDROcodone/Acetaminophen 5/325 mg Tablet PO PRN (20:11)
[2021-07-13] MEDS: Atorvastatin Calcium 40 MG TAB PO SCH (20:13)
[2021-07-13] MEDS: traZODone HCl 50 MG TAB PO SCH (20:13)
[2021-07-13] MEDS: Enoxaparin Sodium 40 MG/0.4 ML SYRINGE SC SCH (20:18)
[2021-07-13] MEDS: Melatonin 3 MG TAB PO PRN (23:23)
[2021-07-14] MEDS: Levothyroxine 150 MCG TAB PO SCH (06:01)
[2021-07-14] MEDS: Budesonide 0.5 MG/2 ML NEB NEB SCH ×2 (07:24→18:46)
[2021-07-14] MEDS: glipiZIDE 10 MG TAB PO SCH (09:00)
[2021-07-14] MEDS: Aspirin 81 mg Enteric Coated Tablet PO SCH (09:00)
[2021-07-14] MEDS: Carvedilol 3.125 MG TAB PO SCH ×2 (09:01→21:11)
[2021-07-14] MEDS: Famotidine 20 MG TAB PO SCH ×2 (09:01→21:09)
[2021-07-14] MEDS: Citalopram 20 MG TAB PO SCH (09:01)
[2021-07-14] MEDS: Loratadine 10 MG TAB PO SCH (09:02)
[2021-07-14] MEDS: Furosemide 40 MG TAB PO SCH (09:02)
[2021-07-14] MEDS: Lisinopril 2.5 MG TAB PO SCH (09:02)
[2021-07-14] MEDS: Gabapentin 300 MG CAP PO SCH ×3 (09:02→21:09)
[2021-07-14] MEDS: Multivit, Therapeutic 1 TAB PO SCH (09:02)
[2021-07-14] MEDS: Lantus 1000 UNITS/10 ML VIAL SC SCH ×2 (09:03→21:11)
[2021-07-14] MEDS: Saccharomyces boulardii 250 MG CAP PO SCH (09:03)
[2021-07-14] MEDS ORDERED: cefTRIAXone\\ROCEPHIN 1 GM in Sodium Chloride 0.9% 100 ML IVPB SCH (09:15)
[2021-07-14] MEDS: HYDROcodone/Acetaminophen 5/325 mg Tablet PO PRN ×2 (10:16→21:07)
[2021-07-14] MEDS: HumaLOG 300 UNITS/3 ML VIAL SC PRN ×3 (13:07→21:11)
[2021-07-14] MEDS: ALPRAZolam 1 MG TAB PO PRN ×2 (14:28→21:06)
[2021-07-14] MEDS: Tamsulosin HCl 0.4 MG CAP PO SCH (17:40)
[2021-07-14] MEDS: Atorvastatin Calcium 40 MG TAB PO SCH (21:09)
[2021-07-14] MEDS: traZODone HCl 50 MG TAB PO SCH (21:10)
[2021-07-14] MEDS: Enoxaparin Sodium 40 MG/0.4 ML SYRINGE SC SCH (21:20)
[2021-07-15] MEDS: Levothyroxine 150 MCG TAB PO SCH (06:07)
[2021-07-15] MEDS: Budesonide 0.5 MG/2 ML NEB NEB SCH (07:57)
[2021-07-15] MEDS: Gabapentin 300 MG CAP PO SCH (08:11)
[2021-07-15] MEDS: Lisinopril 2.5 MG TAB PO SCH (08:12)
[2021-07-15] MEDS: Citalopram 20 MG TAB PO SCH (08:13)
[2021-07-15] MEDS: Saccharomyces boulardii 250 MG CAP PO SCH (08:13)
[2021-07-15] MEDS: Loratadine 10 MG TAB PO SCH (08:13)
[2021-07-15] MEDS: glipiZIDE 10 MG TAB PO SCH (08:13)
[2021-07-15] MEDS: Carvedilol 3.125 MG TAB PO SCH (08:13)
[2021-07-15] MEDS: Furosemide 40 MG TAB PO SCH (08:13)
[2021-07-15] MEDS: Famotidine 20 MG TAB PO SCH (08:13)
[2021-07-15] MEDS: Aspirin 81 mg Enteric Coated Tablet PO SCH (08:13)
[2021-07-15] MEDS: Multivit, Therapeutic 1 TAB PO SCH (08:13)
[2021-07-15] MEDS: Lantus 1000 UNITS/10 ML VIAL SC SCH (08:14)
[2021-07-15 08:20] VITALS: BP 122/68
[2021-07-15 08:40] VITALS: TEMP 97.4
[2021-07-15] MEDS ORDERED: cefTRIAXone\\ROCEPHIN 1 GM in Sodium Chloride 0.9% 100 ML IVPB SCH (09:00)
== END 2021-07-15 11:00 | disposition home or self-care (01) | DRG 603 ==
LOC: ERS 16:10 → T4-B 18:22
PROVIDERS: ADMIT Internal Medicine; ATTEND Internal Medicine
DX: L03.116 Cellulitis of left lower limb (principal); J96.11 Chronic respiratory failure with hypoxia; E66.2 Morbid (severe) obesity with alveolar hypoventilation; Z68.42 Body mass index [BMI] 45.0-49.9, adult; L03.115 Cellulitis of right lower limb; Z20.822 Contact with and (suspected) exposure to COVID-19; E11.621 Type 2 diabetes mellitus with foot ulcer; E88.09 Other disorders of plasma-protein metabolism, not elsewhere classified; J44.9 Chronic obstructive pulmonary disease, unspecified; M19.90 Unspecified osteoarthritis, unspecified site; I10 Essential (primary) hypertension; F41.9 Anxiety disorder, unspecified; F32.A Depression, unspecified; L97.519 Non-pressure chronic ulcer of other part of right foot with unspecified severity; E03.9 Hypothyroidism, unspecified; N40.0 Benign prostatic hyperplasia without lower urinary tract symptoms; I25.10 Atherosclerotic heart disease of native coronary artery without angina pectoris; N18.2 Chronic kidney disease, stage 2 (mild); I12.9 Hypertensive chronic kidney disease with stage 1 through stage 4 chronic kidney disease, or unspecified chronic kidney disease; I87.2 Venous insufficiency (chronic) (peripheral); D63.1 Anemia in chronic kidney disease; I25.2 Old myocardial infarction; Z88.5 Allergy status to narcotic agent; Z79.899 Other long term (current) drug therapy; Z79.890 Hormone replacement therapy; Z79.82 Long term (current) use of aspirin; Z79.4 Long term (current) use of insulin; Z79.51 Long term (current) use of inhaled steroids; Z95.1 Presence of aortocoronary bypass graft; Z98.890 Other specified postprocedural states; Z87.891 Personal history of nicotine dependence; Z99.81 Dependence on supplemental oxygen
CPT/HCPCS: 36415; 36416; 80048; 80053; 80061; 80202; 83036; 83605; 83735; 85025; 87040; 94640; 96374; 96375; J0692; J0696; J1650; J1815; J3370; J3490; J7050; J7620; J7626; S0028; U0003; U0005

== ENCOUNTER 2021-08-11 17:18 | Inpatient (IN) | payer OTHER ==
[2021-08-11 18:25] LABS: #Lymphocytes 0.7 thou/uL (1.20-3.40); #Monocytes 0.4 thou/uL (0.11-0.59); #Neutrophils 3.3 thou/uL (1.40-6.50); %Eosinophils 0.3 % (0.0-10.0); %Monocytes 8.3 % (0.0-10.0); %Neutrophils 75.4 % (42.0-75.0); Hemoglobin 12.1 g/dL (14.0-18.0); Mean Corpuscular HGB CONC 31.4 g/dL (32.0-36.0); Mean Corpuscular Hemoglobin 27.6 pg (27.0-31.0); Mean Corpuscular Volume 87.8 fL (78.0-98.0); Mean Platelet Volume 7.2 fL (7.4-10.4); Platelet Count 221 thou/uL (130-400); RBC Distribution Width 13.1 % (11.5-14.5); White Blood Cell (WBC) Count 4.3 thou/uL (4.8-10.8)
[2021-08-11 18:51] LABS: ALT (SGPT) 20 U/L (8-55); AST (SGOT) 25 U/L (5-34); Albumin 3.6 g/dL (3.4-4.8); Alkaline Phosphatase 63 U/L (40-110); Anion Gap 13 mmol/L (10-20); BUN (Urea Nitrogen) 12 mg/dL (8.4-25.7); Bilirubin, Total 0.5 mg/dL (0.2-1.2); Calc. Creatinine Clearance 0 mL/min (70-130); Calcium 8.9 mg/dL (7.8-10.44); Carbon Dioxide 32 mmol/L (23-31); Chloride 98 mmol/L (98-107); Globulin 3.3 g/dL (2.4-3.5); Glucose 252 mg/dL (80-115); Potassium 4.1 mmol/L (3.5-5.1); Protein, Total 6.9 g/dL (5.8-8.1); Sodium 139 mmol/L (136-145)
[2021-08-11] MEDS ORDERED: cefTRIAXone\\ROCEPHIN 2 GM VIAL ONE (19:45)
[2021-08-11] MEDS ORDERED: Azithromycin 500 MG VIAL ONE (19:45)
[2021-08-11] MEDS ORDERED: Dexamethasone 10 MG/ML VIAL ONE (19:46)
[2021-08-11] MEDS ORDERED: Ondansetron PF 4 MG/2 ML Vial IVP PRN (21:14)
[2021-08-11] MEDS ORDERED: Acetaminophen 325 MG TAB PO PRN (21:14)
[2021-08-11] MEDS ORDERED: cefTRIAXone\\ROCEPHIN 2 GM in Sodium Chloride 0.9% 100 ML IVPB SCH (21:30)
[2021-08-11 21:32] LABS: SARS-CoV-2 NAA Rapid Test DETECTED (NotDetected)
[2021-08-11] MEDS ORDERED: Senokot S 8.6-50 MG TAB PO PRN (22:16)
[2021-08-11] MEDS ORDERED: Bisacodyl 5 MG TAB PO PRN (22:16)
[2021-08-11] MEDS ORDERED: Cholecalciferol (Vitamin D3) 400 UNITS TAB PO SCH (22:30)
[2021-08-11] MEDS ORDERED: Ascorbic Acid 500 mg Chewable Tablet PO SCH (22:30)
[2021-08-11] MEDS ORDERED: Zinc Sulfate 220 MG CAP PO SCH (22:30)
[2021-08-11] MEDS ORDERED: Dextrose 5% in Water 1,000 ML IV PRN (22:43)
[2021-08-11] MEDS ORDERED: HumaLOG 300 UNITS/3 ML VIAL SC PRN (22:43)
[2021-08-11] MEDS ORDERED: Dextrose 50% Abboject 50 ML SYRINGE SLOW IVP PRN (22:43)
[2021-08-11] MEDS ORDERED: Albuterol Sulfate 1.25 MG/3 ML NEB INH SCH (22:45)
[2021-08-11] MEDS ORDERED: hydrALAZINE 20 MG/ML VIAL SLOW IVP PRN (22:49)
[2021-08-11] MEDS ORDERED: Albuterol 200 PUFF (6.7GM INHALER) INH PRN (22:55)
[2021-08-11] MEDS ORDERED: Carvedilol 3.125 MG TAB PO SCH (23:00)
[2021-08-11] MEDS ORDERED: Atorvastatin Calcium 40 MG TAB PO SCH (23:00)
[2021-08-12] MEDS ORDERED: HYDROcodone/Acetaminophen 10/325 mg Tablet PO PRN (00:13)
[2021-08-12] MEDS: HumaLOG 300 UNITS/3 ML VIAL SC PRN ×3 (00:33→17:48)
[2021-08-12 00:44] VITALS: BMI 46.6
[2021-08-12] MEDS: ALPRAZolam 1 MG TAB PO PRN (00:58)
[2021-08-12 06:21] LABS: #Lymphocytes 0.4 thou/uL (1.20-3.40); #Monocytes 0.2 thou/uL (0.11-0.59); %Eosinophils 0.6 % (0.0-10.0); %Lymphocytes 16.1 % (21.0-51.0); %Neutrophils 75.2 % (42.0-75.0); Hemoglobin 12.1 g/dL (14.0-18.0); Mean Corpuscular Hemoglobin 28.3 pg (27.0-31.0); Mean Corpuscular Volume 85.8 fL (78.0-98.0); Platelet Count 113 thou/uL (130-400); RBC Distribution Width 13.1 % (11.5-14.5); Red Blood Cell (RBC) Count 4.28 mill/uL (4.70-6.10); White Blood Cell (WBC) Count 2.6 thou/uL (4.8-10.8)
[2021-08-12 06:28] LABS: Troponin I 0.015 ng/mL (< 0.028)
[2021-08-12] MEDS: Albuterol 200 PUFF (6.7GM INHALER) INH SCH ×5 (06:31→20:56)
[2021-08-12] MEDS: Levothyroxine 150 MCG TAB PO SCH (06:56)
[2021-08-12] MEDS: Citalopram 20 MG TAB PO SCH (08:53)
[2021-08-12] MEDS: Carvedilol 3.125 MG TAB PO SCH ×2 (08:53→20:54)
[2021-08-12] MEDS: Cholecalciferol (Vitamin D3) 400 UNITS TAB PO SCH (08:53)
[2021-08-12] MEDS: Enoxaparin Sodium 40 MG/0.4 ML SYRINGE SC SCH (08:54)
[2021-08-12] MEDS: Dexamethasone 10 MG/ML VIAL SLOW IVP SCH ×2 (08:54→20:54)
[2021-08-12] MEDS: Lisinopril 2.5 MG TAB PO SCH (08:55)
[2021-08-12] MEDS: Saccharomyces boulardii 250 MG CAP PO SCH (08:55)
[2021-08-12] MEDS: Famotidine/PF 20 mg/2ml Vial SLOW IVP SCH ×2 (08:55→20:55)
[2021-08-12] MEDS: Gabapentin 300 MG CAP PO SCH (08:55)
[2021-08-12] MEDS: Furosemide 40 MG TAB PO SCH (08:55)
[2021-08-12] MEDS: Zinc Sulfate 220 MG CAP PO SCH (08:56)
[2021-08-12] MEDS: Ascorbic Acid 500 mg Chewable Tablet PO SCH (09:55)
[2021-08-12] MEDS: Lantus 1000 UNITS/10 ML VIAL SC SCH ×2 (09:56→20:56)
[2021-08-12 11:40] LABS: Anion Gap 20 mmol/L (10-20); BUN (Urea Nitrogen) 14 mg/dL (8.4-25.7); Calc. Creatinine Clearance 130 mL/min (70-130); Calcium 8.9 mg/dL (7.8-10.44); Carbon Dioxide 19 mmol/L (23-31); Chloride 101 mmol/L (98-107); Glucose 355 mg/dL (80-115); Potassium 5.1 mmol/L (3.5-5.1); Sodium 135 mmol/L (136-145)
[2021-08-12] MEDS ORDERED: REMDESIVIR 200 MG in Sodium Chloride 0.9% 250 ML 210 ML IV SCH (11:45)
[2021-08-12] MEDS: HYDROcodone/Acetaminophen 10/325 mg Tablet PO PRN (15:09)
[2021-08-12] MEDS: glipiZIDE 10 MG TAB PO SCH (17:42)
[2021-08-12] MEDS: Tamsulosin HCl 0.4 MG CAP PO SCH (17:48)
[2021-08-12] MEDS: Azithromycin 500 MG in Sodium Chloride 0.9% 250 ML 250 ML IVPB SCH (20:53)
[2021-08-12] MEDS: traZODone HCl 50 MG TAB PO SCH (20:54)
[2021-08-12] MEDS: Atorvastatin Calcium 40 MG TAB PO SCH (20:54)
[2021-08-13] MEDS: Albuterol 200 PUFF (6.7GM INHALER) INH SCH ×6 (02:44→23:38)
[2021-08-13 05:17] LABS: #Lymphocytes 0.8 thou/uL (1.20-3.40); #Monocytes 0.5 thou/uL (0.11-0.59); #Neutrophils 5.3 thou/uL (1.40-6.50); %Eosinophils 0.1 % (0.0-10.0); %Lymphocytes 11.7 % (21.0-51.0); %Neutrophils 80.1 % (42.0-75.0); Hemoglobin 12.1 g/dL (14.0-18.0); Mean Corpuscular HGB CONC 31.3 g/dL (32.0-36.0); Mean Corpuscular Hemoglobin 27.5 pg (27.0-31.0); Mean Corpuscular Volume 87.7 fL (78.0-98.0); Platelet Count 267 thou/uL (130-400); Red Blood Cell (RBC) Count 4.41 mill/uL (4.70-6.10); White Blood Cell (WBC) Count 6.6 thou/uL (4.8-10.8)
[2021-08-13 05:32] LABS: Anion Gap 12 mmol/L (10-20); BUN (Urea Nitrogen) 20 mg/dL (8.4-25.7); CRP (Inflammatory) 2.93 mg/dL (= or < 0.5); Calc. Creatinine Clearance 139 mL/min (70-130); Calcium 9.1 mg/dL (7.8-10.44); Carbon Dioxide 27 mmol/L (23-31); Chloride 99 mmol/L (98-107); Glucose 320 mg/dL (80-115); Potassium 4.4 mmol/L (3.5-5.1); Sodium 134 mmol/L (136-145)
[2021-08-13] MEDS: Levothyroxine 150 MCG TAB PO SCH (05:54)
[2021-08-13] MEDS: glipiZIDE 10 MG TAB PO SCH ×2 (05:54→18:08)
[2021-08-13] MEDS: HumaLOG 300 UNITS/3 ML VIAL SC PRN ×4 (05:55→22:07)
[2021-08-13] MEDS: Ascorbic Acid 500 mg Chewable Tablet PO SCH (10:05)
[2021-08-13] MEDS: Carvedilol 3.125 MG TAB PO SCH ×2 (10:06→22:05)
[2021-08-13] MEDS: Cholecalciferol (Vitamin D3) 400 UNITS TAB PO SCH (10:06)
[2021-08-13] MEDS: Citalopram 20 MG TAB PO SCH (10:07)
[2021-08-13] MEDS: Dexamethasone 10 MG/ML VIAL SLOW IVP SCH ×2 (10:08→22:06)
[2021-08-13] MEDS: Famotidine/PF 20 mg/2ml Vial SLOW IVP SCH ×2 (10:08→22:06)
[2021-08-13] MEDS: Enoxaparin Sodium 40 MG/0.4 ML SYRINGE SC SCH (10:08)
[2021-08-13] MEDS: Furosemide 40 MG TAB PO SCH (10:09)
[2021-08-13] MEDS: Gabapentin 300 MG CAP PO SCH (10:09)
[2021-08-13] MEDS: Lisinopril 2.5 MG TAB PO SCH (10:12)
[2021-08-13] MEDS: Zinc Sulfate 220 MG CAP PO SCH (10:13)
[2021-08-13] MEDS: REMDESIVIR 100 MG in Sodium Chloride 0.9% 250 ML 230 ML IV SCH (10:13)
[2021-08-13] MEDS: Saccharomyces boulardii 250 MG CAP PO SCH (10:13)
[2021-08-13] MEDS: Lantus 1000 UNITS/10 ML VIAL SC SCH ×2 (10:40→22:06)
[2021-08-13] MEDS: HYDROcodone/Acetaminophen 10/325 mg Tablet PO PRN (18:06)
[2021-08-13] MEDS: Tamsulosin HCl 0.4 MG CAP PO SCH (18:08)
[2021-08-13] MEDS: ALPRAZolam 1 MG TAB PO PRN (22:03)
[2021-08-13] MEDS: Atorvastatin Calcium 40 MG TAB PO SCH (22:03)
[2021-08-13] MEDS: traZODone HCl 50 MG TAB PO SCH (22:04)
[2021-08-13] MEDS: Azithromycin 500 MG in Sodium Chloride 0.9% 250 ML 250 ML IVPB SCH (22:11)
[2021-08-14] MEDS: Albuterol 200 PUFF (6.7GM INHALER) INH SCH ×6 (03:10→22:50)
[2021-08-14 06:05] LABS: #Lymphocytes 0.9 thou/uL (1.20-3.40); #Monocytes 0.7 thou/uL (0.11-0.59); #Neutrophils 7.8 thou/uL (1.40-6.50); %Eosinophils 0.1 % (0.0-10.0); %Lymphocytes 9.9 % (21.0-51.0); %Neutrophils 83.1 % (42.0-75.0); Hemoglobin 12.5 g/dL (14.0-18.0); Mean Corpuscular HGB CONC 31.3 g/dL (32.0-36.0); Mean Corpuscular Hemoglobin 27.5 pg (27.0-31.0); Mean Platelet Volume 7.8 fL (7.4-10.4); Platelet Count 321 thou/uL (130-400); RBC Distribution Width 12.9 % (11.5-14.5); Red Blood Cell (RBC) Count 4.54 mill/uL (4.70-6.10); White Blood Cell (WBC) Count 9.4 thou/uL (4.8-10.8)
[2021-08-14 06:19] LABS: Anion Gap 14 mmol/L (10-20); BUN (Urea Nitrogen) 27 mg/dL (8.4-25.7); Calc. Creatinine Clearance 134 mL/min (70-130); Calcium 9.3 mg/dL (7.8-10.44); Carbon Dioxide 29 mmol/L (23-31); Chloride 98 mmol/L (98-107); Glucose 347 mg/dL (80-115); Potassium 4.6 mmol/L (3.5-5.1); Sodium 136 mmol/L (136-145)
[2021-08-14] MEDS: Levothyroxine 150 MCG TAB PO SCH (06:23)
[2021-08-14] MEDS: HumaLOG 300 UNITS/3 ML VIAL SC PRN ×4 (06:24→21:02)
[2021-08-14] MEDS: REMDESIVIR 100 MG in Sodium Chloride 0.9% 250 ML 230 ML IV SCH (09:54)
[2021-08-14] MEDS: Lantus 1000 UNITS/10 ML VIAL SC SCH ×2 (09:55→21:00)
[2021-08-14] MEDS: Enoxaparin Sodium 40 MG/0.4 ML SYRINGE SC SCH (09:56)
[2021-08-14] MEDS: Famotidine/PF 20 mg/2ml Vial SLOW IVP SCH ×2 (09:56→21:00)
[2021-08-14] MEDS: Citalopram 20 MG TAB PO SCH (09:56)
[2021-08-14] MEDS: Cholecalciferol (Vitamin D3) 400 UNITS TAB PO SCH (09:56)
[2021-08-14] MEDS: Furosemide 40 MG TAB PO SCH (09:57)
[2021-08-14] MEDS: Gabapentin 300 MG CAP PO SCH (09:57)
[2021-08-14] MEDS: glipiZIDE 10 MG TAB PO SCH ×2 (09:57→16:32)
[2021-08-14] MEDS: Saccharomyces boulardii 250 MG CAP PO SCH (09:57)
[2021-08-14] MEDS: Lisinopril 2.5 MG TAB PO SCH (09:57)
[2021-08-14] MEDS: Dexamethasone 10 MG/ML VIAL SLOW IVP SCH (09:57)
[2021-08-14] MEDS: Zinc Sulfate 220 MG CAP PO SCH (09:57)
[2021-08-14] MEDS: Ascorbic Acid 500 mg Chewable Tablet PO SCH (09:57)
[2021-08-14] MEDS: Carvedilol 3.125 MG TAB PO SCH ×2 (09:59→21:00)
[2021-08-14] MEDS: Tamsulosin HCl 0.4 MG CAP PO SCH ×3 (16:32→20:58)
[2021-08-14] MEDS: HYDROcodone/Acetaminophen 10/325 mg Tablet PO PRN (16:41)
[2021-08-14] MEDS: Atorvastatin Calcium 40 MG TAB PO SCH (20:58)
[2021-08-14] MEDS: ALPRAZolam 1 MG TAB PO PRN (20:59)
[2021-08-14] MEDS: traZODone HCl 50 MG TAB PO SCH (20:59)
[2021-08-14] MEDS: Azithromycin 500 MG in Sodium Chloride 0.9% 250 ML 250 ML IVPB SCH (20:59)
[2021-08-15] MEDS: Albuterol 200 PUFF (6.7GM INHALER) INH SCH ×6 (03:05→23:15)
[2021-08-15 05:55] LABS: #Lymphocytes 1.3 thou/uL (1.20-3.40); #Monocytes 1.3 thou/uL (0.11-0.59); #Neutrophils 8.2 thou/uL (1.40-6.50); %Basophils 0.2 % (0.0-1.0); %Eosinophils 0.1 % (0.0-10.0); %Lymphocytes 12.1 % (21.0-51.0); %Monocytes 12.1 % (0.0-10.0); %Neutrophils 75.5 % (42.0-75.0); Hemoglobin 12.6 g/dL (14.0-18.0); Mean Corpuscular Hemoglobin 27.4 pg (27.0-31.0); Mean Corpuscular Volume 88.5 fL (78.0-98.0); Mean Platelet Volume 7.8 fL (7.4-10.4); Platelet Count 320 thou/uL (130-400); RBC Distribution Width 12.9 % (11.5-14.5); Red Blood Cell (RBC) Count 4.58 mill/uL (4.70-6.10); White Blood Cell (WBC) Count 10.8 thou/uL (4.8-10.8)
[2021-08-15] MEDS: Levothyroxine 150 MCG TAB PO SCH (06:20)
[2021-08-15 06:22] LABS: ALT (SGPT) 21 U/L (8-55); AST (SGOT) 15 U/L (5-34); Albumin 3.3 g/dL (3.4-4.8); Alkaline Phosphatase 52 U/L (40-110); Anion Gap 11 mmol/L (10-20); BUN (Urea Nitrogen) 26 mg/dL (8.4-25.7); Bilirubin, Total 0.5 mg/dL (0.2-1.2); Calc. Creatinine Clearance 141 mL/min (70-130); Calcium 8.8 mg/dL (7.8-10.44); Carbon Dioxide 29 mmol/L (23-31); Chloride 97 mmol/L (98-107); Globulin 3.3 g/dL (2.4-3.5); Glucose 297 mg/dL (80-115); Potassium 4.1 mmol/L (3.5-5.1); Protein, Total 6.6 g/dL (5.8-8.1); Sodium 133 mmol/L (136-145)
[2021-08-15] MEDS: HumaLOG 300 UNITS/3 ML VIAL SC PRN ×4 (06:23→19:52)
[2021-08-15] MEDS: glipiZIDE 10 MG TAB PO SCH ×2 (08:44→16:47)
[2021-08-15] MEDS: Ascorbic Acid 500 mg Chewable Tablet PO SCH (08:45)
[2021-08-15] MEDS: Cholecalciferol (Vitamin D3) 400 UNITS TAB PO SCH (08:45)
[2021-08-15] MEDS: Carvedilol 3.125 MG TAB PO SCH ×2 (08:45→19:44)
[2021-08-15] MEDS: Citalopram 20 MG TAB PO SCH (08:46)
[2021-08-15] MEDS: Famotidine/PF 20 mg/2ml Vial SLOW IVP SCH ×2 (08:47→19:44)
[2021-08-15] MEDS: Furosemide 40 MG TAB PO SCH (08:47)
[2021-08-15] MEDS: Enoxaparin Sodium 40 MG/0.4 ML SYRINGE SC SCH (08:47)
[2021-08-15] MEDS: Dexamethasone 10 MG/ML VIAL SLOW IVP SCH (08:47)
[2021-08-15] MEDS: Gabapentin 300 MG CAP PO SCH (08:48)
[2021-08-15] MEDS: Lantus 1000 UNITS/10 ML VIAL SC SCH ×2 (08:50→19:51)
[2021-08-15] MEDS: Lisinopril 2.5 MG TAB PO SCH (08:50)
[2021-08-15] MEDS: REMDESIVIR 100 MG in Sodium Chloride 0.9% 250 ML 230 ML IV SCH (08:52)
[2021-08-15] MEDS: Saccharomyces boulardii 250 MG CAP PO SCH (08:52)
[2021-08-15] MEDS: Zinc Sulfate 220 MG CAP PO SCH (08:53)
[2021-08-15] MEDS: Atorvastatin Calcium 40 MG TAB PO SCH (19:44)
[2021-08-15] MEDS: Azithromycin 500 MG in Sodium Chloride 0.9% 250 ML 250 ML IVPB SCH (19:44)
[2021-08-15] MEDS: ALPRAZolam 1 MG TAB PO PRN (19:44)
[2021-08-15] MEDS: Tamsulosin HCl 0.4 MG CAP PO SCH (19:44)
[2021-08-15] MEDS: traZODone HCl 50 MG TAB PO SCH (19:45)
[2021-08-16] MEDS: Albuterol 200 PUFF (6.7GM INHALER) INH SCH ×6 (03:50→21:36)
[2021-08-16 05:03] LABS: #Lymphocytes 1.7 thou/uL (1.20-3.40); #Monocytes 1.5 thou/uL (0.11-0.59); #Neutrophils 8.4 thou/uL (1.40-6.50); %Eosinophils 0.1 % (0.0-10.0); %Lymphocytes 14.6 % (21.0-51.0); %Monocytes 12.5 % (0.0-10.0); %Neutrophils 72.8 % (42.0-75.0); Mean Corpuscular HGB CONC 31.5 g/dL (32.0-36.0); Mean Corpuscular Hemoglobin 27.5 pg (27.0-31.0); Mean Corpuscular Volume 87.5 fL (78.0-98.0); Mean Platelet Volume 7.9 fL (7.4-10.4); Platelet Count 372 thou/uL (130-400); RBC Distribution Width 13.1 % (11.5-14.5); Red Blood Cell (RBC) Count 4.72 mill/uL (4.70-6.10); White Blood Cell (WBC) Count 11.5 thou/uL (4.8-10.8)
[2021-08-16 05:18] LABS: ALT (SGPT) 27 U/L (8-55); AST (SGOT) 14 U/L (5-34); Albumin 3.3 g/dL (3.4-4.8); Alkaline Phosphatase 54 U/L (40-110); Anion Gap 8 mmol/L (10-20); BUN (Urea Nitrogen) 23 mg/dL (8.4-25.7); Bilirubin, Total 0.6 mg/dL (0.2-1.2); Calc. Creatinine Clearance 144 mL/min (70-130); Calcium 9.1 mg/dL (7.8-10.44); Carbon Dioxide 33 mmol/L (23-31); Chloride 97 mmol/L (98-107); Globulin 3.3 g/dL (2.4-3.5); Glucose 236 mg/dL (80-115); Potassium 4.2 mmol/L (3.5-5.1); Protein, Total 6.6 g/dL (5.8-8.1); Sodium 134 mmol/L (136-145)
[2021-08-16] MEDS: Levothyroxine 150 MCG TAB PO SCH (05:40)
[2021-08-16] MEDS: HumaLOG 300 UNITS/3 ML VIAL SC PRN ×3 (05:40→20:40)
[2021-08-16] MEDS: REMDESIVIR 100 MG in Sodium Chloride 0.9% 250 ML 230 ML IV SCH (09:30)
[2021-08-16] MEDS: Gabapentin 300 MG CAP PO SCH (09:31)
[2021-08-16] MEDS: Citalopram 20 MG TAB PO SCH (09:31)
[2021-08-16] MEDS: glipiZIDE 10 MG TAB PO SCH ×2 (09:31→15:58)
[2021-08-16] MEDS: Zinc Sulfate 220 MG CAP PO SCH (09:31)
[2021-08-16] MEDS: Saccharomyces boulardii 250 MG CAP PO SCH (09:31)
[2021-08-16] MEDS: Dexamethasone 10 MG/ML VIAL SLOW IVP SCH (09:32)
[2021-08-16] MEDS: Furosemide 40 MG TAB PO SCH (09:32)
[2021-08-16] MEDS: Ascorbic Acid 500 mg Chewable Tablet PO SCH (09:32)
[2021-08-16] MEDS: Cholecalciferol (Vitamin D3) 400 UNITS TAB PO SCH (09:32)
[2021-08-16] MEDS: Famotidine/PF 20 mg/2ml Vial SLOW IVP SCH ×2 (09:32→20:39)
[2021-08-16] MEDS: Enoxaparin Sodium 40 MG/0.4 ML SYRINGE SC SCH (09:33)
[2021-08-16] MEDS: Lisinopril 2.5 MG TAB PO SCH (09:33)
[2021-08-16] MEDS: Lantus 1000 UNITS/10 ML VIAL SC SCH ×2 (09:35→20:39)
[2021-08-16] MEDS: Carvedilol 3.125 MG TAB PO SCH ×2 (10:01→20:38)
[2021-08-16] MEDS: HYDROcodone/Acetaminophen 10/325 mg Tablet PO PRN (16:07)
[2021-08-16] MEDS ORDERED: HumaLOG 300 UNITS/3 ML VIAL SC SCH ×2 (16:45→21:00)
[2021-08-16] MEDS: Tamsulosin HCl 0.4 MG CAP PO SCH (20:37)
[2021-08-16] MEDS: traZODone HCl 50 MG TAB PO SCH (20:37)
[2021-08-16] MEDS: Azithromycin 500 MG in Sodium Chloride 0.9% 250 ML 250 ML IVPB SCH (20:37)
[2021-08-16] MEDS: Atorvastatin Calcium 40 MG TAB PO SCH (20:38)
[2021-08-16] MEDS: ALPRAZolam 1 MG TAB PO PRN (23:46)
[2021-08-17] MEDS: Albuterol 200 PUFF (6.7GM INHALER) INH SCH ×6 (02:33→21:33)
[2021-08-17] MEDS: Levothyroxine 150 MCG TAB PO SCH (05:53)
[2021-08-17] MEDS: HumaLOG 300 UNITS/3 ML VIAL SC PRN ×4 (05:53→21:33)
[2021-08-17] MEDS: Enoxaparin Sodium 40 MG/0.4 ML SYRINGE SC SCH (08:59)
[2021-08-17] MEDS: Lisinopril 2.5 MG TAB PO SCH (08:59)
[2021-08-17] MEDS: Carvedilol 3.125 MG TAB PO SCH ×2 (09:00→21:32)
[2021-08-17] MEDS: Saccharomyces boulardii 250 MG CAP PO SCH (09:00)
[2021-08-17] MEDS: Cholecalciferol (Vitamin D3) 400 UNITS TAB PO SCH (09:00)
[2021-08-17] MEDS: Citalopram 20 MG TAB PO SCH (09:00)
[2021-08-17] MEDS: Ascorbic Acid 500 mg Chewable Tablet PO SCH (09:00)
[2021-08-17] MEDS: Gabapentin 300 MG CAP PO SCH (09:00)
[2021-08-17] MEDS: glipiZIDE 10 MG TAB PO SCH ×2 (09:00→16:38)
[2021-08-17] MEDS: Lantus 1000 UNITS/10 ML VIAL SC SCH ×2 (09:01→21:33)
[2021-08-17] MEDS: Furosemide 40 MG TAB PO SCH (09:01)
[2021-08-17] MEDS: Famotidine/PF 20 mg/2ml Vial SLOW IVP SCH ×2 (09:01→21:32)
[2021-08-17] MEDS: Zinc Sulfate 220 MG CAP PO SCH (09:01)
[2021-08-17] MEDS: Dexamethasone 10 MG/ML VIAL SLOW IVP SCH (09:01)
[2021-08-17] MEDS: HYDROcodone/Acetaminophen 10/325 mg Tablet PO PRN (14:43)
[2021-08-17] MEDS: Mometasone 200 MCG/Formoterol 5 MCG 120 PUFF INHALER INH SCH ×2 (17:40→18:08)
[2021-08-17] MEDS: Azithromycin 500 MG in Sodium Chloride 0.9% 250 ML 250 ML IVPB SCH (21:32)
[2021-08-17] MEDS: traZODone HCl 50 MG TAB PO SCH (21:32)
[2021-08-17] MEDS: Atorvastatin Calcium 40 MG TAB PO SCH (21:32)
[2021-08-17] MEDS: Tamsulosin HCl 0.4 MG CAP PO SCH (21:32)
[2021-08-17] MEDS: ALPRAZolam 1 MG TAB PO PRN (22:25)
[2021-08-18] MEDS: Albuterol 200 PUFF (6.7GM INHALER) INH SCH ×5 (03:34→17:03)
[2021-08-18] MEDS: Levothyroxine 150 MCG TAB PO SCH (05:59)
[2021-08-18] MEDS: Mometasone 200 MCG/Formoterol 5 MCG 120 PUFF INHALER INH SCH ×2 (06:00→17:03)
[2021-08-18] MEDS: HumaLOG 300 UNITS/3 ML VIAL SC PRN ×3 (06:00→17:04)
[2021-08-18 08:29] LABS: #Basophils 0.1 thou/uL (0.0-0.2); #Lymphocytes 2.2 thou/uL (1.20-3.40); #Monocytes 1.8 thou/uL (0.11-0.59); #Neutrophils 9.3 thou/uL (1.40-6.50); %Basophils 0.4 % (0.0-1.0); %Eosinophils 0.3 % (0.0-10.0); %Lymphocytes 16.6 % (21.0-51.0); %Monocytes 13.5 % (0.0-10.0); %Neutrophils 69.2 % (42.0-75.0); Hemoglobin 13.9 g/dL (14.0-18.0); Mean Corpuscular Hemoglobin 27.3 pg (27.0-31.0); Mean Corpuscular Volume 87.9 fL (78.0-98.0); Mean Platelet Volume 8.1 fL (7.4-10.4); Platelet Count 375 thou/uL (130-400); RBC Distribution Width 13.5 % (11.5-14.5); Red Blood Cell (RBC) Count 5.09 mill/uL (4.70-6.10); White Blood Cell (WBC) Count 13.4 thou/uL (4.8-10.8)
[2021-08-18 08:35] LABS: Hemoglobin A1c 9.6 % (4.0-6.0)
[2021-08-18 08:42] LABS: Anion Gap 8 mmol/L (10-20); BUN (Urea Nitrogen) 28 mg/dL (8.4-25.7); Calc. Creatinine Clearance 149 mL/min (70-130); Calcium 9.2 mg/dL (7.8-10.44); Carbon Dioxide 33 mmol/L (23-31); Chloride 98 mmol/L (98-107); Glucose 156 mg/dL (80-115); Magnesium 2.2 mg/dL (1.6-2.6); Phosphorus 3.6 mg/dL (2.3-4.7); Potassium 4.2 mmol/L (3.5-5.1); Sodium 135 mmol/L (136-145)
[2021-08-18] MEDS: Saccharomyces boulardii 250 MG CAP PO SCH (09:30)
[2021-08-18] MEDS: Lisinopril 2.5 MG TAB PO SCH (09:30)
[2021-08-18] MEDS: Gabapentin 300 MG CAP PO SCH (09:30)
[2021-08-18] MEDS: Cholecalciferol (Vitamin D3) 400 UNITS TAB PO SCH (09:30)
[2021-08-18] MEDS: Citalopram 20 MG TAB PO SCH (09:30)
[2021-08-18] MEDS: Furosemide 40 MG TAB PO SCH (09:31)
[2021-08-18] MEDS: Ascorbic Acid 500 mg Chewable Tablet PO SCH (09:31)
[2021-08-18] MEDS: Dexamethasone 10 MG/ML VIAL SLOW IVP SCH (09:31)
[2021-08-18] MEDS: Zinc Sulfate 220 MG CAP PO SCH (09:32)
[2021-08-18] MEDS: Carvedilol 3.125 MG TAB PO SCH (09:32)
[2021-08-18] MEDS: Lantus 1000 UNITS/10 ML VIAL SC SCH ×2 (09:32→15:27)
[2021-08-18] MEDS: Enoxaparin Sodium 40 MG/0.4 ML SYRINGE SC SCH (09:33)
[2021-08-18] MEDS: glipiZIDE 10 MG TAB PO SCH (09:35)
[2021-08-18 16:00] VITALS: BP 157/80; TEMP 97.7
== END 2021-08-18 18:24 | disposition home health service (06) | DRG 177 ==
LOC: ERS 17:18 → 2SW 20:05
PROVIDERS: ADMIT Internal Medicine; ATTEND Family Medicine
PROC: 8E0ZXY6 Isolation (ICD-10-PCS; principal; 2021-08-11)
PROC: XW033E5 Introduction of Remdesivir Anti-infective into Peripheral Vein, Percutaneous Approach, New Technology Group 5 (ICD-10-PCS; 2021-08-12)
DX: U07.1 COVID-19 (principal); J12.82 Pneumonia due to coronavirus disease 2019; J96.21 Acute and chronic respiratory failure with hypoxia; J44.0 Chronic obstructive pulmonary disease with (acute) lower respiratory infection; J44.1 Chronic obstructive pulmonary disease with (acute) exacerbation; Z68.42 Body mass index [BMI] 45.0-49.9, adult; I50.22 Chronic systolic (congestive) heart failure; M19.90 Unspecified osteoarthritis, unspecified site; E11.65 Type 2 diabetes mellitus with hyperglycemia; E03.9 Hypothyroidism, unspecified; F41.9 Anxiety disorder, unspecified; F32.A Depression, unspecified; I25.10 Atherosclerotic heart disease of native coronary artery without angina pectoris; E66.01 Morbid (severe) obesity due to excess calories; N40.0 Benign prostatic hyperplasia without lower urinary tract symptoms; I11.0 Hypertensive heart disease with heart failure; I25.2 Old myocardial infarction; Z88.5 Allergy status to narcotic agent; Z79.890 Hormone replacement therapy; Z79.82 Long term (current) use of aspirin; Z79.4 Long term (current) use of insulin; Z79.51 Long term (current) use of inhaled steroids; Z95.0 Presence of cardiac pacemaker; Z87.891 Personal history of nicotine dependence
CPT/HCPCS: 36415; 36416; 71045; 80048; 80053; 83036; 83605; 83735; 83880; 84100; 84145; 84443; 84484; 85025; 86140; 87040; 93005; 93306; 94640; 94760; 96365; 96366; 96375; J0248; J0456; J0696; J1100; J1650; J1815; J2405; J3490; J7050; J7620; S0028; U0002

== ENCOUNTER 2023-11-24 05:12 | Inpatient (IN) | payer MEDICARE, OTHER ==
[2023-11-24 05:42] LABS: #Basophils Less than 0.03 10x3/uL (0.0-0.2); %Basophils 0.3 % (0.0-1.0); %Eosinophils 1.4 % (0.0-10.0); %Lymphocytes 14.2 % (21.0-51.0); %Monocytes 8.9 % (0.0-10.0); %Neutrophils 74.5 % (42.0-75.0); Hematocrit 33.1 % (42.0-52.0); Hemoglobin 9.8 g/dL (14.0-18.0); Mean Corpuscular HGB CONC 29.6 g/dL (32.0-36.0); Mean Corpuscular Volume 81.1 fL (78.0-98.0); Mean Platelet Volume 10.2 fL (7.4-10.4); Platelet Count 260 10x3/uL (130-400); RBC Distribution Width 15.1 % (11.5-14.5); Red Blood Cell (RBC) Count 4.08 mill/uL (4.70-6.10)
[2023-11-24 06:01] LABS: ALT (SGPT) 11 U/L (8-55); AST (SGOT) 14 U/L (5-34); Albumin 3.2 g/dL (3.4-4.8); Alkaline Phosphatase 55 U/L (40-110); Anion Gap 12 mmol/L (10-20); BUN (Urea Nitrogen) 11 mg/dL (8.4-25.7); Bilirubin, Total 0.5 mg/dL (0.2-1.2); Calc. Creatinine Clearance 0 mL/min (70-130); Calcium 9.2 mg/dL (7.8-10.44); Carbon Dioxide 38 mmol/L (23-31); Chloride 97 mmol/L (98-107); Estimated GFR 81; Globulin 3.6 g/dL (2.4-3.5); Glucose 55 mg/dL (80-115); Potassium 3.9 mmol/L (3.5-5.1); Protein, Total 6.8 g/dL (5.8-8.1); Sodium 143 mmol/L (136-145)
[2023-11-24 06:26] LABS: #Basophils Less than 0.03 10x3/uL (0.0-0.2); %Basophils 0.3 % (0.0-1.0); %Eosinophils 0.9 % (0.0-10.0); %Lymphocytes 10.8 % (21.0-51.0); %Monocytes 7.3 % (0.0-10.0); %Neutrophils 80.4 % (42.0-75.0); Hematocrit 32.2 % (42.0-52.0); Hemoglobin 9.6 g/dL (14.0-18.0); Mean Corpuscular HGB CONC 29.8 g/dL (32.0-36.0); Mean Corpuscular Hemoglobin 24.9 pg (27.0-31.0); Mean Corpuscular Volume 83.4 fL (78.0-98.0); Mean Platelet Volume 10.2 fL (7.4-10.4); Platelet Count 255 10x3/uL (130-400); RBC Distribution Width 15.2 % (11.5-14.5); Red Blood Cell (RBC) Count 3.86 mill/uL (4.70-6.10)
[2023-11-24 06:57] LABS: Actual Bicarbonate (HCO3v) 36.6 mEq/L (22-28); Analyzer IN Cardio ER; Base Excess 8.5 mEq/L (-2.0 to +3.0); Calcium, Ionized (venous) 1.14 mmol/L (1.16-1.32); Chloride (VBG) 95 mmol/L (98-106); Hematocrit-VBG 31 % (42.0-52.0); Hemoglobin (Hb) 10.6 g/dL (12.6-17.4); Potassium (VBG) 3.68 mmol/L (3.70-5.30); Sodium 139 mmol/L (133-146); pH (venous) 7.319 (7.32-7.43)
[2023-11-24 06:57] LABS: Troponin I Less than 0.010 ng/mL (< 0.028)
[2023-11-24 07:17] LABS: ALT (SGPT) 11 U/L (8-55); AST (SGOT) 14 U/L (5-34); Albumin 3.2 g/dL (3.4-4.8); Alkaline Phosphatase 55 U/L (40-110); Anion Gap 13 mmol/L (10-20); BUN (Urea Nitrogen) 10 mg/dL (8.4-25.7); Bilirubin, Total 0.5 mg/dL (0.2-1.2); CK (CPK) 64 U/L (30-200); Calc. Creatinine Clearance 0 mL/min (70-130); Calcium 9.2 mg/dL (7.8-10.44); Carbon Dioxide 37 mmol/L (23-31); Chloride 97 mmol/L (98-107); Estimated GFR 81; Globulin 3.5 g/dL (2.4-3.5); Glucose 49 mg/dL (80-115); Lipase 10 U/L (8-78); Potassium 3.6 mmol/L (3.5-5.1); Protein, Total 6.7 g/dL (5.8-8.1); Sodium 143 mmol/L (136-145)
[2023-11-24 10:15] LABS: Bacteria/HPF None Seen HPF (None Seen); Bilirubin Negative (Negative); Blood, Urine Negative (Negative); CAUTI Indications for Culture Pelvic or flank pain; Clarity Clear (Clear); Glucose, Urine (Dipstick) 70 mg/dL (Negative); Ketone, Urine Negative (Negative); Leukocyte Negative Leu/uL (Negative); Nitrite Negative (Negative); Protein, Urine (Dipstick) 20 mg/dL (Neg-Trace); Specific Gravity, Urine 1.014 (1.002-1.036); Squamous Epithelial 0-3 HPF (0-3); Urobilinogen 6 mg/dL (Less than 2); WBC/HPF 0-3 HPF (0-3)
[2023-11-24 10:22] LABS: Urine Culture Reflex No No
[2023-11-24] MEDS ORDERED: Dextrose 50% Abboject 50 ML SYRINGE SLOW IVP PRN (10:31)
[2023-11-24] MEDS ORDERED: Dextrose 5% in Water 1,000 ML IV PRN (10:31)
[2023-11-24] MEDS ORDERED: Acetaminophen 325 MG TAB PO PRN (10:31)
[2023-11-24] MEDS ORDERED: Glucagon 1 MG/ML KIT IM PRN (10:31)
[2023-11-24] MEDS ORDERED: Ipratropium/Albuterol 3 ML NEB NEB PRN (10:32)
[2023-11-24] MEDS: Dextrose 50% Abboject 50 ML SYRINGE SLOW IVP SCH ×2 (10:49)
[2023-11-24 12:15] LABS: Iron Binding Capacity, Total 301 mcg/dL (261-462)
[2023-11-24 12:26] LABS: Iron 35 ug/dL (65-175)
[2023-11-24 13:09] LABS: Troponin I Less than 0.010 ng/mL (< 0.028)
[2023-11-24 13:31] VITALS: BMI 50.1
[2023-11-24] MEDS: Furosemide 40 MG (4 mL) VIAL SLOW IVP SCH (14:48)
[2023-11-24] MEDS: methylPREDNISolone Sod Succ 40 MG VIAL IVP SCH (14:48)
[2023-11-24] MEDS: Ipratropium/Albuterol 3 ML NEB NEB SCH (14:52)
[2023-11-24] MEDS ORDERED: Labetalol HCl 100 MG/20 ML VIAL SLOW IVP PRN (15:18)
[2023-11-24] MEDS: Carvedilol 3.125 MG TAB PO SCH (17:23)
[2023-11-24] MEDS: Tamsulosin HCl 0.4 MG CAP PO SCH (17:24)
[2023-11-24] MEDS: Lisinopril 2.5 MG TAB PO SCH (17:24)
[2023-11-24] MEDS: Mometasone 100 MCG/Formoterol 5 MCG 120 PUFF INHALER INH SCH (19:00)
[2023-11-24] MEDS: traZODone HCl 50 MG TAB PO SCH (20:19)
[2023-11-24] MEDS: HYDROcodone/Acetaminophen 5/325 mg Tablet PO PRN (20:20)
[2023-11-24] MEDS: ALPRAZolam 1 MG TAB PO PRN (20:20)
[2023-11-25 04:18] LABS: #Basophils Less than 0.03 10x3/uL (0.0-0.2); #Eosinphils Less than 0.03 10x3/uL (0.0-0.7); %Basophils 0.2 % (0.0-1.0); %Monocytes 7.6 % (0.0-10.0); %Neutrophils 79.9 % (42.0-75.0); Hematocrit 33.2 % (42.0-52.0); Hemoglobin 9.8 g/dL (14.0-18.0); Mean Corpuscular HGB CONC 29.5 g/dL (32.0-36.0); Mean Corpuscular Hemoglobin 24.3 pg (27.0-31.0); Mean Corpuscular Volume 82.2 fL (78.0-98.0); Mean Platelet Volume 10.1 fL (7.4-10.4); Platelet Count 248 10x3/uL (130-400); Red Blood Cell (RBC) Count 4.04 mill/uL (4.70-6.10)
[2023-11-25 04:29] LABS: Anion Gap 13 mmol/L (10-20); BUN (Urea Nitrogen) 11 mg/dL (8.4-25.7); Calc. Creatinine Clearance 136 mL/min (70-130); Calcium 8.9 mg/dL (7.8-10.44); Carbon Dioxide 32 mmol/L (23-31); Chloride 96 mmol/L (98-107); Estimated GFR 80; Glucose 165 mg/dL (80-115); Potassium 4.2 mmol/L (3.5-5.1); Sodium 137 mmol/L (136-145)
[2023-11-25] MEDS: Levothyroxine 150 MCG TAB PO SCH (05:56)
[2023-11-25] MEDS: Gabapentin 300 MG CAP PO SCH (09:06)
[2023-11-25] MEDS: Enoxaparin 40 MG (0.4 mL) SYRINGE SC SCH (09:06)
[2023-11-25] MEDS: Citalopram 20 MG TAB PO SCH (09:06)
[2023-11-25] MEDS: Lisinopril 2.5 MG TAB PO SCH (09:06)
[2023-11-25] MEDS: predniSONE 20 MG TAB PO SCH (14:21)
[2023-11-25] MEDS ORDERED: Lorazepam 1 MG TAB PO PRN (17:22)
[2023-11-25] MEDS: Calcium Carbonate 500 MG ChewTAB PO PRN (20:26)
[2023-11-25] MEDS ORDERED: Acetaminophen 500 MG TAB PO SCH (21:00)
[2023-11-25] MEDS: ALPRAZolam 1 MG TAB PO PRN (21:56)
[2023-11-25] MEDS: hydrALAZINE 20 MG/ML VIAL SLOW IVP PRN (21:56)
[2023-11-25] MEDS: Ondansetron PF 4 MG/2 ML Vial IVP PRN (22:02)
[2023-11-26] MEDS: HYDROcodone/Acetaminophen 5/325 mg Tablet PO PRN (04:19)
[2023-11-26 04:35] LABS: #Basophils Less than 0.03 10x3/uL (0.0-0.2); #Eosinphils Less than 0.03 10x3/uL (0.0-0.7); %Basophils 0.2 % (0.0-1.0); %Lymphocytes 12.5 % (21.0-51.0); %Monocytes 7.9 % (0.0-10.0); %Neutrophils 79.1 % (42.0-75.0); Hematocrit 35.5 % (42.0-52.0); Hemoglobin 10.8 g/dL (14.0-18.0); Mean Corpuscular HGB CONC 30.4 g/dL (32.0-36.0); Mean Corpuscular Hemoglobin 24.8 pg (27.0-31.0); Mean Corpuscular Volume 81.6 fL (78.0-98.0); Mean Platelet Volume 10.3 fL (7.4-10.4); Platelet Count 324 10x3/uL (130-400); Red Blood Cell (RBC) Count 4.35 mill/uL (4.70-6.10)
[2023-11-26 05:16] LABS: Anion Gap 15 mmol/L (10-20); BUN (Urea Nitrogen) 15 mg/dL (8.4-25.7); Calc. Creatinine Clearance 137 mL/min (70-130); Calcium 9.9 mg/dL (7.8-10.44); Carbon Dioxide 36 mmol/L (23-31); Chloride 90 mmol/L (98-107); Estimated GFR 82; Glucose 177 mg/dL (80-115); Sodium 137 mmol/L (136-145)
[2023-11-26] MEDS: HumaLOG 300 UNITS/3 ML VIAL SC PRN ×2 (05:48→21:24)
[2023-11-26] MEDS: predniSONE 20 MG TAB PO SCH (11:42)
[2023-11-26] MEDS: Glycerin Adult Supp. (12 ct jar) PR SCH (15:49)
[2023-11-26] MEDS ORDERED: Promethazine HCl 12.5 MG in Sodium Chloride 0.9% 50 ML IVPB PRN (15:56)
[2023-11-26] MEDS ORDERED: Albuterol 200 PUFF (6.7GM INHALER) INH PRN (16:49)
[2023-11-26] MEDS ORDERED: Ipratropium/Albuterol 3 ML NEB NEB PRN (16:49)
[2023-11-26] MEDS: Mometasone 200 MCG/Formoterol 5 MCG 120 PUFF INHALER INH SCH (20:01)
[2023-11-26] MEDS ORDERED: Insulin Glargine 30 UNITS/0.3 ML VIAL SC SCH (21:00)
[2023-11-26] MEDS: Metoclopramide HCl 10 MG (2 mL) VIAL IVP SCH (21:06)
[2023-11-26] MEDS: Insulin Glargine 30 UNITS/0.3 ML VIAL SC SCH (21:07)
[2023-11-26] MEDS: Famotidine 20 MG TAB PO SCH (21:07)
[2023-11-27 04:55] LABS: #Basophils Less than 0.03 10x3/uL (0.0-0.2); #Eosinphils Less than 0.03 10x3/uL (0.0-0.7); %Basophils 0.1 % (0.0-1.0); %Lymphocytes 7.7 % (21.0-51.0); %Monocytes 10.2 % (0.0-10.0); %Neutrophils 81.6 % (42.0-75.0); Hematocrit 39.2 % (42.0-52.0); Mean Corpuscular HGB CONC 30.6 g/dL (32.0-36.0); Mean Corpuscular Hemoglobin 23.9 pg (27.0-31.0); Mean Corpuscular Volume 77.9 fL (78.0-98.0); Mean Platelet Volume 9.6 fL (7.4-10.4); Platelet Count 387 10x3/uL (130-400); RBC Distribution Width 15.1 % (11.5-14.5); Red Blood Cell (RBC) Count 5.03 mill/uL (4.70-6.10)
[2023-11-27 05:06] LABS: Anion Gap 17 mmol/L (10-20); BUN (Urea Nitrogen) 26 mg/dL (8.4-25.7); Calc. Creatinine Clearance 107 mL/min (70-130); Calcium 10.3 mg/dL (7.8-10.44); Carbon Dioxide 37 mmol/L (23-31); Chloride 87 mmol/L (98-107); Estimated GFR 67; Glucose 196 mg/dL (80-115); Potassium 3.5 mmol/L (3.5-5.1); Sodium 137 mmol/L (136-145)
[2023-11-27] MEDS: Cholecalciferol (Vitamin D3) 400 UNITS TAB PO SCH (11:02)
[2023-11-27] MEDS: Pantoprazole DR 40 MG TAB PO SCH (11:02)
[2023-11-27] MEDS: predniSONE 20 MG TAB PO SCH (11:03)
[2023-11-27] MEDS: Carvedilol 3.125 MG TAB PO SCH ×2 (11:03→17:08)
[2023-11-27] MEDS: Aspirin 325 MG TAB PO SCH (11:04)
[2023-11-27] MEDS: acetaZOLAMIDE Sodium 500 mg Vial IVP SCH (12:55)
[2023-11-27] MEDS ORDERED: ALPRAZolam 1 MG TAB PO PRN (15:39)
[2023-11-27 15:47] LABS: Base Excess 9.9 mEq/L (-2.0 to +3.0); Calcium, Ionized (venous) 1.15 mmol/L (1.16-1.32); Chloride (VBG) 87 mmol/L (98-106); Hematocrit-VBG 40 % (42.0-52.0); Hemoglobin (Hb) 13.5 g/dL (12.6-17.4); Potassium (VBG) 3.53 mmol/L (3.70-5.30); Sodium 133 mmol/L (133-146); pH (venous) 7.474 (7.32-7.43)
[2023-11-27] MEDS: Ascorbic Acid 500 mg Chewable Tablet PO SCH (17:10)
[2023-11-27] MEDS: Gabapentin 300 MG CAP PO SCH (20:39)
[2023-11-27] MEDS: ALPRAZolam 1 MG TAB PO PRN (21:52)
[2023-11-28 04:18] LABS: #Basophils Less than 0.03 10x3/uL (0.0-0.2); #Eosinphils Less than 0.03 10x3/uL (0.0-0.7); %Basophils 0.1 % (0.0-1.0); %Lymphocytes 13.8 % (21.0-51.0); %Monocytes 10.6 % (0.0-10.0); Hemoglobin 12.6 g/dL (14.0-18.0); Mean Corpuscular HGB CONC 30.7 g/dL (32.0-36.0); Mean Corpuscular Hemoglobin 24.4 pg (27.0-31.0); Mean Corpuscular Volume 79.3 fL (78.0-98.0); Mean Platelet Volume 9.7 fL (7.4-10.4); Platelet Count 415 10x3/uL (130-400); Red Blood Cell (RBC) Count 5.17 mill/uL (4.70-6.10)
[2023-11-28 04:33] LABS: Anion Gap 17 mmol/L (10-20); BUN (Urea Nitrogen) 29 mg/dL (8.4-25.7); Calc. Creatinine Clearance 103 mL/min (70-130); Calcium 10.4 mg/dL (7.8-10.44); Carbon Dioxide 31 mmol/L (23-31); Chloride 91 mmol/L (98-107); Estimated GFR 64; Glucose 179 mg/dL (80-115); Potassium 3.3 mmol/L (3.5-5.1); Sodium 136 mmol/L (136-145)
[2023-11-28] MEDS ORDERED: Electrolyte Replacement Protocol 1 EACH FS SCH (04:45)
[2023-11-28] MEDS: Potassium Chloride 20 MEQ TAB PO SCH ×2 (05:44→11:14)
[2023-11-28 07:16] VITALS: BMI 44.6
[2023-11-28] MEDS ORDERED: AcetaZOLAMIDE 250 MG TAB PO SCH (09:00)
[2023-11-28 09:49] LABS: Potassium 3.2 mmol/L (3.5-5.1)
[2023-11-28 11:10] LABS: Actual Bicarbonate (HCO3a) 31.3 mEq/L (22-28); Base Excess (BEa) 6.7 mEq/L (-2.0 to +3.0); CO2 Tension 44.6 mmHg (35.0-45.0); Calcium, Ionized (arterial) 1.22 mmol/L (1.12-1.30); Carboxyhemoglobin (COHb) 1.2 gm% (0.0-3.0); Hematocrit-ABG 40 % (42.0-52.0); Hemoglobin (Hb) 13.7 g/dL (14.0-18.0); O2 Tension (PaO2), arterial 78.3 mmHg (> 70.0); Potassium - ABG Lab 3.55 mmol/L (3.70-5.30); pH, Arterial 7.464 (7.35-7.45)
[2023-11-28 11:14] LABS: Puncture Site LRA
[2023-11-28] MEDS: ALPRAZolam 1 MG TAB PO SCH ×3 (11:15→20:50)
[2023-11-28] MEDS: Pantoprazole DR 40 MG TAB PO SCH (11:16)
[2023-11-28] MEDS: Polyethylene Glycol 3350 17 GM Packet PO SCH (11:23)
[2023-11-28] MEDS ORDERED: Potassium Chloride 20 MEQ TAB PO SCH (15:30)
[2023-11-28] MEDS: Potassium Bicarbonate/Cit Ac 20 MEQ TAB PO SCH (17:15)
[2023-11-28] MEDS: predniSONE 20 MG TAB PO SCH (17:15)
[2023-11-28 20:36] LABS: Potassium 4.3 mmol/L (3.5-5.1)
[2023-11-28] MEDS ORDERED: ALPRAZolam 1 MG TAB PO SCH ×2 (21:00)
[2023-11-28 23:37] LABS: Bacteria/HPF None Seen HPF (None Seen); Bilirubin Negative (Negative); Blood, Urine 1+ (Negative); CAUTI Indications for Culture Alt mental st,lethar; Clarity Clear (Clear); Glucose, Urine (Dipstick) Normal (Negative); Ketone, Urine Negative (Negative); Leukocyte Negative Leu/uL (Negative); Nitrite Negative (Negative); Protein, Urine (Dipstick) 10 mg/dL (Neg-Trace); Specific Gravity, Urine 1.019 (1.002-1.036); Squamous Epithelial 0-3 HPF (0-3); WBC/HPF 0-3 HPF (0-3)
[2023-11-28 23:43] LABS: Urine Culture Reflex No No
[2023-11-29 04:29] LABS: #Basophils Less than 0.03 10x3/uL (0.0-0.2); #Eosinphils Less than 0.03 10x3/uL (0.0-0.7); %Basophils 0.1 % (0.0-1.0); %Lymphocytes 13.4 % (21.0-51.0); %Neutrophils 77.1 % (42.0-75.0); Hematocrit 40.6 % (42.0-52.0); Hemoglobin 12.6 g/dL (14.0-18.0); Mean Corpuscular Hemoglobin 24.2 pg (27.0-31.0); Mean Corpuscular Volume 78.1 fL (78.0-98.0); Mean Platelet Volume 10.2 fL (7.4-10.4); Platelet Count 414 10x3/uL (130-400); RBC Distribution Width 15.2 % (11.5-14.5)
[2023-11-29 04:48] LABS: Anion Gap 15 mmol/L (10-20); BUN (Urea Nitrogen) 46 mg/dL (8.4-25.7); Calc. Creatinine Clearance 83 mL/min (70-130); Carbon Dioxide 29 mmol/L (23-31); Chloride 94 mmol/L (98-107); Estimated GFR 51; Glucose 193 mg/dL (80-115); Potassium 4.4 mmol/L (3.5-5.1); Sodium 134 mmol/L (136-145)
[2023-11-29] MEDS: Albumin 25% 25 GM (100 mL) BOT IVPB SCH (12:11)
[2023-11-30 04:24] LABS: #Basophils Less than 0.03 10x3/uL (0.0-0.2); %Basophils 0.1 % (0.0-1.0); %Eosinophils 0.3 % (0.0-10.0); %Monocytes 11.8 % (0.0-10.0); %Neutrophils 66.5 % (42.0-75.0); Hematocrit 36.6 % (42.0-52.0); Hemoglobin 11.4 g/dL (14.0-18.0); Mean Corpuscular HGB CONC 31.1 g/dL (32.0-36.0); Mean Corpuscular Hemoglobin 24.8 pg (27.0-31.0); Mean Corpuscular Volume 79.7 fL (78.0-98.0); Mean Platelet Volume 9.9 fL (7.4-10.4); Platelet Count 354 10x3/uL (130-400); RBC Distribution Width 15.3 % (11.5-14.5); Red Blood Cell (RBC) Count 4.59 mill/uL (4.70-6.10)
[2023-11-30 04:46] LABS: Anion Gap 15 mmol/L (10-20); BUN (Urea Nitrogen) 47 mg/dL (8.4-25.7); Calc. Creatinine Clearance 90 mL/min (70-130); Calcium 9.9 mg/dL (7.8-10.44); Carbon Dioxide 28 mmol/L (23-31); Chloride 96 mmol/L (98-107); Estimated GFR 56; Glucose 180 mg/dL (80-115); Potassium 3.7 mmol/L (3.5-5.1); Sodium 135 mmol/L (136-145)
[2023-11-30] MEDS: predniSONE 5 MG TAB PO SCH (09:04)
[2023-11-30 21:19] VITALS: BP 138/62; TEMP 98
== END 2023-11-30 21:40 | DRG 196 ==
LOC: ERS 05:12 → ERHOLD 09:52 → IMCU/EMU 13:29 → 2NO 11-25 18:23
PROVIDERS: ADMIT Internal Medicine; ATTEND Emergency Medicine
PROC: 4A13XR1 Monitoring of Arterial Saturation, Peripheral, External Approach (ICD-10-PCS; principal; 2023-11-24)
PROC: 5A09357 Assistance with Respiratory Ventilation, Less than 24 Consecutive Hours, Continuous Positive Airway Pressure (ICD-10-PCS; 2023-11-24)
DX: J84.10 Pulmonary fibrosis, unspecified (principal); G93.41 Metabolic encephalopathy; I50.31 Acute diastolic (congestive) heart failure; J96.21 Acute and chronic respiratory failure with hypoxia; J96.22 Acute and chronic respiratory failure with hypercapnia; Z68.42 Body mass index [BMI] 45.0-49.9, adult; E87.3 Alkalosis; F13.239 Sedative, hypnotic or anxiolytic dependence with withdrawal, unspecified; I25.10 Atherosclerotic heart disease of native coronary artery without angina pectoris; E03.9 Hypothyroidism, unspecified; F32.A Depression, unspecified; F41.9 Anxiety disorder, unspecified; G47.33 Obstructive sleep apnea (adult) (pediatric); J44.9 Chronic obstructive pulmonary disease, unspecified; I11.0 Hypertensive heart disease with heart failure; E11.649 Type 2 diabetes mellitus with hypoglycemia without coma; D64.9 Anemia, unspecified; E66.01 Morbid (severe) obesity due to excess calories; G89.29 Other chronic pain; M54.9 Dorsalgia, unspecified; T42.4X5A Adverse effect of benzodiazepines, initial encounter; Z91.199 Patient's noncompliance with other medical treatment and regimen due to unspecified reason; Z88.5 Allergy status to narcotic agent; Z79.84 Long term (current) use of oral hypoglycemic drugs; Z79.890 Hormone replacement therapy; Z79.82 Long term (current) use of aspirin; Z79.899 Other long term (current) drug therapy; Z99.81 Dependence on supplemental oxygen; Z79.4 Long term (current) use of insulin; Z95.1 Presence of aortocoronary bypass graft; M51.9 Unspecified thoracic, thoracolumbar and lumbosacral intervertebral disc disorder
CPT/HCPCS: 36415; 36416; 36600; 70450; 71045; 72125; 80048; 80053; 81001; 82550; 82805; 83540; 83550; 83605; 83690; 83880; 84443; 84484; 85025; 93005; 93306; 94640; 94660; 94664; 96374; 96376; 97139; J0360; J1120; J1650; J1815; J1940; J2405; J2765; J2920; J7512; J7620; J7999; P9047

== ENCOUNTER 2024-05-08 20:09 | Inpatient (IN) | payer MEDICARE, OTHER ==
[~2024-05-08 20:09] MED LIST: Iopamidol-370 76% 500 ML MDV (1 ML CHARGE) ONE
[2024-05-08 20:42] LABS: #Basophils 0.04 10x3/uL (0.0-0.2); %Basophils 0.5 % (0.0-1.0); %Eosinophils 2.7 % (0.0-10.0); %Lymphocytes 19.1 % (21.0-51.0); %Monocytes 8.8 % (0.0-10.0); %Neutrophils 68.7 % (42.0-75.0); Hematocrit 32.4 % (42.0-52.0); Hemoglobin 9.5 g/dL (14.0-18.0); Mean Corpuscular HGB CONC 29.3 g/dL (32.0-36.0); Mean Corpuscular Hemoglobin 23.5 pg (27.0-31.0); Platelet Count 296 10x3/uL (130-400); RBC Distribution Width 15.9 % (11.5-14.5); Red Blood Cell (RBC) Count 4.05 mill/uL (4.70-6.10)
[2024-05-08 20:58] LABS: ALT (SGPT) 9 U/L (8-55); AST (SGOT) 10 U/L (5-34); Albumin 3.4 g/dL (3.4-4.8); Alkaline Phosphatase 57 U/L (40-110); Anion Gap 11 mmol/L (10-20); BUN (Urea Nitrogen) 14 mg/dL (8.4-25.7); Bilirubin, Total 0.3 mg/dL (0.2-1.2); Calc. Creatinine Clearance 0 mL/min (70-130); Calcium 9.1 mg/dL (7.8-10.44); Carbon Dioxide 32 mmol/L (23-31); Chloride 98 mmol/L (98-107); Estimated GFR 81; Globulin 3.6 g/dL (2.4-3.5); Glucose 176 mg/dL (80-115); Potassium 4.4 mmol/L (3.5-5.1); Sodium 137 mmol/L (136-145)
[2024-05-08 20:58] LABS: Actual Bicarbonate (HCO3v) 32.9 mEq/L (22-28); Analyzer IN Cardio ER; Base Excess 6.4 mEq/L (-2.0 to +3.0); Calcium, Ionized (venous) 1.17 mmol/L (1.16-1.32); Chloride (VBG) 98 mmol/L (98-106); Hematocrit-VBG 30 % (42.0-52.0); Hemoglobin (Hb) 10.2 g/dL (12.6-17.4); Potassium (VBG) 4.27 mmol/L (3.70-5.30); Sodium 138 mmol/L (133-146)
[2024-05-08 21:05] LABS: Troponin I Less than 0.010 ng/mL (< 0.028)
[2024-05-08] MEDS ORDERED: Ipratropium/Albuterol 3 ML NEB ONE (21:07)
[2024-05-08] MEDS ORDERED: Furosemide 40 MG (4 mL) VIAL ONE (21:07)
[2024-05-08] MEDS ORDERED: Ondansetron PF 4 MG/2 ML Vial IVP PRN (21:45)
[2024-05-08] MEDS ORDERED: Doxycycline 100 MG CAP ONE (21:46)
[2024-05-08] MEDS ORDERED: Magnesium 2 GM/50 ML BAG (IN WATER) ONE (21:47)
[2024-05-08] MEDS ORDERED: predniSONE 20 MG TAB ONE (21:47)
[2024-05-08] MEDS ORDERED: Dextrose 5% in Water 1,000 ML IV PRN (22:32)
[2024-05-08] MEDS ORDERED: Glucagon 1 MG/ML KIT IM PRN (22:32)
[2024-05-08] MEDS ORDERED: Dextrose 50% Abboject 50 ML SYRINGE SLOW IVP PRN (22:32)
[2024-05-09] MEDS: cefTRIAXone\\ROCEPHIN 1 GM in Sodium Chloride 0.9% 100 ML IVPB SCH (00:43)
[2024-05-09] MEDS: Tamsulosin HCl 0.4 MG CAP PO SCH ×2 (00:44→16:49)
[2024-05-09] MEDS: ALPRAZolam 1 MG TAB PO PRN (00:44)
[2024-05-09] MEDS: HYDROcodone/Acetaminophen 5/325 mg Tablet PO PRN (00:44)
[2024-05-09] MEDS: traZODone HCl 50 MG TAB PO SCH ×2 (00:45→20:06)
[2024-05-09] MEDS: methylPREDNISolone Sod Succ 40 MG VIAL IVP SCH (00:47)
[2024-05-09 00:50] LABS: Troponin I Less than 0.010 ng/mL (< 0.028)
[2024-05-09 01:44] VITALS: BMI 47.5
[2024-05-09 02:52] LABS: Influenza A by NAA Not Detected (NotDetected); Influenza B by NAA Not Detected (NotDetected); SARS-CoV-2 NAA Rapid Test Not Detected (NotDetected)
[2024-05-09] MEDS: Insulin Lispro 100 UNIT/ML 10 ML VIAL SC PRN ×2 (03:41→05:34)
[2024-05-09 04:45] LABS: #Basophils 0.03 10x3/uL (0.0-0.2); #Eosinophils Less than 0.03 10x3/uL (0.0-0.7); %Basophils 0.3 % (0.0-1.0); %Eosinophils 0.1 % (0.0-10.0); %Lymphocytes 5.6 % (21.0-51.0); %Monocytes 1.6 % (0.0-10.0); %Neutrophils 91.9 % (42.0-75.0); Hematocrit 34.9 % (42.0-52.0); Mean Corpuscular HGB CONC 28.7 g/dL (32.0-36.0); Mean Corpuscular Volume 80.4 fL (78.0-98.0); Mean Platelet Volume 10.1 fL (7.4-10.4); Platelet Count 330 10x3/uL (130-400); RBC Distribution Width 15.9 % (11.5-14.5); Red Blood Cell (RBC) Count 4.34 mill/uL (4.70-6.10)
[2024-05-09 04:57] LABS: Troponin I Less than 0.010 ng/mL (< 0.028)
[2024-05-09 05:06] LABS: ALT (SGPT) 10 U/L (8-55); AST (SGOT) 8 U/L (5-34); Albumin 3.5 g/dL (3.4-4.8); Alkaline Phosphatase 64 U/L (40-110); Anion Gap 14 mmol/L (10-20); BUN (Urea Nitrogen) 14 mg/dL (8.4-25.7); Bilirubin, Total 0.4 mg/dL (0.2-1.2); Calc. Creatinine Clearance 121 mL/min (70-130); Calcium 9.5 mg/dL (7.8-10.44); Carbon Dioxide 33 mmol/L (23-31); Chloride 96 mmol/L (98-107); Estimated GFR 76; Glucose 288 mg/dL (80-115); Magnesium 2.2 mg/dL (1.6-2.6); Potassium 4.3 mmol/L (3.5-5.1); Protein, Total 7.5 g/dL (5.8-8.1); Sodium 139 mmol/L (136-145)
[2024-05-09] MEDS: Levothyroxine 150 MCG TAB PO SCH (05:35)
[2024-05-09] MEDS: Arformoterol 15 MCG/2 ML NEB NEB SCH (07:09)
[2024-05-09] MEDS: Budesonide 0.5 MG/2 ML NEB INH SCH (07:12)
[2024-05-09] MEDS: Doxycycline 100 MG in Sodium Chloride 0.9% 100 ML IVPB SCH (08:48)
[2024-05-09] MEDS: Enoxaparin 40 MG (0.4 mL) SYRINGE SC SCH (08:48)
[2024-05-09] MEDS: Furosemide 40 MG (4 mL) VIAL SLOW IVP SCH (08:48)
[2024-05-09] MEDS: Pantoprazole 40 MG VIAL IVP SCH (08:49)
[2024-05-09] MEDS: Citalopram 20 MG TAB PO SCH (08:49)
[2024-05-09] MEDS ORDERED: Furosemide 20 MG (2 mL) VIAL SLOW IVP SCH (09:00)
[2024-05-09] MEDS: glipiZIDE 10 MG TAB PO SCH ×2 (12:53→16:49)
[2024-05-09] MEDS: traMADol HCl 50 MG TAB PO PRN (12:53)
[2024-05-09] MEDS: Loratadine 10 MG TAB PO SCH (16:48)
[2024-05-09] MEDS: Ipratropium/Albuterol 3 ML NEB NEB PRN (19:00)
[2024-05-09] MEDS: Carvedilol 3.125 MG TAB PO SCH (20:06)
[2024-05-09] MEDS ORDERED: Nystatin Powder 15 GM BOT TOP PRN (20:38)
[2024-05-10] MEDS: Gabapentin 300 MG CAP PO SCH (10:10)
[2024-05-10] MEDS: Pantoprazole DR 40 MG TAB PO SCH (10:10)
[2024-05-10 10:25] LABS: #Basophils 0.07 10x3/uL (0.0-0.2); %Basophils 0.5 % (0.0-1.0); %Eosinophils 0.6 % (0.0-10.0); %Lymphocytes 15.7 % (21.0-51.0); %Monocytes 9.3 % (0.0-10.0); %Neutrophils 73.6 % (42.0-75.0); Hematocrit 33.1 % (42.0-52.0); Hemoglobin 9.7 g/dL (14.0-18.0); Mean Corpuscular HGB CONC 29.3 g/dL (32.0-36.0); Mean Corpuscular Hemoglobin 23.5 pg (27.0-31.0); Mean Corpuscular Volume 80.1 fL (78.0-98.0); Mean Platelet Volume 9.9 fL (7.4-10.4); Platelet Count 327 10x3/uL (130-400); RBC Distribution Width 16.1 % (11.5-14.5); Red Blood Cell (RBC) Count 4.13 mill/uL (4.70-6.10)
[2024-05-10 10:52] LABS: Anion Gap 13 mmol/L (10-20); BUN (Urea Nitrogen) 21 mg/dL (8.4-25.7); Calc. Creatinine Clearance 133 mL/min (70-130); Carbon Dioxide 33 mmol/L (23-31); Chloride 98 mmol/L (98-107); Estimated GFR 84; Glucose 209 mg/dL (80-115); Sodium 140 mmol/L (136-145)
[2024-05-10] MEDS: Acetaminophen 325 MG TAB PO PRN (11:19)
[2024-05-10] MEDS: Ondansetron ODT 4 MG TAB PO PRN (11:19)
[2024-05-10] MEDS: Furosemide 40 MG (4 mL) VIAL SLOW IVP SCH (13:39)
[2024-05-11 04:36] LABS: #Basophils 0.06 10x3/uL (0.0-0.2); %Basophils 0.5 % (0.0-1.0); %Eosinophils 1.6 % (0.0-10.0); %Lymphocytes 21.7 % (21.0-51.0); %Monocytes 9.1 % (0.0-10.0); %Neutrophils 66.8 % (42.0-75.0); Hematocrit 35.1 % (42.0-52.0); Hemoglobin 10.3 g/dL (14.0-18.0); Mean Corpuscular HGB CONC 29.3 g/dL (32.0-36.0); Mean Corpuscular Hemoglobin 23.6 pg (27.0-31.0); Mean Corpuscular Volume 80.3 fL (78.0-98.0); Mean Platelet Volume 9.9 fL (7.4-10.4); Platelet Count 357 10x3/uL (130-400); RBC Distribution Width 16.2 % (11.5-14.5); Red Blood Cell (RBC) Count 4.37 mill/uL (4.70-6.10)
[2024-05-11 04:49] LABS: Anion Gap 13 mmol/L (10-20); BUN (Urea Nitrogen) 25 mg/dL (8.4-25.7); Calc. Creatinine Clearance 124 mL/min (70-130); Calcium 9.5 mg/dL (7.8-10.44); Carbon Dioxide 35 mmol/L (23-31); Chloride 96 mmol/L (98-107); Estimated GFR 77; Glucose 249 mg/dL (80-115); Potassium 5.2 mmol/L (3.5-5.1); Sodium 139 mmol/L (136-145)
[2024-05-11] MEDS: Empagliflozin 10 MG TAB PO SCH (10:10)
[2024-05-11] MEDS ORDERED: Regadenoson 0.4 MG/5 ML SYRINGE ONE (11:24)
[2024-05-12 04:19] LABS: #Basophils 0.04 10x3/uL (0.0-0.2); %Basophils 0.3 % (0.0-1.0); %Eosinophils 1.5 % (0.0-10.0); %Lymphocytes 17.6 % (21.0-51.0); %Monocytes 9.6 % (0.0-10.0); %Neutrophils 70.4 % (42.0-75.0); Hematocrit 35.8 % (42.0-52.0); Hemoglobin 10.5 g/dL (14.0-18.0); Mean Corpuscular HGB CONC 29.3 g/dL (32.0-36.0); Mean Corpuscular Hemoglobin 23.2 pg (27.0-31.0); Mean Platelet Volume 9.9 fL (7.4-10.4); Platelet Count 334 10x3/uL (130-400); RBC Distribution Width 16.4 % (11.5-14.5); Red Blood Cell (RBC) Count 4.53 mill/uL (4.70-6.10)
[2024-05-12 04:41] LABS: Anion Gap 13 mmol/L (10-20); BUN (Urea Nitrogen) 27 mg/dL (8.4-25.7); Calc. Creatinine Clearance 148 mL/min (70-130); Calcium 9.1 mg/dL (7.8-10.44); Carbon Dioxide 33 mmol/L (23-31); Chloride 94 mmol/L (98-107); Estimated GFR 93; Glucose 245 mg/dL (80-115); Sodium 136 mmol/L (136-145)
[2024-05-13 05:09] LABS: #Basophils 0.06 10x3/uL (0.0-0.2); %Basophils 0.4 % (0.0-1.0); %Eosinophils 1.6 % (0.0-10.0); %Lymphocytes 14.8 % (21.0-51.0); %Monocytes 9.9 % (0.0-10.0); %Neutrophils 72.8 % (42.0-75.0); Hematocrit 36.3 % (42.0-52.0); Hemoglobin 10.9 g/dL (14.0-18.0); Mean Corpuscular Hemoglobin 23.7 pg (27.0-31.0); Mean Corpuscular Volume 78.9 fL (78.0-98.0); Mean Platelet Volume 10.7 fL (7.4-10.4); Platelet Count 351 10x3/uL (130-400); RBC Distribution Width 16.6 % (11.5-14.5)
[2024-05-13 05:29] LABS: Anion Gap 13 mmol/L (10-20); BUN (Urea Nitrogen) 28 mg/dL (8.4-25.7); Calc. Creatinine Clearance 108 mL/min (70-130); Calcium 9.4 mg/dL (7.8-10.44); Carbon Dioxide 32 mmol/L (23-31); Chloride 95 mmol/L (98-107); Estimated GFR 69; Glucose 245 mg/dL (80-115); Potassium 4.3 mmol/L (3.5-5.1); Sodium 136 mmol/L (136-145)
[2024-05-13] MEDS: Atorvastatin Calcium 20 MG TAB PO SCH (21:34)
[2024-05-13] MEDS: Lidocaine 4% Patch TD SCH (23:49)
[2024-05-14 05:09] LABS: Actual Bicarbonate (HCO3v) 34.3 mEq/L (22-28); Base Excess 8.4 mEq/L (-2.0 to +3.0); Calcium, Ionized (venous) 1.17 mmol/L (1.16-1.32); Chloride (VBG) 94 mmol/L (98-106); Hematocrit-VBG 36 % (42.0-52.0); Hemoglobin (Hb) 12.3 g/dL (12.6-17.4); Potassium (VBG) 4.05 mmol/L (3.70-5.30); Sodium 137 mmol/L (133-146); pH (venous) 7.425 (7.32-7.43)
[2024-05-14 05:14] LABS: #Basophils 0.06 10x3/uL (0.0-0.2); %Basophils 0.4 % (0.0-1.0); %Eosinophils 1.6 % (0.0-10.0); %Lymphocytes 18.3 % (21.0-51.0); %Monocytes 10.5 % (0.0-10.0); %Neutrophils 68.7 % (42.0-75.0); Hematocrit 37.3 % (42.0-52.0); Hemoglobin 11.3 g/dL (14.0-18.0); Mean Corpuscular HGB CONC 30.3 g/dL (32.0-36.0); Mean Corpuscular Hemoglobin 23.6 pg (27.0-31.0); Mean Corpuscular Volume 77.9 fL (78.0-98.0); Mean Platelet Volume 10.2 fL (7.4-10.4); Platelet Count 339 10x3/uL (130-400); RBC Distribution Width 16.7 % (11.5-14.5); Red Blood Cell (RBC) Count 4.79 mill/uL (4.70-6.10)
[2024-05-14 05:32] LABS: Anion Gap 11 mmol/L (10-20); BUN (Urea Nitrogen) 28 mg/dL (8.4-25.7); Calc. Creatinine Clearance 117 mL/min (70-130); Calcium 9.6 mg/dL (7.8-10.44); Carbon Dioxide 34 mmol/L (23-31); Cardiac Risk 5.4 (Less than 4.5); Chloride 94 mmol/L (98-107); Cholesterol 156 mg/dl (< 200 Desired); Estimated GFR 76; Glucose 213 mg/dL (80-115); HDL Cholesterol 29 mg/dL (>60 Neg Risk); LDL Cholesterol, Calculated 102 mg/dL; Potassium 3.9 mmol/L (3.5-5.1); Sodium 135 mmol/L (136-145); Triglycerides 125 mg/dL (Less than 150)
[2024-05-14] MEDS ORDERED: Lidocaine 4% Patch TD SCH (09:00)
[2024-05-14] MEDS: Aspirin 81 mg Enteric Coated Tablet PO SCH (10:24)
[2024-05-14] MEDS: Transdermal Patch Removal TOP SCH (13:54)
[2024-05-14] MEDS ORDERED: Transdermal Patch Removal TOP SCH (21:00)
[2024-05-15 04:45] LABS: #Basophils 0.06 10x3/uL (0.0-0.2); %Basophils 0.4 % (0.0-1.0); %Eosinophils 0.7 % (0.0-10.0); %Lymphocytes 15.8 % (21.0-51.0); %Neutrophils 70.7 % (42.0-75.0); Hemoglobin 11.1 g/dL (14.0-18.0); Mean Corpuscular Hemoglobin 23.3 pg (27.0-31.0); Mean Corpuscular Volume 77.7 fL (78.0-98.0); Mean Platelet Volume 10.1 fL (7.4-10.4); Platelet Count 321 10x3/uL (130-400); RBC Distribution Width 16.6 % (11.5-14.5); Red Blood Cell (RBC) Count 4.76 mill/uL (4.70-6.10)
[2024-05-15 04:59] LABS: Anion Gap 12 mmol/L (10-20); BUN (Urea Nitrogen) 31 mg/dL (8.4-25.7); Calc. Creatinine Clearance 97 mL/min (70-130); Carbon Dioxide 32 mmol/L (23-31); Chloride 97 mmol/L (98-107); Estimated GFR 63; Glucose 235 mg/dL (80-115); Potassium 4.1 mmol/L (3.5-5.1); Sodium 137 mmol/L (136-145)
[2024-05-15] MEDS: Furosemide 20 MG (2 mL) VIAL SLOW IVP SCH (15:27)
[2024-05-15] MEDS: Cefdinir 300 MG CAP PO SCH (20:43)
[2024-05-15] MEDS: Isosorbide Dinitrate 20 MG TAB PO SCH (20:44)
[2024-05-15] MEDS: Insulin Glargine 30 UNITS/0.3 ML VIAL SC SCH (20:46)
[2024-05-16 07:26] LABS: #Basophils 0.05 10x3/uL (0.0-0.2); %Basophils 0.4 % (0.0-1.0); %Eosinophils 1.5 % (0.0-10.0); %Monocytes 10.4 % (0.0-10.0); %Neutrophils 69.3 % (42.0-75.0); Hematocrit 37.2 % (42.0-52.0); Mean Corpuscular HGB CONC 29.6 g/dL (32.0-36.0); Mean Corpuscular Hemoglobin 23.5 pg (27.0-31.0); Mean Corpuscular Volume 79.5 fL (78.0-98.0); Mean Platelet Volume 10.1 fL (7.4-10.4); Platelet Count 357 10x3/uL (130-400); RBC Distribution Width 16.9 % (11.5-14.5); Red Blood Cell (RBC) Count 4.68 mill/uL (4.70-6.10)
[2024-05-16 07:38] LABS: Anion Gap 13 mmol/L (10-20); BUN (Urea Nitrogen) 28 mg/dL (8.4-25.7); Calc. Creatinine Clearance 115 mL/min (70-130); Calcium 9.7 mg/dL (7.8-10.44); Carbon Dioxide 32 mmol/L (23-31); Chloride 96 mmol/L (98-107); Estimated GFR 77; Glucose 225 mg/dL (80-115); Potassium 4.3 mmol/L (3.5-5.1); Sodium 137 mmol/L (136-145)
[2024-05-16 16:34] VITALS: BMI 43.9
[2024-05-16 16:55] VITALS: TEMP 98.3
[2024-05-16 20:03] VITALS: BP 172/72
== END 2024-05-16 20:12 | DRG 291 ==
LOC: ERS 20:09 → 2NO 21:45 → OBSVTOIN 05-09 12:07
PROVIDERS: ADMIT Internal Medicine; ATTEND Internal Medicine
DX: I11.0 Hypertensive heart disease with heart failure (principal); I50.33 Acute on chronic diastolic (congestive) heart failure; J96.21 Acute and chronic respiratory failure with hypoxia; J96.22 Acute and chronic respiratory failure with hypercapnia; L03.116 Cellulitis of left lower limb; Z68.41 Body mass index [BMI] 40.0-44.9, adult; J44.1 Chronic obstructive pulmonary disease with (acute) exacerbation; L03.115 Cellulitis of right lower limb; N40.0 Benign prostatic hyperplasia without lower urinary tract symptoms; E03.9 Hypothyroidism, unspecified; F41.9 Anxiety disorder, unspecified; K21.9 Gastro-esophageal reflux disease without esophagitis; E66.01 Morbid (severe) obesity due to excess calories; E78.5 Hyperlipidemia, unspecified; Z79.899 Other long term (current) drug therapy; D50.9 Iron deficiency anemia, unspecified; I25.10 Atherosclerotic heart disease of native coronary artery without angina pectoris
CPT/HCPCS: 36415; 36416; 71045; 71275; 78452; 80048; 80053; 80061; 82805; 83735; 83880; 84145; 84484; 85025; 87040; 93005; 93017; 93306; 93970; 94640; 96365; 96372; 96375; 96376; A9500; G0378; J0696; J1650; J1815; J1940; J2470; J2785; J2919; J3475; J7512; J7620; J7626; Q0162; Q9967

== ENCOUNTER 2024-07-16 10:17 | Inpatient (IN) | payer MEDICARE ==
[2024-07-16 10:56] LABS: #Basophils 0.05 10x3/uL (0.0-0.2); %Basophils 0.2 % (0.0-1.0); %Eosinophils 0.4 % (0.0-10.0); %Lymphocytes 8.3 % (21.0-51.0); %Monocytes 8.2 % (0.0-10.0); %Neutrophils 82.4 % (42.0-75.0); Hematocrit 30.8 % (42.0-52.0); Mean Corpuscular HGB CONC 29.2 g/dL (32.0-36.0); Mean Corpuscular Hemoglobin 23.9 pg (27.0-31.0); Mean Corpuscular Volume 81.9 fL (78.0-98.0); Mean Platelet Volume 9.5 fL (7.4-10.4); Platelet Count 309 10x3/uL (130-400); RBC Distribution Width 16.8 % (11.5-14.5); Red Blood Cell (RBC) Count 3.76 mill/uL (4.70-6.10)
[2024-07-16] MEDS ORDERED: cefTRIAXone (ROCEPHIN) 2 GM VIAL ONE (10:57)
[2024-07-16] MEDS ORDERED: Sodium Chloride 0.9% 100 ML ONE (10:58)
[2024-07-16 11:12] LABS: INR-International Normal Ratio 1.2; Prothrombin Time 15.1 sec (12.0-14.7)
[2024-07-16 11:13] LABS: PTT 40.3 sec (22.9-36.1)
[2024-07-16 11:14] LABS: ALT (SGPT) 8 U/L (8-55); AST (SGOT) 9 U/L (5-34); Albumin 3.1 g/dL (3.4-4.8); Alkaline Phosphatase 62 U/L (40-110); Anion Gap 12 mmol/L (10-20); BUN (Urea Nitrogen) 12 mg/dL (8.4-25.7); Bilirubin, Total 0.6 mg/dL (0.2-1.2); Calc. Creatinine Clearance 0 mL/min (70-130); Calcium 9.1 mg/dL (7.8-10.44); Carbon Dioxide 33 mmol/L (23-31); Chloride 98 mmol/L (98-107); Estimated GFR 87; Globulin 4.3 g/dL (2.4-3.5); Glucose 129 mg/dL (80-115); Lipase 6 U/L (8-78); Magnesium 1.8 mg/dL (1.6-2.6); Potassium 3.8 mmol/L (3.5-5.1); Protein, Total 7.4 g/dL (5.8-8.1); Sodium 139 mmol/L (136-145)
[2024-07-16] MEDS ORDERED: Furosemide 40 MG (4 mL) VIAL ONE (11:42)
[2024-07-16 12:56] LABS: Bacteria/HPF None Seen HPF (None Seen); Bilirubin Negative (Negative); Blood, Urine Negative (Negative); CAUTI Indications for Culture Dysuria,urgency,freq; Clarity Clear (Clear); Glucose, Urine (Dipstick) Normal (Negative); Ketone, Urine Negative (Negative); Leukocyte Negative Leu/uL (Negative); Nitrite Negative (Negative); Protein, Urine (Dipstick) 10 mg/dL (Neg-Trace); RBC/HPF 0-3 HPF (0-3); Specific Gravity, Urine 1.014 (1.002-1.036); Squamous Epithelial 0-3 HPF (0-3); Urobilinogen 3 mg/dL (Less than 2); WBC/HPF 0-3 HPF (0-3); pH, Urine 6.5 (5.0-9.0)
[2024-07-16] MEDS ORDERED: Azithromycin 500 MG VIAL ONE (13:09)
[2024-07-16 13:10] LABS: Urine Culture Reflex No No
[2024-07-16] MEDS ORDERED: Albuterol 2.5 MG (3 mL) NEB NEB PRN (14:44)
[2024-07-16] MEDS ORDERED: Dextrose 5% in Water 1,000 ML IV PRN (14:44)
[2024-07-16] MEDS ORDERED: Ondansetron PF 4 MG/2 ML Vial IVP PRN (14:44)
[2024-07-16] MEDS ORDERED: Acetaminophen 650 MG Suppository PR PRN (14:44)
[2024-07-16] MEDS ORDERED: Senokot S 8.6-50 MG TAB PO PRN (14:44)
[2024-07-16] MEDS ORDERED: Dextrose 50% Abboject 50 ML SYRINGE SLOW IVP PRN (14:44)
[2024-07-16] MEDS ORDERED: Glucagon 1 MG/ML KIT IM PRN (14:44)
[2024-07-16] MEDS: metroNIDAZOLE 500 MG in Premix 1 BAG IVPB SCH (15:33)
[2024-07-16] MEDS: Tamsulosin HCl 0.4 MG CAP PO SCH (15:39)
[2024-07-16 15:44] LABS: Magnesium 1.8 mg/dL (1.6-2.6)
[2024-07-16] MEDS: Ipratropium/Albuterol 3 ML NEB NEB SCH (19:47)
[2024-07-16] MEDS: Acetaminophen 325 MG TAB PO PRN (20:49)
[2024-07-16] MEDS: traZODone HCl 50 MG TAB PO SCH (20:51)
[2024-07-16] MEDS: Atorvastatin Calcium 20 MG TAB PO SCH (20:51)
[2024-07-16] MEDS: Insulin Lispro 100 UNIT/ML 10 ML VIAL SC PRN (20:52)
[2024-07-16] MEDS: Carvedilol 3.125 MG TAB PO SCH (20:52)
[2024-07-16] MEDS ORDERED: Melatonin 3 MG TAB PO PRN (22:33)
[2024-07-16] MEDS: Guaifenesin DM 100-10/5 ML UDCUP PO PRN (22:47)
[2024-07-16] MEDS: Melatonin 3 MG TAB PO PRN (22:48)
[2024-07-17] MEDS: Nystatin Powder 15 GM BOT TOP PRN (01:30)
[2024-07-17 03:47] LABS: #Basophils 0.03 10x3/uL (0.0-0.2); %Basophils 0.2 % (0.0-1.0); %Eosinophils 0.6 % (0.0-10.0); %Lymphocytes 12.9 % (21.0-51.0); %Monocytes 9.5 % (0.0-10.0); %Neutrophils 76.3 % (42.0-75.0); Hematocrit 30.2 % (42.0-52.0); Hemoglobin 8.9 g/dL (14.0-18.0); Mean Corpuscular HGB CONC 29.5 g/dL (32.0-36.0); Mean Corpuscular Hemoglobin 23.8 pg (27.0-31.0); Mean Corpuscular Volume 80.7 fL (78.0-98.0); Mean Platelet Volume 9.6 fL (7.4-10.4); Platelet Count 311 10x3/uL (130-400); RBC Distribution Width 16.8 % (11.5-14.5); Red Blood Cell (RBC) Count 3.74 mill/uL (4.70-6.10)
[2024-07-17 04:09] LABS: Anion Gap 12 mmol/L (10-20); BUN (Urea Nitrogen) 12 mg/dL (8.4-25.7); Calc. Creatinine Clearance 0 mL/min (70-130); Calcium 8.7 mg/dL (7.8-10.44); Carbon Dioxide 34 mmol/L (23-31); Chloride 99 mmol/L (98-107); Estimated GFR 91; Glucose 200 mg/dL (80-115); Potassium 3.7 mmol/L (3.5-5.1); Sodium 141 mmol/L (136-145)
[2024-07-17] MEDS: Furosemide 40 MG (4 mL) VIAL SLOW IVP SCH (05:22)
[2024-07-17] MEDS: Ondansetron ODT 4 MG TAB PO PRN (05:27)
[2024-07-17] MEDS: Insulin Lispro 100 UNIT/ML 10 ML VIAL SC PRN (06:31)
[2024-07-17 08:05] VITALS: BMI 47.3
[2024-07-17] MEDS: Enoxaparin 40 MG (0.4 mL) SYRINGE SC SCH (08:27)
[2024-07-17] MEDS: Aspirin 81 mg Enteric Coated Tablet PO SCH (08:27)
[2024-07-17] MEDS: Gabapentin 300 MG CAP PO SCH (08:27)
[2024-07-17] MEDS: Empagliflozin 10 MG TAB PO SCH (08:27)
[2024-07-17] MEDS: Pantoprazole 40 MG DR.TAB PO SCH (08:27)
[2024-07-17] MEDS: Citalopram 20 MG TAB PO SCH (08:28)
[2024-07-17] MEDS: ALPRAZolam 0.5 MG TAB PO SCH (10:42)
[2024-07-17] MEDS: cefTRIAXone\\ROCEPHIN 1 GM in Sodium Chloride 0.9% 100 ML IVPB SCH (12:43)
[2024-07-17] MEDS: Azithromycin 500 MG in Sodium Chloride 0.9% 250 ML 250 ML IVPB SCH (13:41)
[2024-07-17] MEDS: ALPRAZolam 1 MG TAB PO PRN (21:53)
[2024-07-18 04:33] LABS: #Basophils 0.03 10x3/uL (0.0-0.2); %Basophils 0.2 % (0.0-1.0); %Eosinophils 1.2 % (0.0-10.0); %Lymphocytes 13.7 % (21.0-51.0); %Monocytes 10.3 % (0.0-10.0); %Neutrophils 74.1 % (42.0-75.0); Hematocrit 29.9 % (42.0-52.0); Hemoglobin 8.5 g/dL (14.0-18.0); Mean Corpuscular HGB CONC 28.4 g/dL (32.0-36.0); Mean Corpuscular Hemoglobin 23.5 pg (27.0-31.0); Mean Corpuscular Volume 82.8 fL (78.0-98.0); Mean Platelet Volume 9.9 fL (7.4-10.4); Platelet Count 315 10x3/uL (130-400); Red Blood Cell (RBC) Count 3.61 mill/uL (4.70-6.10)
[2024-07-18 05:01] LABS: Anion Gap 13 mmol/L (10-20); BUN (Urea Nitrogen) 17 mg/dL (8.4-25.7); Calc. Creatinine Clearance 132 mL/min (70-130); Calcium 9.2 mg/dL (7.8-10.44); Carbon Dioxide 35 mmol/L (23-31); Chloride 97 mmol/L (98-107); Estimated GFR 83; Glucose 195 mg/dL (80-115); Potassium 3.9 mmol/L (3.5-5.1); Sodium 141 mmol/L (136-145)
[2024-07-18 05:04] LABS: Platelet Adequacy Comment Platelets Normal; Polychromasia SLIGHT = 2-3 cells HPF (0-2)
[2024-07-18] MEDS: HYDROcodone/Acetaminophen 5/325 mg Tablet PO PRN (09:04)
[2024-07-18] MEDS ORDERED: Sodium Chloride 0.65% Nasal 44 ML BOT EA NARE PRN (18:39)
[2024-07-19 05:19] LABS: Anion Gap 11 mmol/L (10-20); BUN (Urea Nitrogen) 20 mg/dL (8.4-25.7); Calc. Creatinine Clearance 142 mL/min (70-130); Calcium 9.2 mg/dL (7.8-10.44); Carbon Dioxide 36 mmol/L (23-31); Chloride 96 mmol/L (98-107); Estimated GFR 92; Glucose 202 mg/dL (80-115); Potassium 3.9 mmol/L (3.5-5.1); Sodium 139 mmol/L (136-145)
[2024-07-19 05:29] LABS: #Basophils 0.04 10x3/uL (0.0-0.2); %Basophils 0.3 % (0.0-1.0); %Eosinophils 2.6 % (0.0-10.0); %Lymphocytes 17.6 % (21.0-51.0); %Monocytes 10.3 % (0.0-10.0); %Neutrophils 68.6 % (42.0-75.0); Hemoglobin 8.6 g/dL (14.0-18.0); Mean Corpuscular HGB CONC 28.7 g/dL (32.0-36.0); Mean Corpuscular Hemoglobin 23.6 pg (27.0-31.0); Mean Corpuscular Volume 82.4 fL (78.0-98.0); Mean Platelet Volume 9.8 fL (7.4-10.4); Platelet Count 344 10x3/uL (130-400); RBC Distribution Width 16.8 % (11.5-14.5); Red Blood Cell (RBC) Count 3.64 mill/uL (4.70-6.10)
[2024-07-19 07:29] LABS: Anisocytosis SLIGHT = 6-15 cells HPF (0-5); Elliptocytes SLIGHT = 2-5 cells HPF (0-1); Hypochromia SLIGHT = 6-15 cells HPF (0-5); Macrocytosis SLIGHT = 6-15 cells HPF (0-5); Platelet Adequacy Comment Platelets Normal; Polychromasia SLIGHT = 2-3 cells HPF (0-2)
[2024-07-19] MEDS: Gabapentin 300 MG CAP PO SCH (08:13)
[2024-07-19] MEDS: Furosemide 40 MG TAB PO SCH (08:15)
[2024-07-19] MEDS: Amoxicillin/Potassium Clav 875 MG TAB PO SCH (14:42)
[2024-07-20 04:32] LABS: #Basophils 0.04 10x3/uL (0.0-0.2); %Basophils 0.3 % (0.0-1.0); %Eosinophils 2.9 % (0.0-10.0); %Lymphocytes 18.5 % (21.0-51.0); %Neutrophils 66.5 % (42.0-75.0); Hematocrit 31.7 % (42.0-52.0); Mean Corpuscular HGB CONC 28.4 g/dL (32.0-36.0); Mean Corpuscular Hemoglobin 23.4 pg (27.0-31.0); Mean Corpuscular Volume 82.6 fL (78.0-98.0); Mean Platelet Volume 9.4 fL (7.4-10.4); Platelet Count 376 10x3/uL (130-400); RBC Distribution Width 16.7 % (11.5-14.5); Red Blood Cell (RBC) Count 3.84 mill/uL (4.70-6.10)
[2024-07-20 04:43] LABS: Anion Gap 11 mmol/L (10-20); BUN (Urea Nitrogen) 20 mg/dL (8.4-25.7); Calc. Creatinine Clearance 165 mL/min (70-130); Calcium 9.4 mg/dL (7.8-10.44); Carbon Dioxide 38 mmol/L (23-31); Chloride 95 mmol/L (98-107); Estimated GFR 96; Glucose 178 mg/dL (80-115); Potassium 4.2 mmol/L (3.5-5.1); Sodium 140 mmol/L (136-145)
[2024-07-20] MEDS: Amoxicillin/Potassium Clav 875 MG TAB PO SCH (06:45)
[2024-07-20 07:44] VITALS: BP 143/68; TEMP 98.5
== END 2024-07-20 11:53 | DRG 871 ==
LOC: ERS 10:17 → PCU 14:29
PROVIDERS: ADMIT Family Medicine; ATTEND Family Medicine
DX: A41.9 Sepsis, unspecified organism (principal); J69.0 Pneumonitis due to inhalation of food and vomit; J96.11 Chronic respiratory failure with hypoxia; J44.0 Chronic obstructive pulmonary disease with (acute) lower respiratory infection; K57.32 Diverticulitis of large intestine without perforation or abscess without bleeding; J96.12 Chronic respiratory failure with hypercapnia; Z68.42 Body mass index [BMI] 45.0-49.9, adult; I11.0 Hypertensive heart disease with heart failure; N40.0 Benign prostatic hyperplasia without lower urinary tract symptoms; E78.5 Hyperlipidemia, unspecified; J84.10 Pulmonary fibrosis, unspecified; E11.9 Type 2 diabetes mellitus without complications; E66.01 Morbid (severe) obesity due to excess calories; E03.9 Hypothyroidism, unspecified; F41.9 Anxiety disorder, unspecified; M19.90 Unspecified osteoarthritis, unspecified site; I25.10 Atherosclerotic heart disease of native coronary artery without angina pectoris; I50.9 Heart failure, unspecified; F32.A Depression, unspecified; Z99.81 Dependence on supplemental oxygen; Z88.5 Allergy status to narcotic agent; Z87.891 Personal history of nicotine dependence; Z95.1 Presence of aortocoronary bypass graft; I25.2 Old myocardial infarction
CPT/HCPCS: 36415; 36416; 70450; 71045; 74177; 80048; 80053; 81001; 83605; 83690; 83735; 83880; 85025; 85610; 85730; 87040; 87428; 93005; 94640; 94760; 96365; 96367; 96375; J0456; J0696; J1650; J1815; J1940; J7050; J7620; Q0162; Q9967

== ENCOUNTER 2024-07-24 16:16 | Inpatient (IN) | payer MEDICARE, OTHER ==
[2024-07-24] MEDS ORDERED: Sodium Chloride 0.9% 100 ML ONE (17:12)
[2024-07-24] MEDS ORDERED: methylPREDNISolone Sod Succ/PF 125 MG/2 ML VIAL ONE (17:12)
[2024-07-24] MEDS ORDERED: Cefepime 2 GM VIAL ONE (17:12)
[2024-07-24 17:19] LABS: #Basophils Less than 0.03 10x3/uL (0.0-0.2); %Basophils 0.1 % (0.0-1.0); %Eosinophils 2.1 % (0.0-10.0); %Lymphocytes 13.8 % (21.0-51.0); %Monocytes 9.3 % (0.0-10.0); Hematocrit 35.9 % (42.0-52.0); Hemoglobin 10.4 g/dL (14.0-18.0); Mean Corpuscular Hemoglobin 23.7 pg (27.0-31.0); Mean Platelet Volume 9.6 fL (7.4-10.4); Platelet Count 375 10x3/uL (130-400); RBC Distribution Width 16.7 % (11.5-14.5); Red Blood Cell (RBC) Count 4.38 mill/uL (4.70-6.10)
[2024-07-24 17:40] LABS: Troponin I 0.012 ng/mL (< 0.028)
[2024-07-24 17:41] LABS: INR-International Normal Ratio 1.1; Prothrombin Time 13.9 sec (12.0-14.7)
[2024-07-24 17:55] LABS: ALT (SGPT) Less than 7 U/L (Less than 45)
[2024-07-24 17:59] LABS: AST (SGOT) 20 U/L (11-34); Albumin 3.2 g/dL (3.1-4.5); Alkaline Phosphatase 50 U/L (40-110); Anion Gap 12 mmol/L (10-20); BUN (Urea Nitrogen) 15 mg/dL (8.4-25.7); Bilirubin, Total 0.2 mg/dL (0.3-1.2); Calc. Creatinine Clearance 0 mL/min (70-130); Carbon Dioxide 37 mmol/L (23-31); Chloride 95 mmol/L (98-107); Estimated GFR 83; Globulin 4.5 g/dL (2.4-3.5); Glucose 173 mg/dL (80-115); Lipase 16 U/L (8-78); Magnesium 2.1 mg/dL (1.6-2.6); Potassium 4.5 mmol/L (3.5-5.1); Protein, Total 7.7 g/dL (5.8-8.1); Sodium 139 mmol/L (136-145)
[2024-07-24] MEDS ORDERED: Furosemide 40 MG (4 mL) VIAL ONE (19:05)
[2024-07-24] MEDS ORDERED: Ipratropium/Albuterol 3 ML NEB ONE (19:06)
[2024-07-24] MEDS ORDERED: Acetaminophen 650 MG Suppository PR PRN (19:21)
[2024-07-24] MEDS ORDERED: Vancomycin (BATCH) 2 GM/500 ML BAG ONE (19:24)
[2024-07-24] MEDS: Vancomycin (BATCH) 2 GM in Premix 1 BAG IVPB SCH (20:54)
[2024-07-24 20:55] VITALS: BMI 46.3
[2024-07-24] MEDS ORDERED: Famotidine 20 MG TAB PO SCH (21:00)
[2024-07-24] MEDS: Isosorbide Dinitrate 5 MG TAB PO SCH (21:25)
[2024-07-24] MEDS: ALPRAZolam 1 MG TAB PO SCH (21:25)
[2024-07-24] MEDS: traZODone HCl 50 MG TAB PO SCH (21:26)
[2024-07-24] MEDS: guaiFENesin/DM ER PO SCH (21:27)
[2024-07-24] MEDS: Atorvastatin Calcium 20 MG TAB PO SCH (21:27)
[2024-07-24] MEDS: Gabapentin 300 MG CAP PO SCH (21:27)
[2024-07-24] MEDS: Acetaminophen 325 MG TAB PO PRN (21:28)
[2024-07-24] MEDS: Senokot S 8.6-50 MG TAB PO SCH (21:28)
[2024-07-24] MEDS: cefTRIAXone\\ROCEPHIN 1 GM in Sodium Chloride 0.9% 100 ML IVPB SCH (21:29)
[2024-07-24] MEDS: Insulin Glargine 30 UNITS/0.3 ML VIAL SC SCH (21:29)
[2024-07-24] MEDS: Azithromycin 500 MG in Sodium Chloride 0.9% 250 ML 250 ML IVPB SCH (21:30)
[2024-07-24 21:33] LABS: Legionella Urinary Ag Negative (Negative); Strep pneumo Urine Ag NEGATIVE (NEGATIVE)
[2024-07-25] MEDS: Calcium Carbonate 500 MG ChewTAB PO PRN (00:35)
[2024-07-25 04:12] LABS: #Basophils Less than 0.03 10x3/uL (0.0-0.2); #Eosinophils Less than 0.03 10x3/uL (0.0-0.7); %Basophils 0.1 % (0.0-1.0); %Lymphocytes 10.1 % (21.0-51.0); %Monocytes 2.8 % (0.0-10.0); %Neutrophils 85.8 % (42.0-75.0); Hematocrit 34.2 % (42.0-52.0); Hemoglobin 9.7 g/dL (14.0-18.0); Mean Corpuscular HGB CONC 28.4 g/dL (32.0-36.0); Mean Corpuscular Hemoglobin 23.7 pg (27.0-31.0); Mean Corpuscular Volume 83.4 fL (78.0-98.0); Mean Platelet Volume 9.5 fL (7.4-10.4); Platelet Count 344 10x3/uL (130-400); RBC Distribution Width 16.7 % (11.5-14.5)
[2024-07-25 04:28] LABS: Anion Gap 11 mmol/L (10-20); BUN (Urea Nitrogen) 15 mg/dL (8.4-25.7); Calc. Creatinine Clearance 156 mL/min (70-130); Carbon Dioxide 37 mmol/L (23-31); Chloride 97 mmol/L (98-107); Estimated GFR 95; Glucose 280 mg/dL (80-115); Potassium 4.3 mmol/L (3.5-5.1); Sodium 141 mmol/L (136-145)
[2024-07-25] MEDS: Polyethylene Glycol 3350 17 GM Packet PO SCH (08:22)
[2024-07-25] MEDS: Citalopram 20 MG TAB PO SCH (08:22)
[2024-07-25] MEDS: Enoxaparin 40 MG (0.4 mL) SYRINGE SC SCH (08:22)
[2024-07-25] MEDS: Lisinopril 2.5 MG TAB PO SCH (08:23)
[2024-07-25] MEDS: glipiZIDE 10 MG TAB PO SCH (08:23)
[2024-07-25] MEDS: Empagliflozin 10 MG TAB PO SCH (08:23)
[2024-07-25] MEDS: Ascorbic Acid 500 mg Chewable Tablet PO SCH (08:23)
[2024-07-25] MEDS: Pantoprazole 40 MG DR.TAB PO SCH (08:24)
[2024-07-25] MEDS: predniSONE 20 MG TAB PO SCH (08:24)
[2024-07-25] MEDS: Tamsulosin HCl 0.4 MG CAP PO SCH (16:57)
[2024-07-25] MEDS ORDERED: Dextrose 50% Abboject 50 ML SYRINGE SLOW IVP PRN (17:28)
[2024-07-25] MEDS ORDERED: Glucagon 1 MG/ML KIT IM PRN (17:28)
[2024-07-25] MEDS ORDERED: Dextrose 5% in Water 1,000 ML IV PRN (17:28)
[2024-07-25 17:50] LABS: Actual Bicarbonate (HCO3a) 49.4 mEq/L (22-28); Base Excess (BEa) 20.1 mEq/L (-2.0 to +3.0); Calcium, Ionized (arterial) 1.24 mmol/L (1.12-1.30); Hematocrit-ABG 34 % (42.0-52.0); Hemoglobin (Hb) 11.6 g/dL (14.0-18.0); Potassium - ABG Lab 4.85 mmol/L (3.70-5.30); pH, Arterial 7.374 (7.35-7.45)
[2024-07-25 17:56] LABS: CO2 Tension 86.6 mmHg (35.0-45.0); O2 Tension (PaO2), arterial 58.3 mmHg (> 70.0); Puncture Site Left Radial artery
[2024-07-25] MEDS: Ipratropium/Albuterol 3 ML NEB NEB SCH ×2 (18:59→19:18)
[2024-07-25] MEDS: HYDROcodone/Acetaminophen 5/325 mg Tablet PO PRN (20:28)
[2024-07-25] MEDS: Insulin Lispro 100 UNIT/ML 10 ML VIAL SC PRN (20:38)
[2024-07-25] MEDS: ALPRAZolam 0.5 MG TAB PO PRN (20:40)
[2024-07-25] MEDS: Polyvinyl Alcohol 1.4%/Povidone 0.6% Opth Drops EA EYE PRN (21:46)
[2024-07-25] MEDS: Simethicone Chewable 80 MG TAB PO PRN (21:52)
[2024-07-25] MEDS: Melatonin 3 MG TAB PO PRN (23:56)
[2024-07-26] MEDS ORDERED: Ipratropium/Albuterol 3 ML NEB ONE (01:15)
[2024-07-26] MEDS: Benzonatate 100 MG CAP PO PRN (01:16)
[2024-07-26 06:14] LABS: #Basophils 0.03 10x3/uL (0.0-0.2); #Eosinophils Less than 0.03 10x3/uL (0.0-0.7); %Basophils 0.3 % (0.0-1.0); %Eosinophils 0.1 % (0.0-10.0); %Lymphocytes 16.6 % (21.0-51.0); %Monocytes 9.9 % (0.0-10.0); %Neutrophils 72.6 % (42.0-75.0); Hematocrit 36.8 % (42.0-52.0); Hemoglobin 10.6 g/dL (14.0-18.0); Mean Corpuscular HGB CONC 28.8 g/dL (32.0-36.0); Mean Corpuscular Hemoglobin 23.9 pg (27.0-31.0); Mean Corpuscular Volume 83.1 fL (78.0-98.0); Mean Platelet Volume 9.2 fL (7.4-10.4); Platelet Count 364 10x3/uL (130-400); Red Blood Cell (RBC) Count 4.43 mill/uL (4.70-6.10)
[2024-07-26 06:45] LABS: ALT (SGPT) Less than 7 U/L (Less than 45); AST (SGOT) 11 U/L (11-34); Albumin 3.1 g/dL (3.1-4.5); Alkaline Phosphatase 46 U/L (40-110); Anion Gap 10 mmol/L (10-20); BUN (Urea Nitrogen) 16 mg/dL (8.4-25.7); Bilirubin, Total 0.2 mg/dL (0.3-1.2); Calc. Creatinine Clearance 176 mL/min (70-130); Calcium 9.4 mg/dL (7.8-10.44); Carbon Dioxide 38 mmol/L (23-31); Chloride 98 mmol/L (98-107); Estimated GFR 98; Glucose 85 mg/dL (80-115); Magnesium 2.2 mg/dL (1.6-2.6); Potassium 4.2 mmol/L (3.5-5.1); Protein, Total 7.1 g/dL (5.8-8.1); Sodium 142 mmol/L (136-145)
[2024-07-26] MEDS: Insulin Glargine 30 UNITS/0.3 ML VIAL SC SCH (09:57)
[2024-07-26 10:01] LABS: Base Excess 11.7 mEq/L (-2.0 to +3.0); Calcium, Ionized (venous) 1.19 mmol/L (1.16-1.32); Chloride (VBG) 95 mmol/L (98-106); Hematocrit-VBG 35 % (42.0-52.0); Hemoglobin (Hb) 11.8 g/dL (12.6-17.4); Sodium 141 mmol/L (133-146); pH (venous) 7.382 (7.32-7.43)
[2024-07-26 10:02] LABS: Actual Bicarbonate (HCO3v) 39.2 mEq/L (22-28)
[2024-07-26] MEDS: GUAIFENESIN SF SOLN 200 MG/10 ML UDCUP PO PRN (13:56)
[2024-07-26] MEDS: Benzonatate 100 MG CAP PO SCH (13:56)
[2024-07-26] MEDS: ALPRAZolam 1 MG TAB PO PRN (20:58)
[2024-07-26] MEDS: Carvedilol 3.125 MG TAB PO SCH (21:52)
[2024-07-26] MEDS: Melatonin 3 MG TAB PO PRN (22:54)
[2024-07-27 06:26] LABS: #Basophils Less than 0.03 10x3/uL (0.0-0.2); #Eosinophils Less than 0.03 10x3/uL (0.0-0.7); %Basophils 0.3 % (0.0-1.0); %Eosinophils 0.1 % (0.0-10.0); %Lymphocytes 16.6 % (21.0-51.0); %Neutrophils 71.5 % (42.0-75.0); Hematocrit 35.3 % (42.0-52.0); Hemoglobin 10.2 g/dL (14.0-18.0); Mean Corpuscular HGB CONC 28.9 g/dL (32.0-36.0); Mean Corpuscular Hemoglobin 23.7 pg (27.0-31.0); Mean Corpuscular Volume 82.1 fL (78.0-98.0); Mean Platelet Volume 9.6 fL (7.4-10.4); Platelet Count 332 10x3/uL (130-400); RBC Distribution Width 17.1 % (11.5-14.5)
[2024-07-27 06:46] LABS: Anion Gap 13 mmol/L (10-20); BUN (Urea Nitrogen) 19 mg/dL (8.4-25.7); Calc. Creatinine Clearance 173 mL/min (70-130); Calcium 9.1 mg/dL (7.8-10.44); Carbon Dioxide 38 mmol/L (23-31); Chloride 95 mmol/L (98-107); Estimated GFR 98; Glucose 108 mg/dL (80-115); Sodium 142 mmol/L (136-145)
[2024-07-27 06:55] LABS: Hypochromia SLIGHT = 6-15 cells HPF (0-5); Platelet Adequacy Comment Platelets Normal; Polychromasia SLIGHT = 2-3 cells HPF (0-2)
[2024-07-27 07:14] LABS: Thyroid Stimulating Hormone 5.3154 uIU/mL (0.35-4.94)
[2024-07-27] MEDS: Furosemide 40 MG TAB PO SCH (09:58)
[2024-07-27] MEDS: Doxycycline 100 MG CAP PO SCH (21:08)
[2024-07-28] MEDS: Ondansetron PF 4 MG/2 ML Vial IVP PRN (02:25)
[2024-07-28 05:52] LABS: #Basophils Less than 0.03 10x3/uL (0.0-0.2); #Eosinophils Less than 0.03 10x3/uL (0.0-0.7); %Basophils 0.3 % (0.0-1.0); %Lymphocytes 26.7 % (21.0-51.0); %Monocytes 16.5 % (0.0-10.0); %Neutrophils 56.2 % (42.0-75.0); Hematocrit 38.3 % (42.0-52.0); Hemoglobin 11.2 g/dL (14.0-18.0); Mean Corpuscular HGB CONC 29.2 g/dL (32.0-36.0); Mean Corpuscular Hemoglobin 23.7 pg (27.0-31.0); Mean Corpuscular Volume 81.1 fL (78.0-98.0); Mean Platelet Volume 9.5 fL (7.4-10.4); Platelet Count 303 10x3/uL (130-400); RBC Distribution Width 17.2 % (11.5-14.5); Red Blood Cell (RBC) Count 4.72 mill/uL (4.70-6.10)
[2024-07-28 06:08] LABS: Anion Gap 10 mmol/L (10-20); BUN (Urea Nitrogen) 19 mg/dL (8.4-25.7); Calc. Creatinine Clearance 169 mL/min (70-130); Calcium 9.4 mg/dL (7.8-10.44); Carbon Dioxide 35 mmol/L (23-31); Chloride 98 mmol/L (98-107); Estimated GFR 97; Glucose 136 mg/dL (80-115); Magnesium 2.2 mg/dL (1.6-2.6); Potassium 4.1 mmol/L (3.5-5.1); Sodium 139 mmol/L (136-145)
[2024-07-28] MEDS: Cyanocobalamin (Vitamin B-12) 1,000 MCG TAB PO SCH (09:51)
[2024-07-28] MEDS: Sodium Chloride 0.65% Nasal 44 ML BOT EA NARE PRN (20:30)
[2024-07-28] MEDS: Nystatin Powder 15 GM BOT TOP PRN (20:31)
[2024-07-29] MEDS: guaiFENesin/Codeine 200 mg/20 mg 10 ml Cup PO PRN (00:28)
[2024-07-29] MEDS: Sodium Chloride 0.65% Nasal 44 ML BOT EA NARE SCH (08:57)
[2024-07-29] MEDS: Nystatin Powder 15 GM BOT TOP SCH (10:20)
[2024-07-30] MEDS: Cefdinir 300 MG CAP PO SCH (19:52)
[2024-07-31] MEDS: Albuterol 2.5 MG (3 mL) NEB NEB PRN (03:25)
[2024-07-31] MEDS ORDERED: predniSONE 5 MG TAB PO SCH (08:00)
[2024-07-31] MEDS: Glimepiride 2 MG TAB PO SCH (09:53)
[2024-08-01 15:01] VITALS: BP 111/63; TEMP 98.1
== END 2024-08-01 16:09 | DRG 193 ==
LOC: ERS 16:16 → T4-B 19:26 → OBSVTOIN 07-25 16:13
PROVIDERS: ADMIT Student in an Organized Health Care Education/Training Program; ATTEND Internal Medicine
DX: J18.9 Pneumonia, unspecified organism (principal); G93.41 Metabolic encephalopathy; J96.21 Acute and chronic respiratory failure with hypoxia; I50.33 Acute on chronic diastolic (congestive) heart failure; J44.1 Chronic obstructive pulmonary disease with (acute) exacerbation; J98.11 Atelectasis; J44.0 Chronic obstructive pulmonary disease with (acute) lower respiratory infection; I11.0 Hypertensive heart disease with heart failure; E78.5 Hyperlipidemia, unspecified; E11.9 Type 2 diabetes mellitus without complications; N40.0 Benign prostatic hyperplasia without lower urinary tract symptoms; E66.01 Morbid (severe) obesity due to excess calories; E03.9 Hypothyroidism, unspecified; G89.29 Other chronic pain; I25.10 Atherosclerotic heart disease of native coronary artery without angina pectoris; F41.9 Anxiety disorder, unspecified; Z79.899 Other long term (current) drug therapy; Z95.1 Presence of aortocoronary bypass graft; Z87.891 Personal history of nicotine dependence; Z60.2 Problems related to living alone; R53.83 Other fatigue; J84.10 Pulmonary fibrosis, unspecified
CPT/HCPCS: 36415; 36416; 36600; 71045; 71275; 80048; 80053; 82140; 82607; 82805; 83605; 83690; 83735; 83880; 84145; 84443; 84484; 85025; 85610; 85730; 87040; 87070; 87081; 87205; 87428; 87449; 87899; 93005; 94640; 96365; 96367; 96372; 96375; G0378; J0456; J0692; J0696; J1650; J1815; J1940; J2405; J2919; J3370; J7050; J7512; J7611; J7620; Q9967